=== PATIENT | male | born 1940 | race Caucasian/White ===

== ENCOUNTER 2016-07-05 09:28 | Day surgery (SDC) | payer MEDICARE, BC ==
[2016-07-05] MEDS ORDERED: Morphine INJ* 4 MG/ML 1 ML SYRINGE IV ONE ×2 (09:52→13:25)
[2016-07-05] MEDS ORDERED: NS 0.9% 1000 ML* 1,000 ML IV ONE (09:52)
[2016-07-05] MEDS: Ondansetron INJ* 2 MG/ML VIAL IV ONE ×3 (10:55→13:58)
[2016-07-05 11:02] LABS: Hematocrit 39 % (42-52); Hemoglobin 13.2 g/dl (14.0-18.0); Mean Corpuscular HGB Conc 34 g/dl (31-36); Mean Corpuscular Hemoglobin 31 pg (27-31); Mean Corpuscular Volume 91 fL (80-94); Mean Platelet Volume 8 um3 (7.4-10.4); Red Cell Distribution Width 14 % (10.5-15)
[2016-07-05 11:20] LABS: ALT 21 U/L (7-52); AST 20 U/L (13-39); Alkaline Phosphatase 61 U/L (34-104); Amylase 28 U/L (29-103); Anion Gap 6 mmol/L (2-11); BUN/Creatinine Ratio 17.4 (8-20); Blood Urea Nitrogen 15 mg/dL (6-24); C Reactive Protein 28.39 mg/L (< 5.00); CO2 Carbon Dioxide 28 mmol/L (22-32); Calcium 9.3 mg/dL (8.6-10.3); Chloride 102 mmol/L (101-111); EGFR African American 110.9 (>60); EGFR Non-African American 86.2 (>60); Globulin 2.9 g/dL (2-4); Glucose 111 mg/dL (70-100); Lipase < 10 U/L (11.0-82.0); Magnesium 1.8 mg/dL (1.9-2.7); Potassium 4.3 mmol/L (3.5-5.0); Sodium 136 mmol/L (133-145); Total Protein 6.9 g/dL (6.4-8.9)
[2016-07-05 11:21] LABS: Troponin I 0.01 ng/mL (<0.04)
[2016-07-05 12:22] LABS: Urine Bacteria Absent (Absent); Urine Bilirubin Negative (Negative); Urine Glucose Negative (Negative); Urine Nitrite Negative (Negative)
[2016-07-05] MEDS ORDERED: Morphine INJ* 4 MG/ML 1 ML SYRINGE ONE (13:26)
[2016-07-05] MEDS ORDERED: Ondansetron INJ* 2 MG/ML VIAL ONE ×2 (13:56→21:14)
[2016-07-05] MEDS ORDERED: Ondansetron INJ* 2 MG/ML VIAL IV ONE (14:01)
[2016-07-05] MEDS ORDERED: Iohexol 300* (CONTRAST) 10 ML SDV IV ONE (14:02)
--- NOTE | 2016-07-05 14:59 | RAD ---
INDICATION: Abdominal pain. Post Sheila fundoplication. Post prostatectomy. COMPARISON: May 15, 2012 MRI of the liver are remarkable for multiple hepatic hemangiomas. July 27, 2009 CT. TECHNIQUE: Multidetector CT images were obtained from the lung bases to the ischial tuberosities with 105 mL Omnipaque 300 IV and oral contrast. Multiplanar reformation. REPORT: Small calcified granulomas at the lung bases. Minimal dependent basilar atelectasis. Cardiomegaly and coronary artery calcifications. Negative for pericardial effusion. Grossly unchanged small hypodense hepatic lesions with subtle peripheral enhancement consistent with benign hemangiomas based on previous MRI. Dependent small stones in the normally distended gallbladder without additional abnormality of the gallbladder. Unremarkable pancreas and spleen. Moderate sliding-type hiatal hernia with increase in size. No associated mural thickening or perienteric inflammatory change. Negative for CT abnormality of the small bowel. Dilated infra cecal appendix measuring up to 1.1 cm diameter with mild periappendiceal inflammatory change reference axial images 61-67 and coronal reformatted images 38-49. The appendix previously measured 4 mm in diameter on the July 27, 2009 exam. Mild predominant sigmoid colon diverticulosis without findings of diverticulitis. Negative for ascites, free air, or significant hernias. Normal adrenal glands. 10 cm simple appearing water density cyst lower pole LEFT kidney. No suspicious renal lesions or hydronephrosis. Symmetric nephrograms and pyelograms. Unremarkable ureters and urinary bladder. Post surgical change of prostatectomy. Peripheral vascular disease. 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 Negative for aortoiliac aneurysm. Physiologic distention of the IVC. Negative for lymphadenopathy. Negative for suspicious osseous lesions. Polyarticular degenerative arthropathy. IMPRESSION: Acute appendicitis without evidence for periappendiceal abscess or associated bowel obstruction. Results discussed with Dr. Henderson 07/05/2016 2:55 PM EDT
--- NOTE | 2016-07-05 16:39 | ED ---
Juliana Tucker Alok, scribed for Erlin Henderson MD on 07/05/16 at 1006 . Abdominal Pain/Male - HPI Summary HPI Summary: 76 y/o male presents to the ED with RLQ abd pain since 1800 last night. Pt states what started as a moderate, constant pain throughout last night progressed to a severe pain as of this morning after attempting to vomit producing only dry heaves. His pain worsens with dry heaving and movement and improves while at rest. His pain is currently at a 10 out of 10 in severity. PMHx includes suspected but undiagnosed diverticulitis on the same side, hx of gallstones, and HLD. PSHx includes prostate surgery. Pt denies tobacco use and drinks EtOH occasionally. - History of Current Complaint Chief Complaint: EDAbdPain Stated Complaint: ABD PAIN Time Seen by Provider: 07/05/16 09:34 Hx Obtained From: Patient Onset/Duration: Gradual Onset, Lasting Hours, Worse Since - This morning after dry heaving Timing: Constant Severity Initially: Moderate Severity Currently: Moderate Pain Intensity: 10 Pain Scale Used: 0-10 Numeric Location: Discrete At: RLQ Radiates: No Character: Sharp Aggravating Factor(s): Movement, Other: - dry heaves Alleviating Factor(s): Position Associated Signs And Symptoms: Positive: Vomiting - dry heaves - Allergies/Home Medications Allergies/Adverse Reactions: Allergies Allergy/AdvReac Type Severity Reaction Status Date / Time Sulfa Drugs Allergy "FLU-LIKE Verified 08/01/15 13:29 SYSTEM" LACTOSE INTOLERENCE Allergy STOMACH Uncoded 08/01/15 13:29 Home Medications: Home Medications Aspirin EC Low Dose* [Ecotrin EC Low Dose 81 MG*] 81 mg PO DAILY 07/05/16 [ History Confirmed 07/05/16] Cholecalciferol TAB* [Vitamin D TAB*] 5,000 units PO DAILY 07/05/16 [History Confirmed 07/05/16] Flaxseed (Linseed) [Flax Seed Oil 1000 mg] 1 cap PO DAILY 07/05/16 [History Confirmed 07/05/16] Yrdlexdwagb-Uefdqourtxb-Cpa C- [Glucosamine Chondroitin] 1 tab PO DAILY [History Confirmed 07/05/16] Melatonin 1 mg PO BEDTIME 07/05/16 [History Confirmed 07/05/16] Multivitamins/Minerals TAB* [Theragran/minerals TAB*] 1 tab PO DAILY 07/05/16 [ History Confirmed 07/05/16] [place]-3 Fatty Acids (Nf) [Fish Oil (NF)] 1,000 mg PO DAILY 07/05/16 [History Confirmed 07/05/16] Simvastatin (NF) [Zocor (NF)] 40 mg PO BEDTIME 07/05/16 [History Confirmed 07/05] Thyroid [[place] Thyroid] 15 mg PO QAM 07/05/16 [History Confirmed 07/05/16] PMH/Surg Hx/FS Hx/Imm Hx Endocrine/Hematology History: Denies: Hx Diabetes Cardiovascular History: Reports: Hx Hypercholesterolemia Denies: Hx Hypertension, Hx Pacemaker/ICD GI History: Reports: Hx Gastroesophageal Reflux Disease, Hx Hiatal Hernia, Other GI Disorders - diarrhea/constipation lactose intolerant History: Reports: Other Problems/Disorders - prostatectomy Denies: Hx Renal Disease Musculoskeletal History: Reports: Hx Back Problems Sensory History: Reports: Hx Contacts or Glasses - reading glasses Denies: Hx Hearing Aid Opthamlomology History: Reports: Hx Contacts or Glasses - reading glasses Neurological History: Reports: Other Neuro Impairments/Disorders - Neuropathy of feet and lower legs. PAIN CLINIC PT Psychiatric History: Denies: Hx Panic Disorder - Cancer History Cancer Type, Location and Year: prostatectomy due to CA Hx Chemotherapy: No Hx Radiation Therapy: No - Surgical History Surgery Procedure, Year, and Place: RT KNEE SCOPE, LT HEEL SPURS, TONSILS, PROSTATECTOMY,APRIL FUNDOPLICATION,LASIK ON EYES Infectious Disease History: Yes Infectious Disease History: Reports: Hx Clostridium Difficile Denies: Traveled Outside the [place] in Last 30 Days - Family History Known Family History: Negative: Cardiac Disease, Hypertension, Diabetes - Social History Occupation: Retired Lives: With Family - Alcohol Use: Weekly Alcohol Amount: WINE Substance Use Type: Reports: None Smoking Status (MU): Never Smoked Tobacco Have You Smoked in the Last Year: No Review of Systems Negative: Fever Positive: Abdominal Pain - RLQ, Vomiting - Dry Heaves All Other Systems Reviewed And Are Negative: Yes Physical Exam - Summary Physical Exam Summary: VITAL SIGNS: Reviewed. GENERAL: ~Patient is a well developed and nourished male who is lying comfortable in the stretcher. ~Patient is not in any acute respiratory distress. HEAD AND FACE: Normocephalic EYES: PERRLA, EOMI x 2. EARS: Hearing grossly intact. MOUTH: Oropharynx within normal limits. NECK: Supple, trachea is midline, no adenopathy, no JVD, no carotid bruit. CHEST: Symmetric, no tenderness at palpation LUNGS: Clear to auscultation bilaterally. No wheezing or crackles. CVS: Regular rate and rhythm, S1 and S2 present, no murmurs or gallops appreciated. ABDOMEN: Positive RLQ tenderness. Positive guarding. Positive rebound. EXTREMITIES: Full ROM in all major joints, no edema, no cyanosis or clubbing. NEURO: Alert and oriented x 3. No acute neurological deficits. Speech is normal and follows commands. SKIN: Dry and warm Triage Information Reviewed: Yes Vital Signs On Initial Exam: Initial Vitals Temp Pulse Resp BP Pulse Ox 98.4 F 63 18 129/57 98 07/05/16 09:30 07/05/16 09:30 07/05/16 09:30 07/05/16 09:30 07/05/16 09:30 Vital Signs Reviewed: Yes - [place] Coma Scale Coma Scale Total: 15 Diagnostics - Vital Signs Vital Signs Temp Pulse Resp BP Pulse Ox 07/05/16 09:37 98.4 F 63 18 129/57 98 07/05/16 09:30 98.4 F 63 18 129/57 98 - Laboratory Lab Results: Lab Results 07/05/16 07/05/16 07/05/16 Range/Units 10:45 10:45 10:45 WBC 16.0 H (3.5-10.8) 10^3/ul RBC 4.30 (4.0-5.4) 10^6/ul Hgb 13.2 L (14.0-18.0) g/dl Hct 39 L (42-52) % MCV 91 (80-94) fL MCH 31 (27-31) pg MCHC 34 (31-36) g/dl RDW 14 (10.5-15) % Plt Count 198 (150-450) 10^3/ul MPV 8 (7.4-10.4) um3 Neut % (Auto) 89.3 H (38-83) % Lymph % (Auto) 5.4 L (25-47) % [place] % (Auto) 4.6 (1-9) % Eos % (Auto) 0.2 (0-6) % Baso % (Auto) 0.5 (0-2) % Absolute Neuts (auto) 14.3 H (1.5-7.7) 10^3/ul Absolute Lymphs (auto) 0.9 L (1.0-4.8) 10^3/ul Absolute Monos (auto) 0.7 (0-0.8) 10^3/ul Absolute Eos (auto) 0 (0-0.6) 10^3/ul Absolute Basos (auto) 0.1 (0-0.2) 10^3/ul Absolute Nucleated RBC 0.01 10^3/ul Nucleated RBC % 0.1 Sodium 136 (133-145) mmol/L Potassium 4.3 (3.5-5.0) mmol/L Chloride 102 (101-111) mmol/L Carbon Dioxide 28 (22-32) mmol/L Anion Gap 6 (2-11) mmol/L BUN 15 (6-24) mg/dL Creatinine 0.86 (0.67-1.17) mg/dL Est GFR ( Amer) 110.9 (>60) Est GFR (Non-Af Amer) 86.2 (>60) BUN/Creatinine Ratio 17.4 (8-20) Glucose 111 H (70-100) mg/dL Lactic Acid 1.1 (0.5-2.0) mmol/L Calcium 9.3 (8.6-10.3) mg/dL Magnesium 1.8 L (1.9-2.7) mg/dL Total Bilirubin 1.10 H (0.2-1.0) mg/dL AST 20 (13-39) U/L ALT 21 (7-52) U/L Alkaline Phosphatase 61 (34-104) U/L Troponin I 0.01 (<0.04) ng/mL C-Reactive Protein 28.39 H (< 5.00) mg/L Total Protein 6.9 (6.4-8.9) g/dL Albumin 4.0 (3.2-5.2) g/dL Globulin 2.9 (2-4) g/dL Albumin/Globulin Ratio 1.4 (1-3) Amylase 28 L (29-103) U/L Lipase < 10 L (11.0-82.0) U/L Urine Color Urine Appearance Urine pH (5-9) Ur Specific [place] (1.010-1.030) Urine Protein (Negative) Urine Ketones (Negative) Urine Blood (Negative) Urine Nitrate (Negative) Urine Bilirubin (Negative) Urine Urobilinogen (Negative) Ur Leukocyte Esterase (Negative) Urine WBC (Auto) (Absent) Urine RBC (Auto) (Absent) Urine Bacteria (Absent) Urine Glucose (Negative) Urine Ascorbic Acid (Negative) 07/05/16 Range/Units 11:40 WBC (3.5-10.8) 10^3/ul RBC (4.0-5.4) 10^6/ul Hgb (14.0-18.0) g/dl Hct (42-52) % MCV (80-94) fL MCH (27-31) pg MCHC (31-36) g/dl RDW (10.5-15) % Plt Count (150-450) 10^3/ul MPV (7.4-10.4) um3 Neut % (Auto) (38-83) % Lymph % (Auto) (25-47) % [place] % (Auto) (1-9) % Eos % (Auto) (0-6) % Baso % (Auto) (0-2) % Absolute Neuts (auto) (1.5-7.7) 10^3/ul Absolute Lymphs (auto) (1.0-4.8) 10^3/ul Absolute Monos (auto) (0-0.8) 10^3/ul Absolute Eos (auto) (0-0.6) 10^3/ul Absolute Basos (auto) (0-0.2) 10^3/ul Absolute Nucleated RBC 10^3/ul Nucleated RBC % Sodium (133-145) mmol/L Potassium (3.5-5.0) mmol/L Chloride (101-111) mmol/L Carbon Dioxide (22-32) mmol/L Anion Gap (2-11) mmol/L BUN (6-24) mg/dL Creatinine (0.67-1.17) mg/dL Est GFR ( Amer) (>60) Est GFR (Non-Af Amer) (>60) BUN/Creatinine Ratio (8-20) Glucose (70-100) mg/dL Lactic Acid (0.5-2.0) mmol/L Calcium (8.6-10.3) mg/dL Magnesium (1.9-2.7) mg/dL Total Bilirubin (0.2-1.0) mg/dL AST (13-39) U/L ALT (7-52) U/L Alkaline Phosphatase (34-104) U/L Troponin I (<0.04) ng/mL C-Reactive Protein (< 5.00) mg/L Total Protein (6.4-8.9) g/dL Albumin (3.2-5.2) g/dL Globulin (2-4) g/dL Albumin/Globulin Ratio (1-3) Amylase (29-103) U/L Lipase (11.0-82.0) U/L Urine Color Yellow Urine Appearance Clear Urine pH 8.0 (5-9) Ur Specific [place] 1.018 (1.010-1.030) Urine Protein 1+(30 mg/dl) H (Negative) Urine Ketones 1+ H (Negative) Urine Blood Negative (Negative) Urine Nitrate Negative (Negative) Urine Bilirubin Negative (Negative) Urine Urobilinogen Negative (Negative) Ur Leukocyte Esterase Negative (Negative) Urine WBC (Auto) Absent (Absent) Urine RBC (Auto) Absent (Absent) Urine Bacteria Absent (Absent) Urine Glucose Negative (Negative) Urine Ascorbic Acid * H (Negative) Result Diagrams: 07/05/16 10:45 07/05/16 10:45 Lab Statement: Any lab studies that have been ordered have been reviewed, and results considered in the medical decision making process. - CT Abd/Pel CT CT Interpretation: Positive (See Comments) - IMPRESSION: Acute appendicitis without evidence for periappendiceal abscess or associated bowel obstruction. Results discussed with Dr. Henderson 07/05/2016 2:[address] Interpretation Completed By: Radiologist Re-Evaluation - Re-Evaluation First Eval Re-Evaluation Time: 15:04 Abdominal Pain Fem Course/Dx - Course Course Of Treatment: 76 y/o male presents to the ED with RLQ abd pain since 1800 last night. Pt states what started as a moderate, constant pain throughout last night progressed to a severe pain as of this morning after attempting to vomit producing only dry heaves. His pain worsens with dry heaving and movement and improves while at rest. His pain is currently at a 10 out of 10 in severity. PMHx includes suspected but undiagnosed diverticulitis on the same side, hx of gallstones, and HLD. PSHx includes prostate surgery. Pt denies tobacco use and drinks EtOH occasionally. Assessment/Plan: Blood work nml except WBC 16 H, glucose 111 H, CRP 28.4. Abd/ Pel CT shows IMPRESSION: Acute appendicitis without evidence for periappendiceal abscess or associated bowel obstruction. Spoke with Dr. Leavitt ( Surgery) and admitted pt. Dr. Leavitt recommended no antibiotics before surgery. PA from Dr Monge came and examined patient. Pt given IV fluid as well as morphine and zofran for pain. At the moment pt is comfortable, hemodynamically stable, and alert and oriented x3. - Diagnoses Differential Diagnosis/HQI/PQRI: Bowel Obstruction, Constipation, Diverticulitis , Other - Appendicitis Provider Diagnoses: Appendicitis - Provider Notifications Discussed Care Of Patient With: Dr. Carter (Radiology) @ 2174 - Notes suspicion of acute appendicitis. Dr. Leavitt (Surgery) @ 9256 - He will come to see pt Discharge - Discharge Plan Condition: Stable Disposition: ADMITTED TO [facility] The documentation as recorded by the Juliana mahan Alok accurately reflects the service I personally performed and the decisions made by , Erlin Henderson MD.
--- NOTE | 2016-07-05 17:26 | HP ---
DATE OF ADMISSION: 07/05/2016. Patient was seen initially in the ED. ATTENDING SURGEON: Dr. Neri Leavitt (KELVIN Garner dictating). CHIEF COMPLAINT: Abdominal pain. HISTORY OF PRESENT ILLNESS: This is a 76-year-old male who beginning last evening began to experience some mid abdominal pain. He describes the pain as sharp and steady and has remained in the mid abdomen area. It has been associated with some nausea and anorexia. He did have some dry heaving this morning. He denies fever or chills. He has possibly had similar pain in the past, but nothing this severe and nothing recent. He has felt a bit constipated recently, but did have an otherwise normal bowel movement yesterday morning. He reports pain being as high as 10/10 and is somewhat less at present after receiving two doses of Morphine in the ED. He has had no recent symptoms. PAST MEDICAL HISTORY: Significant for hypertension, hyperlipidemia, chronic pain (low back), hypothyroidism, prostate cancer, and past TIA with negative work-up. PAST SURGICAL HISTORY: His previous surgeries include a previous laparoscopic Sheila fundoplication, radical prostatectomy for prostate cancer with no evidence of recurrence. He has also undergone previous knee arthroscopies for meniscal injuries and a lumbar spine decompressive surgery. No reported surgical problems, though he does report having difficulty waking up from anesthesia. CURRENT MEDICATIONS: 1. Aspirin 81 mg once daily. 2. Gabapentin 100 mg two tablets at bedtime. 3. [place] Thyroid 30 mg one-half tablet q.a.m. 4. Zocor 40 mg at bedtime. 5. [place] 3 1000 mg once daily. 6. Melatonin 1 mg at bedtime. 7. Glucosamine Chondroitin once daily. 8. Flaxseed supplement daily. 9. Vitamin D daily. 10. Diclofenac one percent topical gel prn. 11. Multivitamin once daily. ALLERGIES: SULFA (ACHINESS). He is also LACTOSE INTOLERANT. FAMILY HISTORY: Negative for anesthesia problems, bleeding or clotting disorders. SOCIAL HISTORY: The patient is and his accompanies him in the ED. 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 He denies use of tobacco and drinks less than one drink per day. REVIEW OF SYSTEMS: General: No recent constitutional symptoms or acute illnesses other than described in the HPI and above. Cardiovascular: He is not currently treated for hypertension. He does have a past history of a TIA. No coronary disease. Respiratory: No history of asthma, chronic cough or shortness of breath. GI: He denies GERD symptoms since his Sheila fundoplication. No significant lower GI symptoms. Colonoscopy done within the past five years and reportedly normal. : No problems reports. He knows of the existence of a long-standing left renal cyst as demonstrated on today's CT. Prostate cancer history as noted without evidence of recurrence. Endocrine: No diabetes. He is recently diagnosed as being hypothyroid and is currently on replacement. PHYSICAL EXAMINATION GENERAL: Well-nourished, well-developed male in no acute distress. He complains of pain, but is also a bit groggy. SKIN: Warm and dry. He has had numerous basal cells removed previously and has some evidence of actinic keratosis. No suspicious rashes or lesions. VITAL SIGNS: Height 5'10", weight 175 pounds. Temperature 98.4, blood pressure 137/61, pulse 75, respirations 18, room air saturation 97 percent. HEENT: Pupils equal and round, reactive. EOM's intact. No conjunctival pallor or scleral icterus. Oropharynx: His mucus membranes are dry. Teeth in good repair. No intra-oral lesions. NECK: No lymphadenopathy, thyromegaly or masses. LUNGS: Clear to auscultation. No wheezes. HEART: Regular rate and rhythm. No murmur noted. ABDOMEN: Reveals a well-healed lower midline incision. Bowel sounds are present. Soft with tenderness and guarding in the right lower quadrant with positive rebound and referred tenderness. The remainder of the abdomen is soft and nontender and without palpable masses or organomegaly. No palpable inguinal hernias. BACK: Well-healed surgical scar in the lumbar region. No spinous process or CVA tenderness. EXTREMITIES: No edema. GENITALIA: Otherwise not examined. RECTAL: Not done. NEUROLOGIC: Grossly intact. LABORATORY DATA: Of note, white blood cell count 16,000 with a left shift. Lactic acid is normal at 1.1; liver function test, amylase and lipase are normal ; CRP is elevated at 28. CT scan of the abdomen and pelvis with contrast demonstrates gallstones, moderate sized hiatal hernia, a 1.1 cm diameter appendix with inflammatory changes consistent with acute appendicitis, a 10 cm left renal cyst, and a small aneurysm at the celiac axis, both of which are unchanged from previous scan of 2009. IMPRESSION: Acute appendicitis. PLAN: Laparoscopic appendectomy after confirmation of exam and plan with Dr. Leavitt. KELVIN IRWIN CC: Dr. Max Newsome* [id number]/[facility] #: [id number] [facility]
[2016-07-05] MEDS ORDERED: metroNIDAZOLE IV 500 MG/100ML* 500 MG/100 ML BAG IVPB ONE (17:27)
[2016-07-05] MEDS ORDERED: Bupivacaine 0.25% EPI 200,000* 30 ML SDV ONE (17:52)
[2016-07-05] MEDS ORDERED: fentaNYL* 50 MCG/ML 2 ML VIAL (100 MCG VIAL) ONE (18:09)
[2016-07-05] MEDS ORDERED: Dexamethasone IV* 4 MG/ML 1 ML (4 MG) ONE (18:09)
[2016-07-05] MEDS ORDERED: Lidocaine 2% PF* 5 ML VIAL ONE (18:09)
[2016-07-05] MEDS ORDERED: Succinylcholine* 20 MG/ML 10 ML VIAL ONE (18:09)
[2016-07-05] MEDS ORDERED: Propofol* 10 MG/ML 20 ML BTL IV PUSH ONE (18:09)
[2016-07-05] MEDS ORDERED: Scopolamine 1.5 mg* PATCH ONE (18:25)
[2016-07-05] MEDS ORDERED: fentaNYL* 50 MCG/ML 2 ML VIAL (100 MCG VIAL) IV PRN (18:48)
[2016-07-05] MEDS ORDERED: HYDROmorphone* 1 MG/ML 1 ML SYR IV PRN (18:48)
[2016-07-05] MEDS ORDERED: DiMENhydriNATE IV* 50 MG/ML VIAL IV PUSH PRN (18:48)
[2016-07-05] MEDS ORDERED: HYDROcodone/ACETAMIN 5-325 MG* 1 TAB PO PRN (19:06)
[2016-07-05] MEDS ORDERED: Acetaminophen TAB* 325 MG PO PRN (19:07)
[2016-07-05 21:02] VITALS: BP 109/70
[2016-07-05] MEDS ORDERED: DiMENhydriNATE IV* 50 MG/ML VIAL ONE (21:16)
--- NOTE | 2016-07-06 12:42 | OP ---
CC: Dr. Neri Leavitt; Dr. Max Newsome. OPERATIVE REPORT: DATE OF OPERATION: 07/05/16. DATE OF : 38. SURGEON: Neri Leavitt MD. SILVER HOLLOWARE ASSEMBLER: None. ANESTHESIOLOGIST: Dr. Watson. ANESTHESIA: General anesthetic. PRE-OP DIAGNOSIS: Appendicitis. POST-OP DIAGNOSIS: Appendicitis. OPERATIVE PROCEDURE: Laparoscopic appendectomy. FINDINGS: Suppurative appendicitis. DESCRIPTION OF PROCEDURE: The patient was supine on the operative table. After adequate general an esthetic, compression stockings, Margoth Hugger warmer and intravenous antibiotics, the abdomen was pre pped with antiseptic, draped in a sterile fashion. Local infiltrative anesthesia was administered a nd a small umbilical incision was created. Blunt port cannula was placed. Insufflation was carried out with carbon dioxide. Additional cannulae at 5-mm left lower quadrant and left mid abdomen were placed through small stab wounds under direct vision. The cecum was tented upward. The appendix was suppurative in nature. No evidence of perforation. No gangrene. The small bowel in the region wa s normal. The appendix was tented upward. The mesoappendix was pared down a little bit with electr ocautery to allow room for an EndoGIA stapler. Ugalde cartridge was used to transect the mesoappendix and the base of the appendix. Second firing was needed to the complete the transection. The append ix was placed in retrieval bag and brought out through the umbilical site. The operative field was irrigated with warm saline solution. Free fluid was suctioned out. Hemostasis was excellent. Stapl e line was in excellent condition. The cannulae removed. Pneumoperitoneum was allowed to escape. Umbilical fascia was closed with 0 Polysorb and skin with 5- 0 Polysorb followed by Steri-Strips. H e tolerated the procedure well, was awakened and then brought to recovery in good condition. No com plications, no drains. Pathological specimen, appendix. Sponge and instrument counts are correct. E stimated blood loss is less than 10 mL. [id number]/[facility] #: [id number]
[2016-07-08] MEDS ORDERED: Scopolomine PATCH Remove* 1 NOTE MISC PATCH OFF ONE (18:50)
== END 2016-07-05 19:06 | disposition home or self-care (01) ==
LOC: ED 09:28 → OR 19:06
PROVIDERS: ATTEND Surgery
DX: K35.80 Unspecified acute appendicitis (principal); I10 Essential (primary) hypertension; E78.5 Hyperlipidemia, unspecified; E03.9 Hypothyroidism, unspecified; Z85.46 Personal history of malignant neoplasm of prostate; Z79.82 Long term (current) use of aspirin
CPT/HCPCS: 36415; 74177; 80053; 81003; 81015; 82150; 83605; 83690; 83735; 84484; 85025; 86140; 88304; 96374; 99282; A9270-GY; J0330; J1100; J1240; J2270; J2405; J2704; J3010; Q9967

== ENCOUNTER 2017-02-17 08:47 | Emergency (ER) | payer MEDICARE, BC ==
[2017-02-17 09:06] VITALS: BP 155/84
--- NOTE | 2017-02-17 10:35 | UC ---
Martínez Tucker Jason, scribed for Christelle Barajas MD on 02/17/17 at 0925 . Hip/Pelvis Pain - HPI Summary HPI Summary: This patient is a 77 year old M presenting to [facility] with a chief complaint of hip joint since 4 days ago. The patient reports that he has had right hip joint tightness and discomfort for several years, and received his first physical therapy deep tissue massage 4 days ago. Since his massage, he has had right hip joint soreness radiating to his back and to the thigh, and has had trouble sleeping at night. The patient currently rates the pain 6/10 in severity. Symptoms aggravated by nothing. Symptoms mildly alleviated by ibuprofen, and icing and heating. Patient denies spinal pain. - History Of Current Complaint Chief Complaint: UCLowerExtremity Stated Complaint: HIP JOINT PAIN Time Seen by Provider: 02/17/17 09:13 Hx Obtained From: Patient Onset/Duration: Gradual Onset, Lasting Days - Since 4 days ago, Still Present Timing: Constant Pain Intensity: 6 Pain Scale Used: 0-10 Numeric Location: Radiates To: - thigh and back Aggravating Factor(s): Nothing Alleviating Factor(s): Other - mildly alleviated by ibuprofen, and icing and heating Associated Signs And Symptoms: Positive: Negative - spinal pain - Risk Factors Septic Arthritis Risk Factor: Negative - Allergies/Home Medications Allergies/Adverse Reactions: Allergies Allergy/AdvReac Type Severity Reaction Status Date / Time Sulfa Drugs Allergy "FLU-LIKE Verified 08/01/15 13:29 SYSTEM" LACTOSE INTOLERENCE Allergy STOMACH Uncoded 08/01/15 13:29 PMH/Surg Hx/FS Hx/Imm Hx Previously Healthy: No Endocrine History: Hypothyroidism Neurological History: Other - bilateral foot neuropathy Other Neurological History: idiopathic bilateral neuropathy Cancer History: Prostate Cancer - Surgical History Surgical History: Yes Surgery Procedure, Year, and Place: RT KNEE SCOPE, LT HEEL SPURS, TONSILS, PROSTATECTOMY,APRIL FUNDOPLICATION,LASIK ON EYES,appendix 06/2016 - Family History Known Family History: Negative: Cardiac Disease, Hypertension, Diabetes - Social History Occupation: Retired Alcohol Use: Weekly Alcohol Amount: WINE Substance Use Type: None Smoking Status (MU): Never Smoked Tobacco Have You Smoked in the Last Year: No - Immunization History Most Recent Influenza Vaccination: 2012 Most Recent Tetanus Shot: >5yrs Most Recent Pneumonia Vaccination: >5yrs Review of Systems Constitutional: Negative - fever, Fatigue - secondary to poor sleep. Skin: Negative Eyes: Negative ENT: Negative Respiratory: Negative Cardiovascular: Negative Gastrointestinal: Negative Genitourinary: Negative Motor: Negative Neurovascular: Negative Musculoskeletal: Negative - Spinal pain, Other: - Right hip joint pain radiating to the thigh and back. Neurological: Negative Psychological: Negative All Other Systems Reviewed And Are Negative: Yes Physical Exam Triage Information Reviewed: Yes Appearance: Well-Appearing, Pain Distress - mild Vital Signs: Initial Vital Signs Temp 98 F 02/17/17 08:53 Pulse 75 02/17/17 08:53 Resp 16 02/17/17 08:53 BP 155/84 02/17/17 08:53 Pulse Ox 98 02/17/17 08:53 Vital Signs Reviewed: Yes Eye Exam: Normal ENT: Positive: Pharynx normal Neck: Positive: Supple, Nontender Respiratory: Positive: Lungs clear, Normal breath sounds Cardiovascular: Positive: RRR, No Murmur Abdomen Description: Positive: Nontender, No Organomegaly, Soft Musculoskeletal: Positive: ROM Limited @ - right hip with decreased abduction and IR. Very tight hamstrings with limited SLR to 80 degrees. Tenderness right greater trochanter, alont IT band. FF at lumbar spine limited by tight hamstrings. Balance fair. Neurological: Positive: Alert, Muscle Tone Normal Psychological Exam: Normal Skin Exam: Normal Diagnostics - Radiology hip/pelvis x-ray Radiology Interpretation Completed By: ED Physician - Mild degenerative arthritis, otherwise normal bone structures. Hip Injury Course/Dx - Course Course Of Treatment: High blood pressure noted. brief use of meloxicam for suspected bursitis, IT band syndrome. increase gabapentin to 400mg at bedtime to help with pain control. referral to Dr. White. - Differential Dx/Diagnosis Differential Diagnosis/HQI/PQRI: Arthritis, Bursitis, Sprain, Strain, Tenosynovitis Provider Diagnoses: Iliotibial band syndrome and trochanteric bursitis. Discharge - Discharge Plan Condition: Stable Disposition: HOME Prescriptions: Meloxicam [Mobic] 7.5 mg PO BID #30 tab Patient Education Materials: Hip Bursitis (ED), Iliotibial Band Syndrome (ED) Referrals: Donny White MD [Medical Doctor] - Max Newsome MD [Primary Care Provider] - Additional Instructions: Begin use of meloxicam 7.5mg twice daily as an anti-inflammatory, limiting use to the time needed. HOLD your aspirin while taking this, and do not use other anti-inflammatories. I suggest referral to Dr. White, who can do an ultrasound assessment to determine if an injection might help you. Continue physical therapy for treatment . The documentation as recorded by the Martínez mahan Jason accurately reflects the service I personally performed and the decisions made by me, Christelle Barajas MD.
--- NOTE | 2017-02-17 10:56 | RAD ---
INDICATION: Right hip pain COMPARISON: None TECHNIQUE: 3 views of the right hip were obtained. FINDINGS: The visualized bones of the right hip are well-corticated and properly aligned. Degenerative changes of the right hip include mild narrowing of the superior joint space with mild sclerotic change of the acetabulum. There is no radiographic evidence of acute fracture or dislocation. Incidentally noted is coarse atherosclerotic calcification of the visualized common femoral, superficial femoral and femoral profundus arteries. There are surgical clips at the bilateral anterior pelvis. IMPRESSION: 1. Mild degenerative changes of the right hip as described above. 2. Incidentally noted is calcified atherosclerosis of the visualized iliofemoral arteries. These correlate to signs and symptoms of claudication. If the patient's symptoms persist follow-up imaging is recommended.
== END 2017-02-17 10:50 | disposition home or self-care (01) ==
LOC: UCEAST 08:47
DX: M76.31 Iliotibial band syndrome, right leg (principal); M70.61 Trochanteric bursitis, right hip; R03.0 Elevated blood-pressure reading, without diagnosis of hypertension
CPT/HCPCS: 99212; G0463

== ENCOUNTER 2017-05-06 14:05 | Emergency (ER) | payer MEDICARE, BC ==
[2017-05-06 15:09] VITALS: BP 135/82
--- NOTE | 2017-05-06 16:21 | UC ---
Fede Tucker Julia, scribed for Ricardo Bueno MD on 05/06/17 at 1537 . General HPI - HPI Summary HPI Summary: This patient is a 77 year old M presenting to [facility] [place] accompanied by with a chief complaint of resolved nausea and diarrhea (X3) last night. Patient reports gradually worsening cough, body aches, chills, and fatigue since . Patient rates the pain 9/10 in severity. Pts is a sick contact. Symptoms alleviated by Tylenol and Nasaline. Pt reports similar symptoms to previous influenza. - History of Current Complaint Chief Complaint: UCRespiratory Stated Complaint: FLU SYMPTOMS Hx Obtained From: Patient Onset/Duration: Gradual Onset, Lasting Days Timing: Constant Pain Intensity: 9 Pain Location at: general Character: achy Alleviating: Tylenol nasaline Associated Signs & Symptoms: Positive: Cough, Fever, Nausea, Other - Fatigue - Allergy/Home Medications Allergies/Adverse Reactions: Allergies Allergy/AdvReac Type Severity Reaction Status Date / Time Sulfa (Sulfonamide Allergy "FLU LIKE Verified 05/06/17 15:10 Antibiotics) SYSTEM" LACTOSE INTOLERENCE Allergy STOMACH Uncoded 05/06/17 15:10 Home Medications: Home Medications Acetaminophen [Mapap] 1,000 mg PO PRN 05/06/17 [History] PMH/Surg Hx/FS Hx/Imm Hx Cardiovascular History: Other - HLD Other Cardiovascular History: HLD - Surgical History Surgical History: Yes Surgery Procedure, Year, and Place: RT KNEE SCOPE, LT HEEL SPURS, TONSILS, PROSTATECTOMY,APRIL FUNDOPLICATION,LASIK ON EYES,appendix 06/2016; lumbar laminectomy - Family History Known Family History: Negative: Cardiac Disease, Hypertension, Diabetes - Social History Alcohol Use: Occasionally Alcohol Amount: 3 OUNCES WINE DAILY Substance Use Type: None Smoking Status (MU): Never Smoked Tobacco Have You Smoked in the Last Year: No - Immunization History Most Recent Influenza Vaccination: 2012 Most Recent Tetanus Shot: >5yrs Most Recent Pneumonia Vaccination: >5yrs Review of Systems Constitutional: Fever, Chills, Fatigue Respiratory: Cough Gastrointestinal: Diarrhea, Nausea Musculoskeletal: Myalgia - general All Other Systems Reviewed And Are Negative: Yes Physical Exam Triage Information Reviewed: Yes Vital Signs: Initial Vital Signs Temp 99.2 F 05/06/17 15:04 Pulse 83 05/06/17 15:04 Resp 16 02/05/18 15:04 BP 135/82 05/06/17 15:04 Pulse Ox 98 05/06/17 15:04 Vital Signs Reviewed: Yes - Additional Comments Appearance: Well-appearing, Well-nourished Skin: Warm Neck: Supple, nontender Respiratory: Clear to auscultation Cardiovascular: Normal S1, S2. No murmurs. Normal distal pulses in tibial and radial bilaterally. General: No acute distress Course/Dx - Course Course Of Treatment: + flu swab, already out of window for treatment, tolerating pO normally. vital wnl, appears well, instructed to fu with pmd. agres to and understnads dc instructions. - Differential Dx - Multi-Symptom Provider Diagnoses: INFLUENZA Discharge - Discharge Plan Condition: Guarded Disposition: HOME Patient Education Materials: Influenza (ED) Referrals: Max Newsome MD [Primary Care Provider] - Additional Instructions: PLEASE KEEP YOURSELF WELL HYDRATED WITH SMALL AMOUNTS OF FLUID MORE FREQUENTLY THROUGHOUT THE DAY PLEASE SEEK MEDICATION ATTENTION IMMEDIATELY IF YOU HAVE ANY WORSENING OR CONCERNING SYMPTOMS PLEASE MAKE AN APPOINTMENT TO BE SEEN BY YOUR PRIMARY CARE DOCTOR WITHIN 1 WEEK The documentation as recorded by the Fede mahan Julia accurately reflects the service I personally performed and the decisions made by me, Ricardo Bueno MD.
== END 2017-05-06 16:25 | disposition home or self-care (01) ==
LOC: UCEAST 14:05
DX: J11.1 Influenza due to unidentified influenza virus with other respiratory manifestations (principal); E78.5 Hyperlipidemia, unspecified; Z88.2 Allergy status to sulfonamides
CPT/HCPCS: 87502; 99212; G0463

== ENCOUNTER 2017-11-16 11:22 | Emergency (ER) | payer MEDICARE, BC ==
--- NOTE | 2017-11-16 11:48 | ED ---
Neurological HPI - HPI Summary HPI Summary: The pt is a 77 y/o male [facility] c/o slurred speech since 3 days ago at 16:00. He notes a facial droop, difficulty finding words, reduced bowel movements, and confusion. Normal bowel movements resumed 2 days ago but the other sx persisted. His reports a five-minute facial droop yesterday when the pt tried to smile. The sx are similar to an episode of TIA 4 years ago. The pt was referred by his PCP (Max Newberry MD) the ED for further evaluation. This is scribe Kate Pat documenting for attending Arun Ramos MD. I, Arun Ramos MD, personally performed the services described in this documentation as scribed in my presence and it is both accurate and complete. 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) Episode Lasting: Seconds/Minutes - Mouth droop lasts 5 minutes whiledifficulty finding words is intermittent - Allergy/Home Medications Allergies/Adverse Reactions: Allergies Allergy/AdvReac Type Severity Reaction Status Date / Time Sulfa (Sulfonamide Allergy "FLU LIKE Verified 05/06/17 15:10 Antibiotics) SYSTEM" LACTOSE INTOLERENCE Allergy STOMACH Uncoded 05/06/17 15:10 PMH/Surg Hx/FS Hx/Imm Hx Previously Healthy: No Endocrine/Hematology History: Reports: Hx Thyroid Disease Denies: Hx Diabetes Cardiovascular History: Reports: Hx Hypercholesterolemia Denies: Hx Hypertension, Hx Pacemaker/ICD Respiratory History: Denies: Hx Asthma, Hx Chronic Obstructive Pulmonary Disease (COPD) GI History: Reports: Hx Gastroesophageal Reflux Disease, Hx Hiatal Hernia, Other GI Disorders - diarrhea/constipation lactose intolerant Denies: Hx Ulcer History: Reports: Other Problems/Disorders - prostatectomy Denies: Hx Renal Disease Musculoskeletal History: Reports: Hx Back Problems - stenosis Denies: Hx Rheumatoid Arthritis, Hx Osteoporosis Sensory History: Reports: Hx Contacts or Glasses - reading glasses Denies: Hx Hearing Aid Opthamlomology History: Reports: Hx Contacts or Glasses - reading glasses Neurological History: Reports: Other Neuro Impairments/Disorders - Neuropathy of feet and lower legs. PAIN CLINIC PT Psychiatric History: Denies: Hx Panic Disorder - Cancer History Cancer Type, Location and Year: prostatectomy due to CA. SKIN CARCINOMA Hx Chemotherapy: No Hx Radiation Therapy: No - Surgical History Surgery Procedure, Year, and Place: RT KNEE SCOPE, LT HEEL SPURS, TONSILS, PROSTATECTOMY,APRIL FUNDOPLICATION,LASIK ON EYES,appendix 06/2016; lumbar laminectomy Infectious Disease History: Reports: Hx Clostridium Difficile - about 10 years ago, Hx Human Immunodeficiency Virus (HIV) - prostate cancer, skin leasions Denies: Hx Hepatitis, Hx of Known/Suspected MRSA, Hx Shingles, Hx Tuberculosis, Hx Known/Suspected VRE, Hx Known/Suspected VRSA, History Other Infectious Disease - Family History Known Family History: Negative: Cardiac Disease, Hypertension, Diabetes - Social History Occupation: Retired Lives: With Family Alcohol Use: Occasionally Alcohol Amount: 3 OUNCES WINE DAILY Substance Use Type: Reports: None Smoking Status (MU): Never Smoked Tobacco Have You Smoked in the Last Year: No Review of Systems Constitutional: Other - Positive: Confusion Gastrointestinal: Other - Decreased bowel movements (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 Skin: The skin is warm and dry and skin color reflects adequate perfusion. HEENT: The head is normocephalic and atraumatic. The pupils are equal and reactive. The conjunctivae are clear and without drainage. Nares are patent and without drainage. Mouth reveals moist mucous membranes and the throat is without erythema and exudate. The external ears are intact. The ear canals are patent and without drainage. The tympanic membranes are intact. Neck: The neck is supple with full range of motion and non-tender. There are no carotid bruits. There is no neck vein distension. Respiratory: Chest is non-tender. Lungs are clear to auscultation and breath sounds are symmetrical and equal. Cardiovascular: Heart is regular rate and rhythm. There is no murmur or rub auscultated. There is no peripheral edema and pulses are symmetrical and equal. Abdomen: The abdomen is soft and non-tender. There are normal bowel sounds heard in all four quadrants and there is no organomegaly palpated. Musculoskeletal: There is no back tenderness noted. Extremities are non-tender with full range of motion. There is good capillary refill. There is no peripheral edema or calf tenderness elicited. Neurological: Patient is alert and oriented to person, place and time. The patient has symmetrical motor strength in all four extremities. Cranial nerves are grossly intact. Deep tendon reflexes are symmetrical and equal in all four extremities. NIH Scale: 1; Pt had little difficulty with word finding GCS: 15 Psychiatric: The patient has an appropriate affect and does not exhibit any anxiety or depression. Diagnostics - Laboratory Result Diagrams: 11/16/17 12:14 11/16/17 12:14 Lab Statement: Any lab studies that have been ordered have been reviewed, and results considered in the medical decision making process. - Radiology Brain CT WO contrast Radiology Interpretation Completed By: Radiologist - IMPRESSION: CHRONIC SMALL VESSEL ISCHEMIC CHANGES WITH AGE-INDETERMINATE LACUNAR INFARCT OF THE LEFT BASAL GANGLIA. The ED Physician has reviewed this radiology report and agrees with it. - CT CTA Head CT Interpretation Completed By: Radiologist - IMPRESSION: 1. ATHEROSCLEROSIS. 2. NO INTERNAL CAROTID ARTERY STENOSIS BY NASCET CRITERIA. 3. NO ANEURYSM, VASCULAR MALFORMATION, OCCLUSION, OR STENOSIS OF THE VISUALIZED INTRACRANIAL CIRCULATION. The ED physician has reviewed this radiology report and agrees with it. Brain CT WO contrast CT Interpretation Completed By: Radiologist - IMPRESSION: CHRONIC SMALL VESSEL ISCHEMIC CHANGES WITH AGE-INDETERMINATE LACUNAR INFARCT OF THE LEFT BASAL GANGLIA. The ED Physician has reviewed this radiology report and agrees with it. - EKG 11:53 Cardiac Rate: NL - 71 bpm EKG Rhythm: 1st Degree HB ST Segment: Normal Ectopy: None NIH Scale - NIH Scale Level of Consciousness: Alert/Keenly Responsive Ask Patient the Month and His/Her Age: Both Correct Ask Pt to Open/Close Eyes and Store Stock Associate/Release Non-Paretic Hand: Both Correctly Best Gaze (Only Horizontal Eye Movement): Normal Visual Field Testing: No Visual Loss Facial Paresis-Pt to Smile & Close Eyes or Grimace Symmetry: Normal/Symmetrical Motor Function - Right Arm: No Drift-Holds 10 Seconds Motor Function - Left Arm: No Drift-Holds 10 Seconds Motor Function - Right Leg: No Drift-Holds 10 Seconds Motor Function - Left Leg: No Drift-Holds 10 Seconds Limb Ataxia-Must be out of Proportion to Weakness Present: Absent Sensory (Use Pinprick to Test Arms/Legs/Trunk/Face): Normal Best Language (Describe Picture, Name Items): Some Loss Dysarthria (Read Several Words): Normal Extinction and Inattention: No Abnormality Total Score: 1 Course/Dx - Course Course Of Treatment: Mr. Adames presented with what sounds like a small CVA which occurred last Saturday. He has been left with a little bit of word finding difficulty although he is quite articulate here. His initial workup was negative and I spoke with Dr. Chen who recommended admission and further workup. Mr. Adames adamantly refuses to stay in the hospital but did agree to follow up with his PCP on Saturday. He may need an MRI scan. - Diagnoses Provider Diagnoses: CVA (cerebral vascular accident) - Physician Notifications Discussed Care Of Patient With: Neri Chen - Neurologist Time Discussed With Above Provider: 13:45 Instructed by Provider To: Admit As Inpatient Discharge - Sign-Out/Discharge Documenting (check all that apply): Patient Departure - DC - Discharge Plan Condition: Stable Disposition: HOME Patient Education Materials: Stroke (DC) Referrals: Max Newsome MD [Primary Care Provider] - 3 Days Additional Instructions: Return to ED for any new or worsening symptoms - Billing Disposition and Condition Condition: STABLE Disposition: Home
[2017-11-16 12:26] LABS: ABS Basophils 0.1 10^3/ul (0-0.2); ABS Eosinophils 0.1 10^3/ul (0-0.6); ABS Lymphocytes 1.1 10^3/ul (1.0-4.8); ABS Monocytes 0.6 10^3/ul (0-0.8); ABS Neutrophils 5.7 10^3/ul (1.5-7.7); ABS Nucleated RBC 0 10^3/ul; Eosinophil % 1.4 % (0-6); Hematocrit 39 % (42-52); Hemoglobin 13.3 g/dl (14.0-18.0); Lymphocyte % 14.3 % (25-47); Mean Corpuscular HGB Conc 34 g/dl (31-36); Mean Corpuscular Hemoglobin 32 pg (27-31); Mean Corpuscular Volume 92 fL (80-94); Mean Platelet Volume 7.6 um3 (7.4-10.4); Nucleated Red Blood Cells % 0; Platelet Count 206 10^3/ul (150-450); Red Blood Count 4.18 10^6/ul (4.00-5.40); Red Cell Distribution Width 14 % (10.5-15); White Blood Count 7.5 10^3/ul (3.5-10.8)
[2017-11-16 12:38] LABS: INR 0.95 (0.77-1.02)
--- OUTSIDE RECORDS SUMMARY | 2017-11-16 12:56 | XMS REPORT ---
:1940 External Reference #:[id number] Author Organization Pedrito Ahmadi M.D., [facility] Address [address] [facility] [address] [place] [address] Phone [phone] Care Team Providers Name Role Phone Max Newsome MD Care Team Information Junior Underwriter Unavailable Max Newsome MD Primary Care Physician Unavailable Payers Type Date Identification Numbers Payment Provider Subscriber Medicare Primary Policy Number: [id number] [place] Ad[place] PayID: [id number] [address] [place] [address] Problems Description No Information Family History Date Family Member(s) Problem(s) Comments Father due to Liver Cancer () Father due to Stomach Cancer () Mother due to Stroke () Social History Type Date Description Comments ETOH Use Occasionally consumes wine Smoking Patient has never smoked Allergies, Adverse Reactions, Alerts Date Description Reaction Status Severity Comments 10/17/2017 Sulfa Antibiotics active Medications Medication Date Status Form Strength Qnty SIG Indications Ordering Provider Gabapentin Active Capsules 100mg Unknown 000 Levothyroxine Active Tablets 75mcg take 1 Unknown Sodium 000 tablet by mouth once daily Vital Signs Date Vital Result Comment 10/31/2017 Intraocular Pressure Right Eye 11 mmHg Intraocular Pressure Left Eye 11 mmHg 10/17/2017 Intraocular Pressure Right Eye 11 mmHg Intraocular Pressure Left Eye 11 mmHg Results Description No Information Procedures Date CPT Code Description Status 10/31/2017 61768 Ophthalmic Biometry By Partial Coherence Interferometry Completed W/Intra 10/31/2017 40370 Eye Exam Est Intermediate Completed 10/17/2017 57255 Fundus Photography W/Interpretation & Report Completed 10/17/2017 13926 Eye Exam New Comprehensive Completed Plan of Care 10/31/2017 - Pedrito Ahmadi M.D.H25.13 Age-related nuclear cataract, bilateralComments:Risks, benefits and alternatives to cataract extraction and posterior chamber intraocular lens placement explained, understood and accepted including but not limited to: re-operation, infection, retinal detachment, glaucoma, bleeding in the eye, retained lens material, corneal or macular edema , need for glasses, poor vision and other.Follow up:Schedule patient for the next available cataract surgery date.
[2017-11-16 12:58] LABS: Urine Appearance Clear; Urine Blood Negative (Negative); Urine Color Yellow; Urine Ketones Negative (Negative); Urine Protein Negative (Negative); Urine Specific Gravity 1.006 (1.010-1.030); Urine Urobilinogen Negative (Negative)
--- OUTSIDE RECORDS SUMMARY | 2017-11-16 12:59 | XMS REPORT ---
:1940 External Reference #:[id number] Author Organization Pedrtio Ahmadi M.D., [facility] Address [address] [place] [address] Phone [phone] Care Team Providers Name Role Phone Max Newsome MD Care Team Information Landing Signal Officer Unavailable Max Newsome MD Primary Care Physician Unavailable Problems Description No Information Family History Date [...] daily Vital Signs Date Vital Result Comment 10/17/2017 Intraocular Pressure Right Eye 11 mmHg Intraocular Pressure Left Eye 11 mmHg Results Description No Information Procedures Date CPT Code Description Status 10/17/2017 50162 Fundus Photography W/Interpretation & Report Completed 10/17/2017 56635 Ophthalmoscopy Initial Completed 10/17/2017 17996 Eye Exam New Comprehensive Completed Plan of Care 10/17/2017 - Pedrito Ahmadi M.D.H25.13 Age-related nuclear cataract, bilateralFollow up:A scans, OCT mac obtain old [id number] Nexdtve age- related mclr degn, bilateral, early dry stageFollow up:A scans, OCT mac obtain old [id number] Senile ectropion of left lower eyelidFollow up:A scans, OCT mac obtain old records
--- NOTE | 2017-11-16 13:09 | RAD ---
HISTORY: aphasia COMPARISONS: October 26, 2013 TECHNIQUE: Multiple contiguous axial CT scans were obtained of the head without intravenous contrast. FINDINGS: HEMORRHAGE/INFARCT: There is no hemorrhage or acute infarct. MASSES/SHIFT: There is no mass or shift. EXTRA-AXIAL SPACES: There are no extra-axial fluid collections. SULCI AND VENTRICLES: The sulci and ventricles are normal in size and position for the patient's stated age. CEREBRUM: There is hypoattenuation of the periventricular and subcortical white matter. There is an age-indeterminate lacunar infarct of the left basal ganglia. BRAINSTEM: There are no focal parenchymal abnormalities. CEREBELLUM: There are no focal parenchymal abnormalities. VESSELS: There is calcification of the cavernous segments of the internal carotid arteries bilaterally. PARANASAL SINUSES: The paranasal sinuses are clear. ORBITS: The orbits are unremarkable. BONES AND SOFT TISSUE: No bone or soft tissue abnormalities are noted. OTHER: None IMPRESSION: CHRONIC SMALL VESSEL ISCHEMIC CHANGES WITH AGE-INDETERMINATE LACUNAR INFARCT OF THE LEFT BASAL GANGLIA.
[2017-11-16] MEDS ORDERED: Iohexol 350* (CONTRAST) 500 ML MDV IV ONE (13:51)
--- NOTE | 2017-11-16 14:25 | RAD ---
HISTORY: aphasia COMPARISONS: Head CT dated November 16, 2012, carotid ultrasound dated March 07, 2017 TECHNIQUE: Multiple contiguous axial CT scans were obtained of the head and neck after the administration of nonionic intravenous contrast timed to the systemic arterial phase of contrast enhancement. Coronal and sagittal multiplanar reformations are submitted for review. Multiple 3-D maximum intensity projection reconstructions are also submitted for review. FINDINGS: CTA NECK: AORTIC ARCH: There is calcific atherosclerotic disease of the aortic arch, without ostial or proximal stenosis of the cephalic great vessels. There is a normal three-vessel branching pattern. RIGHT VERTEBRAL ARTERY: The right vertebral artery is patent along its course, without stenosis. LEFT VERTEBRAL ARTERY: The left vertebral artery is patent along its course, without stenosis. DOMINANCE: The vertebral arteries are codominant. RIGHT COMMON CAROTID ARTERY: The right common carotid artery is patent. The right carotid bifurcation occurs at C4-C5 RIGHT INTERNAL CAROTID ARTERY: There is atheromatous disease of the right carotid bifurcation, without right internal carotid artery stenosis by NASCET criteria. RIGHT EXTERNAL CAROTID ARTERY: The right external carotid artery is unremarkable. LEFT COMMON CAROTID ARTERY: The left common carotid artery is patent. The left carotid bifurcation occurs at C4-C5 LEFT INTERNAL CAROTID ARTERY: There is atheromatous disease of the left carotid bifurcation, without left internal carotid artery stenosis by NASCET criteria. LEFT EXTERNAL CAROTID ARTERY: The left external carotid artery is unremarkable. VENOUS CIRCULATION: The venous system is unremarkable. SALIVARY GLANDS: The parotid glands, submandibular glands, sublingual glands are normal. NASAL CAVITY/NASOPHARYNX: The nasal cavity and nasopharynx are normal. ORAL CAVITY/OROPHARYNX: The oral cavity is obscured by streak artifact from dental amalgam. The visualized oral cavity and oropharynx are unremarkable. LARYNGEAL APPARATUS/HYPOPHARYNX: The laryngeal apparatus and hypopharynx are normal. UPPER AIRWAY/UPPER ESOPHAGUS: The visualized upper airway and esophagus are normal. LUNG APICES: The lung apices are clear. THYROID GLAND: The thyroid gland is normal. LYMPH NODES: There is no lymphadenopathy by size criteria. BONES AND SOFT TISSUES: No bone or soft tissue abnormalities are noted. CTA HEAD: INTRACRANIAL CIRCULATION: There is no aneurysm, vascular malformation, occlusion, or stenosis of the visualized intracranial circulation. The anterior communicating artery complex is clear. Bilateral posterior communicating arteries are identified. VENOUS CIRCULATION: The venous system is unremarkable. PERFUSION: There is no obvious parenchymal perfusion deficit. HEMORRHAGE/INFARCT: There is no hemorrhage or acute infarct. MASSES/SHIFT: There is no mass or shift. EXTRA-AXIAL SPACES: There are no extra-axial fluid collections. SULCI AND VENTRICLES: The sulci and ventricles are normal in size and position for the patient's stated age. CEREBRUM: There is hypoattenuation of the periventricular and subcortical white matter. Again noted is an age-indeterminate lacunar infarct of the left basal ganglia.. BRAINSTEM: There are no focal parenchymal abnormalities. CEREBELLUM: There are no focal parenchymal abnormalities. PARANASAL SINUSES: The paranasal sinuses are clear. ORBITS: The orbits are unremarkable. BONES AND SOFT TISSUE: Degenerative changes are noted. OTHER: There is no abnormal enhancement. IMPRESSION: 1. ATHEROSCLEROSIS. 2. NO INTERNAL CAROTID ARTERY STENOSIS BY NASCET CRITERIA. 3. NO ANEURYSM, VASCULAR MALFORMATION, OCCLUSION, OR STENOSIS OF THE VISUALIZED INTRACRANIAL CIRCULATION. CPT II Codes: 3100F
[2017-11-16 16:18] VITALS: BP 144/80
== END 2017-11-16 16:17 | disposition home or self-care (01) ==
LOC: ED 11:22
DX: I63.9 Cerebral infarction, unspecified (principal); R47.81 Slurred speech; R29.810 Facial weakness; I44.0 Atrioventricular block, first degree; Z86.73 Personal history of transient ischemic attack (TIA), and cerebral infarction without residual deficits; Z88.2 Allergy status to sulfonamides
CPT/HCPCS: 36415; 70450; 70496; 70498; 80053; 81003; 83605; 84484; 85025; 85610; 93005; 99282; Q9967

== ENCOUNTER → 2017-11-18 12:10 | Emergency (ER) | payer MEDICARE, BC ==
[2017-11-18 12:26] VITALS: BP 138/75
== END | disposition left against medical advice (07) ==
LOC: ED 12:10
DX: R42 Dizziness and giddiness (principal); Z53.21 Procedure and treatment not carried out due to patient leaving prior to being seen by health care provider

== ENCOUNTER 2017-11-21 18:35 | Emergency (ER) | payer BC, MEDICARE ==
--- NOTE | 2017-11-21 19:10 | ED ---
Neurological HPI - HPI Summary HPI Summary: 77 y/o male presents to the ED c/o difficulties in memory, coordination and speech, worsening in the past couple of weeks. Pt c/o general neurological deficits described as a deficit in "thought processing". Sent by MRI after MRI today showed signs of new onset stroke. No change in gait. Pt states he dropped a couple of glasses over the past week. Pt states he is not typically clumsy but has become increasingly so in the past month. Pt seen in the ED on 11/16/17 for similar symptoms, r/o stroke. Pt was not admitted at the time. Denies MARTINES. Sx not aggravated or alleviated by anything. - History of Current Complaint Chief Complaint: EDNeurologicalDeficit Stated Complaint: SLURRED SPEECH/SENT BY MRI Hx Obtained From: Patient Onset/Duration: Started weeks ago, Still Present Timing: Intermittent Episodes Lasting: Neurological Deficit Location: Generalized Pain Intensity: 0 Character: Other: - difficulty in memory, speech and coordination Aggravating: Nothing Alleviating: Nothing Associated Signs and Symptoms: Negative: Unsteady Gait, Headache - Allergy/Home Medications Allergies/Adverse Reactions: Allergies Allergy/AdvReac Type Severity Reaction Status Date / Time Sulfa (Sulfonamide Allergy "FLU LIKE Verified 11/21/17 18:43 Antibiotics) SYSTEM" LACTOSE INTOLERENCE Allergy STOMACH Uncoded 11/21/17 18:43 PMH/Surg Hx/FS Hx/Imm Hx Previously Healthy: No Endocrine/Hematology History: Reports: Hx Thyroid Disease Denies: Hx Diabetes Cardiovascular History: Reports: Hx Hypercholesterolemia Denies: Hx Hypertension, Hx Pacemaker/ICD Respiratory History: Denies: Hx Asthma, Hx Chronic Obstructive Pulmonary Disease (COPD) GI History: Reports: Hx Gastroesophageal Reflux Disease, Hx Hiatal Hernia, Other GI Disorders - diarrhea/constipation lactose intolerant Denies: Hx Ulcer History: Reports: Other Problems/Disorders - prostatectomy Denies: Hx Renal Disease Musculoskeletal History: Reports: Hx Back Problems - stenosis Denies: Hx Rheumatoid Arthritis, Hx Osteoporosis Sensory History: Reports: Hx Contacts or Glasses - reading glasses Denies: Hx Hearing Aid Opthamlomology History: Reports: Hx Contacts or Glasses - reading glasses Neurological History: Reports: Other Neuro Impairments/Disorders - Neuropathy of feet and lower legs. 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 LT HEEL SPURS,. TONSILS,. PROSTATECTOMY,. APRIL FUNDOPLICATION,. LASIK ON EYES,. appendix 06/2016;. 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, skin leasions Denies: Hx Hepatitis, Hx of Known/Suspected MRSA, Hx Shingles, Hx Tuberculosis, Hx Known/Suspected VRE, Hx Known/Suspected VRSA, History Other Infectious Disease, Traveled Outside the [place] in Last 30 Days - Family History Known Family History: Positive: None Negative: Cardiac Disease, Hypertension, Diabetes - Social History Alcohol Use: Occasionally Alcohol Amount: 3 OUNCES WINE DAILY Substance Use Type: Reports: None Smoking Status (MU): Never Smoked Tobacco Have You Smoked in the Last Year: No Review of Systems Constitutional: Negative Eyes: Negative ENT: Negative Cardiovascular: Negative Respiratory: Negative Gastrointestinal: Negative Genitourinary: Negative Musculoskeletal: Negative Skin: Negative Neurological: Other - difficulty in memory, speech and coordination Negative: Headache Psychological: Normal All Other Systems Reviewed And Are Negative: No Physical Exam - Summary Physical Exam Summary: Appearance: Alert, conversive, nontoxic appearing Skin: Warm, dry, no mottling, no rashes, no contusions HEENT: EOMI, PERRL, moist mucous membranes Neck: No masses on the neck, supple Respiratory: Clear to auscultation, breath sounds present, no rales, no rhonchi , no wheezes Cardiovascular: RRR, pulses are symmetrical in both lower and upper extremities Abdomen: Soft, non-tender Bowel Sounds: Present Musculoskeletal: No CVA tenderness, no obvious deformity, moving all extremities in a grossly normal manner Neurological: A&Ox3, CN II-XII Intact, moving all extremities symmetrically Psychiatric: Normal affect and mood Triage Information Reviewed: Yes Vital Signs On Initial Exam: Initial Vitals Temp Pulse Resp BP Pulse Ox 98.6 F 81 18 151/70 100 11/21/17 18:39 11/21/17 18:39 11/21/17 18:39 11/21/17 18:39 11/21/17 18:39 Vital Signs Reviewed: Yes Diagnostics - Vital Signs Vital Signs Temp Pulse Resp BP Pulse Ox 11/21/17 18:39 98.6 F 81 18 151/70 100 - Laboratory Result Diagrams: 11/21/17 19:35 11/21/17 19:35 Lab Statement: Any lab studies that have been ordered have been reviewed, and results considered in the medical decision making process. - Radiology CXR Xray Interpretation: No Acute Changes - No PNA Radiology Interpretation Completed By: ED Physician - Additional Comments Diagnostic Additional Comments: 1 EKG - SR @ 73 BPM. Normal axis, normal QRS, QTC. Normal ST T wave. Re-Evaluation - Re-Evaluation 1 Re-Evaluation Time: 20:25 Comment: Discuss plan of care, plan to d/c. Pt walked around the entire ED Course/Dx - Course Assessment/Plan: 77 y/o male sent from MRI, MRI showed signs of new onset mini- stroke. Pt has had trouble with memory ,speech and coordination worsening over the past few weeks. Pt had negative Brain CT and Head/Neck CTA on 11/16/17 in the ED. Discussed the case with Dr. Burton, who recommends we give dual anti- platelets - Plavix 75 mg QID x30 days, ASA [address] Burton requests swallow study document, start cholestorol meds, BP meds start and PCP f/u. CXR shows no PNA. Pt walked around the entire ED on re-ev. Pt wants to go home. EKG normal. Pt will be d/c home f/u PCP Saturday, call [facility] for appointment. - Diagnoses Provider Diagnoses: Stroke - Physician Notifications Discussed Care Of Patient With: Tre Burton Time Discussed With Above Provider: 19:41 Discharge - Sign-Out/Discharge Documenting (check all that apply): Patient Departure - Discharge Plan Condition: Stable Disposition: HOME Referrals: Max Newsome MD [Primary Care Provider] - - Attestation Statements Document Initiated by Scribe: Yes Documenting Scribe: Antoni Roberts Provider For Whom Scribe is Documenting (Include Credential): Marika Gamble MD Scribe Attestation: Antoni Tucker, scribed for Marika Gamble MD on 11/21/17 at 6.
[2017-11-21 19:45] LABS: ABS Basophils 0 10^3/ul (0-0.2); ABS Eosinophils 0.2 10^3/ul (0-0.6); ABS Lymphocytes 1.5 10^3/ul (1.0-4.8); ABS Monocytes 0.6 10^3/ul (0-0.8); ABS Neutrophils 5.4 10^3/ul (1.5-7.7); ABS Nucleated RBC 0 10^3/ul; Eosinophil % 2.5 % (0-6); Hematocrit 41 % (42-52); Hemoglobin 14.1 g/dl (14.0-18.0); Lymphocyte % 18.9 % (25-47); Mean Corpuscular HGB Conc 34 g/dl (31-36); Mean Corpuscular Hemoglobin 32 pg (27-31); Mean Corpuscular Volume 93 fL (80-94); Mean Platelet Volume 8.2 um3 (7.4-10.4); Nucleated Red Blood Cells % 0.1; Platelet Count 213 10^3/ul (150-450); Red Blood Count 4.43 10^6/ul (4.00-5.40); Red Cell Distribution Width 14 % (10.5-15); White Blood Count 7.7 10^3/ul (3.5-10.8)
[2017-11-21 19:54] LABS: INR 0.88 (0.77-1.02)
[2017-11-21 20:00] LABS: EGFR Non-African American 78.6 (>60)
[2017-11-21] MEDS ORDERED: Clopidogrel TAB* 75 MG PO ONE (20:30)
[2017-11-21 21:55] VITALS: BP 131/81
--- NOTE | 2017-11-22 08:03 | RAD ---
HISTORY: stroke COMPARISONS: December 08, 2010 VIEWS: 1: frontal portable view of the chest at 8:04 PM FINDINGS: LINES AND TUBES: None. CARDIOMEDIASTINAL SILHOUETTE: The cardiomediastinal silhouette is normal for portable technique. PLEURA: The costophrenic angles are sharp. No pleural abnormalities are noted. LUNG PARENCHYMA: The lungs are clear. ABDOMEN: The upper abdomen is clear. There is no subphrenic gas. BONES AND SOFT TISSUES: No bone or soft tissue abnormalities are noted. IMPRESSION: NO ACTIVE CARDIOPULMONARY DISEASE. R0
== END 2017-11-21 21:20 | disposition home or self-care (01) ==
LOC: ED 18:35
DX: I63.9 Cerebral infarction, unspecified (principal); G45.9 Transient cerebral ischemic attack, unspecified; I67.82 Cerebral ischemia; R51 Headache
CPT/HCPCS: 36415; 71045; 80053; 83735; 84443; 85025; 85610; 85730; 93005; 99283; A9270-GY

== ENCOUNTER 2017-12-02 12:54 | Inpatient (IN) | payer BC, MEDICARE ==
--- OUTSIDE RECORDS SUMMARY | 2017-12-02 13:01 | XMS REPORT | Continuity of Care Document ---
:1940 External Reference #:[id number] Author Name Pedrito Ahmadi M.D. Address 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 Max Newsome MD Primary Care Physician Unavailable Payers Type Date Identification Numbers Payment Provider Subscriber Policy Number: [id number] [place] [employer] [employer] PayID: [id number] [address] [place] [address] Policy Number: [id number] [employer] PayID: [id number] [address] [place] [address] Advance Directives Description No Information Available Problems Description No Information Family History Date Family Member(s) Problem(s) Comments Father due to Liver Cancer () Father due to Stomach Cancer () Mother due to Stroke () Social History Type Date Description Comments Sex Unknown ETOH Use Occasionally consumes wine Tobacco Use Start: Unknown Patient has never smoked Smoking Status Reviewed: 11/29/17 Patient has never smoked Allergies, Adverse Reactions, Alerts Date Description Reaction Status Severity Comments 10/17/2017 Sulfa Antibiotics Active Medications Medication Date Status Form Strength Qnty SIG Indications Ordering Provider Gabapentin Active Capsules 100mg Unknown 000 Levothyroxine Active Tablets 75mcg take 1 Unknown Sodium 000 tablet by mouth once daily Immunizations Description No Information Available Vital Signs Date Vital Result Comment 10/31/2017 2:25pm Intraocular Pressure Right Eye 11 mmHg Intraocular Pressure Left Eye 11 mmHg 10/17/2017 2:59pm Intraocular Pressure Right Eye 11 mmHg Intraocular Pressure Left Eye 11 mmHg Results Description No Information Available Procedures Date Code Description Status 10/31/2017 40894 Ophthalmic Biometry By Partial Coherence Interferometry Completed W/Intra 10/31/2017 55906 Eye Exam Est Intermediate Completed 10/17/2017 43532 Fundus Photography W/Interpretation & Report Completed 10/17/2017 61839 Eye Exam New Comprehensive Completed Encounters Description No Information Available Plan of Treatment Future Appointment(s):01/14/2018 7:45 am - Pedrito Ahmadi M.D. at Main [id number]/07/2018 7:45 am - Pedrito Ahmadi M.D. at Main Office
--- OUTSIDE RECORDS SUMMARY | 2017-12-02 13:01 | XMS REPORT | Continuity of Care Document ---
:1940 External Reference #:[id number] Author Name Pedrito Ahmadi M.D. Address 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 Max Newsome MD Primary Care Physician Unavailable Payers Type Date Identification Numbers Payment Provider Subscriber Policy Number: [id number] [employer] [place] [employer] PayID: [id number] [address] [place] [address] Policy Number: [id number] [employer] PayID: [id number] [address] [place] [address] Advance Directives Description No Information Available Problems [...] Available Vital Signs Date Vital Result Comment 11/29/2017 11:07am Intraocular Pressure Right Eye 11 mmHg Intraocular Pressure Left Eye 11 mmHg 10/31/2017 2:25pm Intraocular Pressure Right Eye 11 mmHg Intraocular Pressure Left Eye 11 mmHg 10/17/2017 2:59pm Intraocular Pressure Right Eye 11 mmHg Intraocular Pressure Left Eye 11 mmHg Results Description No Information Available Procedures Date Code Description Status 11/29/2017 23262 Oct Retina Completed 11/29/2017 79336 Visual Field Exam Extended, Unilateral Or Bilateral Completed 11/29/2017 29144 Eye Exam Est Intermediate Completed 10/31/2017 09240 Ophthalmic Biometry By Partial Coherence Interferometry Completed W/Intra 10/31/2017 38111 Eye Exam Est Intermediate Completed 10/17/2017 56725 Fundus Photography W/Interpretation & Report Completed 10/17/2017 11625 Eye Exam New Comprehensive Completed Encounters Description No Information Available Plan of Treatment Future Appointment(s):01/14/2018 7:45 am - Pedrito Ahmadi M.D. at Main [id number]/07/2018 7:45 am - Pedrito Ahmadi M.D. at Main [id number]/29/2017 - Pedrito Ahmadi M.D.H25.13 Age-related nuclear cataract, [id number] Nonexudative age-related macular degeneration, bilateral, early dry [id number] Senile ectropion of left lower [id number] Cerebral infarction, unspecifiedFollow up:to OR in March
--- OUTSIDE RECORDS SUMMARY | 2017-12-02 13:03 | XMS REPORT ---
:1940 External Reference #:[id number] Author Organization [facility] Address [address] [place] [address] Phone [phone] Care Team Providers Name Role Phone Max Newsome MD Primary Care Physician Unavailable Payers Type Date Identification Numbers Payment Provider Subscriber Medicare Primary Effective: Policy Number: Medicare Frandy Adames 2004 [id number] PayID: [id number] [address] [place] [address] Medigap Part B Policy Number: [id number] [facility] Jhoan Adames Group Number: [id number] [address] PayID: [id number] [place] [address] Health Maintenance Effective: Policy Number: BS [facility] Frandy Blunt [place] [place] 03/20/2007 [id number] Expires: 04/01/2008 PayID: [id number] [address] [address] [place] [address] Problems Date Description Provider Status Onset: 11/02/2011 Electrocardiogram abnormal Roopa Davis M.D. Onset: 11/02/2011 Mitral valve disorder Roopa Davis M.D. Onset: 11/02/2011 Tricuspid valve disorder, Margie Tsang Active non-rheumatic MCarrol Onset: 11/02/2011 Mixed hyperlipidemia Roopa Davis M.D. Family History Date Family Member(s) Problem(s) Comments General heart trouble General diabetes : (age 61 Years) Father due to Cancer stomach : (age 80 Years) Mother due to Stroke angina Social History Type Date Description Comments Marital Status Lives With Occupation Retired From [employer] Cigarette Use Never Smoked Cigarettes ETOH Use Consumes 1 glass of wine per week Smoking Patient has never smoked Daily Caffeine Does Not Consume Caffeine Enjoy Exercising Enjoys exercising 3x/week, weights, walking, volleyball Exercise Type/Frequency Exercises regularly Allergies, Adverse Reactions, Alerts Date Description Reaction Status Severity Comments 07/30/2007 Sulfa active 07/30/2007 lactose intolerant active Medications Medication Date Status Form Strength Qnty SIG Indications Ordering Provider Glucosamine-Cho / Active Capsules 500-400 1 po qd Unknown ndroitin 0000 Flaxseed Oil / Active Misc 1000mg 1 day Unknown 0000 Vitamin D / Active 5000Iu 1 qd Unknown 0000 Gabapentin / Active Capsules 100mg 2 at night Unknown 0000 Melatonin / Active Capsules 1mg 1 po qhs Unknown 0000 Aspir-81 00/ Active Tablets DR 81mg 1 by mouth Unknown 0000 every day Voltaren / Active Gel 1% 1tube apply to Unknown 0000 s affected area every pm and prn [place]-3 Fish / Active Capsules 1250mg 1 po qd Unknown Oil 0000 Multivitamin 00/ Active Tablets Adlt 50+ 1 by mouth Unknown Adults 50+ 0000 every day Preservision / Active Capsules Areds 2 take one cap Unknown Areds 2 0000 in the moring and one cap in the evening Levothyroxine / Active Tablets 75mcg 1 by mouth Unknown Sodium 0000 every day Rosuvastatin / Active Tablets 20mg take 1 Unknown Calcium 0000 tablet by mouth once daily Plavix / Active Tablets 75mg 90tab 1 by mouth Ottoniel S. 0000 s every day Megan Prado Lyrica 12/19/ Hx Capsules 50mg 180ca 1 po bid Angelo Baltazar 04/24/ Megan 2014 Multi Vit 04/03/ Hx Tablets 1 po qd Maxinetaybkvng 2010 - S. 10/08/ Trinh Barrow M.D. Tri-Mix 09/15/ Hx Injection prn Qutaybeh Standard 2007 - intercourse S. 09/30/ Trinh Barrow M.D. Zocor 09/15/ Hx Tablets 20mg 90tab 1 PO QHS Qutaybkvng 2007 - s S. 01/07/ ydah 2014 , Megan Centrum Silver 09/15/ Hx Chewtabs 1 PO qd Qutaybeh 2007 - S. 04/03/ ydah 2010 , Megan Aspir-81 09/15/ Hx Tablets DR 81mg 30tab 1 PO qd Qutaybeh 2007 - s S. 09/09/ ydah 2008 , Megan Magnesium 09/15/ Hx tablet 1 po qd Qutaybeh /potassium 2007 - S. 09/09/ hayd2008 , Megan Probiotic 09/15/ Hx Capsules 1 po qd Qutaybeh 2007 - S. 09/09/ yd2008 , Megan Yeast 09/15/ Hx capsules 1 po qd Qutaybeh 2007 - S. 09/09/ 2008 , Megan Neurontin 08/04/ Hx Capsules 100mg 2 po qhs Qutaybeh 2007 - S. 11/01/ 2012 , Megan Neurontin 07/29/ Hx Capsules 100mg 60cap 2 PO tid Qutaybeh 2008 - s S. 2007 Megan Bentyl 07/29/ Hx Tablets 20mg 1 PO tid-qid Qutaybeh 2008 - prn S. 2008 Megan Viagra 07/29/ Hx Tablets 50mg 10tab PO 0.5, 1, 2 Qutaybeh 2008 - s Tab 1H S. 08/04/ 2008 [place] Megan Levitra 07/29/ Hx Tablets 10mg 9tabs qd prn Qutaybeh 2008 - S. yd2007 Megan Zocor 07/29/ Hx Tablets 40mg 90tab 1 PO QHS Qutaybeh 2008 - s S. 09/15/ yd2007 Megan Allergy shots 07/29/ Hx inj Qutaybeh 2007 - S. 09/09/ yd2008 Megan Metamucil 07/29/ Hx powder 100un PO qd Qutaybeh 2008 - its S. 11/01/ Trinh Vela M.D. Fish Oil /00/ Hx capsules 2 caps po Unknown 0000 - daily 2015 Gerald /00/ Hx 1 qhs Unknown 0000 - 2011 Inositol /00/ Hx Tablets 1qd Unknown 0000 - 2010 Simvastatin /00/ Hx Unknown 0000 - 2013 Zocor /00/ Hx Tablets 40mg 1 by mouth Unknown 0000 - every night 09/30/ at bedtime 2015 Yeast Balance /00/ Hx Capsules 1 po bid Unknown Ics 0000 - 2015 Albuterol / Hx Nebulizer (2.5mg/3M 1 vial via Unknown Sulfate 0000 - L) 0.083% nebulizer 4 / times daily 2015 as needed Proair HFA / Hx Aerosol 108(90Bas as needed Unknown 0000 - e) when 09/30/ mcg/Act exercising 2015 Fish Oil 00/ Hx Capsules 1000mg 1 by mouth Unknown 0000 - every day 2015 Simvastatin /00/ Hx Tablets 40mg 1 by mouth Unknown 0000 - every day 2016 Chondroitin 00/ Hx Capsules 400-60-2. every day Unknown Sulfate 0000 - 5mg Complex 2015 Saccharomyces 00/ Hx Solution 72015Obz/ Unknown Cerevisiae 0000 - ML Extract 2015 [place] Thyroid / Hx Tablets 15mg 1 tab by Unknown 0000 - mouth every 2016 Medications Administered in Office Medication Date Status Form Strength Qnty SIG Indications Ordering Provider Depomedrol Administered Injection Dirk Tanya, 40MG Marcela Guzman Celestone 3 Administered Injection Maria D mg and 3mg 014 Megan Cloud Celestone 3 Administered Injection Maria D mg and 3mg 013 Megan Cloud Depomedrol Administered Injection Amaris 80MG Francisca Sales M.D. Vital Signs Date Vital Result Comment 11/27/2017 Height 70 inches 5'10" Weight 175.25 lb Heart Rate 78 /min BP Systolic 104 mmHg BP Diastolic 70 mmHg BMI (Body Mass Index) 25.1 kg/m2 03/18/2017 Height 70 inches 5'10" Weight 175.50 lb with shoes Heart Rate 86 /min BP Systolic Sitting 124 mmHg LA reg cuff BP Diastolic Sitting 70 mmHg LA reg cuff BMI (Body Mass Index) 25.2 kg/m2 Ejection Fraction 55% - 60% echo 10/27/13 07/17/2016 Height 70 inches 5'10" Weight 170.00 lb Heart Rate 76 /min BP Systolic Sitting 112 mmHg BP Diastolic Sitting 70 mmHg Respiratory Rate 17 /min BMI (Body Mass Index) 24.4 kg/m2 07/13/2016 Height 70 inches 5'10" Weight 175.00 lb Heart Rate 76 /min BP Systolic 122 mmHg BP Diastolic 72 mmHg Respiratory Rate 16 /min Body Temperature 98.0 F BMI (Body Mass Index) 25.1 kg/m2 03/28/2016 Height 70 inches 5'10" Weight 177.75 lb with shoes Heart Rate 82 /min BP Systolic Sitting 128 mmHg LA lrg cuff BP Diastolic Sitting 70 mmHg LA lrg cuff BMI (Body Mass Index) 25.5 kg/m2 Ejection Fraction 55% - 60% echo 10/27/13 10/19/2015 Height 70 inches 5'10" Weight 175.00 lb BP Systolic 114 mmHg BP Diastolic 68 mmHg Pain Level 3 BMI (Body Mass Index) 25.1 kg/m2 05/31/2015 Height 70 inches 5'10" Weight 179.12 lb with shoes Heart Rate 80 /min BP Systolic Sitting 108 mmHg LA reg cuff BP Diastolic Sitting 70 mmHg LA reg cuff Respiratory Rate 17 /min BMI (Body Mass Index) 25.7 kg/m2 Ejection Fraction 55-60% date 10/27/13 ECHO 07/27/2014 Height 70 inches 5'10" Weight 177.00 lb Heart Rate 68 /min BP Systolic Sitting 128 mmHg BP Diastolic Sitting 64 mmHg Respiratory Rate 16 /min BMI (Body Mass Index) 25.4 kg/m2 01/07/2014 Height 70 inches 5'10" Weight 179.00 lb Heart Rate 80 /min BP Systolic Sitting 118 mmHg BP Diastolic Sitting 60 mmHg Respiratory Rate 15 /min BMI (Body Mass Index) 25.7 kg/m2 06/09/2013 Height 70 inches 5'10" Weight 175.00 lb BP Systolic 124 mmHg BP Diastolic 87 mmHg BMI (Body Mass Index) 25.1 kg/m2 04/21/2013 Heart Rate 76 /min BP Systolic Sitting 118 mmHg BP Diastolic Sitting 70 mmHg Respiratory Rate 16 /min 07/14/2012 Height 67 inches 5'7" Weight 182.00 lb Heart Rate 80 /min BP Systolic Sitting 122 mmHg BP Diastolic Sitting 80 mmHg Respiratory Rate 16 /min BMI (Body Mass Index) 28.5 kg/m2 11/02/2011 Height 67 inches 5'7" Weight 178.00 lb Heart Rate 80 /min BP Systolic 110 mmHg BP Diastolic 64 mmHg BMI (Body Mass Index) 27.9 kg/m2 04/03/2010 Height 67 inches 5'7" Weight 183.00 lb Heart Rate 69 /min BP Systolic 110 mmHg BP Diastolic 70 mmHg Respiratory Rate 16 /min BMI (Body Mass Index) 28.7 kg/m2 09/09/2008 Height 67 inches 5'7" Weight 183.00 lb Heart Rate 76 /min BP Systolic Sitting 110 mmHg BP Diastolic Sitting 70 mmHg BMI (Body Mass Index) 28.7 kg/m2 09/16/2007 Height 67 inches 5'7" Weight 181.00 lb Heart Rate 80 /min BP Systolic Sitting 110 mmHg BP Diastolic Sitting 70 mmHg Respiratory Rate 16 /min BMI (Body Mass Index) 28.3 kg/m2 08/05/2007 Height 67 inches 5'7" Weight 181.00 lb Heart Rate 81 /min BP Systolic Sitting 110 mmHg left arm, right arm 110/70 BP Diastolic Sitting 70 mmHg left arm, right arm 110/70 BP Systolic Standing 104 mmHg BP Diastolic Standing 70 mmHg BMI (Body Mass Index) 28.3 kg/m2 Results Test Date Test Result H/L Range Note Laboratory test 07/05/2016 Surgical Pathology SEE RESULT BELOW 1 finding Laboratory test 04/21/2013 Lyme Disease Positive Negative 2 finding Serology Lyme Western Blot 04/21/2013 Lyme Disease IgG Ab Positive Negative WB Lyme Disease IgG Bands Present See Comment kDa 3 Lyme Disease IgM Ab WB Positive Negative Lyme Disease IgM Bands Present p41, p23, kDa Lyme Disease Interpretation See Comment 4 1 SEE RESULT BELOW Name: Frandy ADAMES : [address]: Neri Leavitt MD Acct: [id number] Unit: [id number] AGE: 76 Location: OR Re07/05/16 SEX: M Status: REG [facility] [place] [facility] SPEC: [id number] MARYAM: 07/05/16- SUBM DR: Neri Leavitt MD REQ: [id number] RECD: 07/05/16 STATUS: SOUT _ ORDERED: LEVEL III FINAL DIAGNOSIS Vermiform appendix, appendectomy: -- Acute suppurative appendicitis with periappendicitis. PRE-OPERATIVE DIAGNOSIS Acute appendicitis GROSS DESCRIPTION The specimen is received in formalin labeled, Appendix, and consists of a 10.2 cm appendix with abundant attached mesoappendix. The external diameter ranges from 0.6 cm in the distal tip to 1.5 cm in the proximal to mid specimen. There are a few focal fibromembranous adhesions more predominant in the central specimen adhering the appendix to the mesoappendix. The remaining serosa is focally shaggy mottled baker-perkins with moderate baker-white fibropurulent exudate. The lumen measures up to 0.8 cm and contains hemorrhagic debris. The central mucosa is necrotic and hemorrhagic dusky red-brown and the wall thickness averages 0.1 cm. The remaining mucosa is glistening baker-white. Received separately in the same container is a 5.3 by up to 1.8 x 0.8 cm yellow irregular focally purulent portion of fat. Dbas sections, one cassette. Signed (signature on file) Tavares Vieyra MD 1202 END OF REPORT * ML=Testing performed at Main Lab DEPARTMENT OF PATHOLOGY, [address] [place] [address] Tavares Vieyra M.D. Director [facility] # [id number] 2 Not diagnostic. Supplemental testing ordered by reflex. Test Performed by: [place] [id number] [place]: Markie Brunson III, M.D. 3 RESULT: p93, p66, p58, p41, p28, p23, p18, 4 Consistent with active or previous infection for B. burgdorferi. IgM blot criteria is of diagnostic utility only during the first 4 weeks of early Lyme disease. CDC criteria require >=5 bands for IgG or >=2 bands for IgM for the Immunoblot to be considered positive. Bands (e.g.,p41) may be detected in patients without Lyme disease, and patterns not meeting the CDC criteria should be interpreted with caution. Immunoblot should be ordered only on specimens that are positive or equivocal by a FDA-licensed Lyme disease antibody screening test (e.g., EIA). Test Performed by: [address] [address] [place]: Markie Brunson III, M.D. Procedures Date CPT Code Description Status Comment 03/18/2017 62527 EKG Tracing & Interpretation Completed 07/05/2016 20494 Laparoscopy, Surgical, Completed Appendectomy 06/25/2016 Diabetic Retinal Eye Exam Completed Document: 06/25/16 - Consult Ophthalmology-[place] 03/28/2016 87680 EKG Tracing & Interpretation Completed 10/19/2015 07822 Inject/Drain Joint/Bursa Major Completed W/O US 05/31/2015 72028 EKG Tracing & Interpretation Completed 01/07/2014 84181 EKG Tracing & Interpretation Completed 11/03/2013 34301 Holter Monitor Review (24 hr) Completed review & interp only 10/27/2013 36129 ECHO Transthorasic Realtime 2D Completed W Doppler & Color Flow Hosp 10/27/2013 98786 EKG, Interpretation Only Completed 06/09/201321905 Injection Single Tendon Completed Origin/Insertion 02/10/201393156 Inject/Drain Joint/Bursa Major Completed W/O US 02/10/201356833 Injection Single Tendon Completed Origin/Insertion 11/12/2012 08168 Rad Exam; Foot Comp Completed 07/14/2012 44649 EKG Tracing & Interpretation Completed 06/19/201277444 Injection Single Tendon Completed Origin/Insertion 06/19/2012 69416 Rad Exam; Elbow, Comp Completed 06/11/2012 75083 ECHO Transthoracic, Real-Time Completed 2D With Doppler And Color Flow 11/02/2011 12821 EKG Tracing & Interpretation Completed 11/01/2011 91116 ECHO Transthoracic, Real-Time Completed 2D With Doppler And Color Flow 12/08/2010 68681 Treadmill Interp/Report Only Completed 12/08/2010 30144 Stress Test Supervsn W/Out I/R Completed 12/08/2010 91801 EKG, Interpretation Only Completed 04/03/2010 88072 EKG Tracing & Interpretation Completed 03/07/2010 79263 ECHO Transthoracic, Real-Time Completed 2D With Doppler And Color Flow 09/09/2008 48526 EKG Tracing & Interpretation Completed 09/06/2008 65466 ECHO Transthoracic, Real-Time Completed 2D With Doppler And Color Flow 09/12/2007 72506 Holter Monitor Completed 09/12/2007 93548 Holter Monitor Completed 09/04/2007 84490 Color Doppler Completed 09/04/2007 40441 Pulse Doppler & Continuous Wave Completed 09/04/2007 90692 Pulse Doppler & Continuous Wave Completed 09/04/2007 07832 Echocardiogram Completed 09/02/2007 50196 ECHO/Stress Completed 09/02/2007 39292 ECHO/Stress Completed 09/02/2007 22638 Stress Test Completed 09/02/2007 58584 Stress Test Completed 09/02/2007 38621 Stress Test Completed 08/05/2007 85009 EKG Tracing & Interpretation Completed 08/05/2007 53815 EKG Tracing & Interpretation Completed Encounters Type Date Location Provider CPT E/M Dx Office Visit 03/18/2017 4:00p [facility] Margie Tsang, 48188 E78.4 Megan R94.31 Office Visit 07/17/2016 10:45a [facility] Ottoniel Prado, 63501 G60.8 Services Of Hatchery 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 Office Visit 07/05/2016 7:00a [facility] NeymarEnedelia Sanders, 99236 K35.80 Of [facility] Office Visit 03/28/2016 3:20p [facility] Qutaybeh S. 08713 E78.4 Megan Tsang R94.31 Office Visit 10/19/2015 1:30p [facility] Tony Martínez M.D. 11098 M76.32 C.MJose Office Visit 05/31/2015 1:20p [facility] Qutaybeh S. 53935 E78.4 Megan Tsang I34.0 R94.31 Office Visit 07/27/2014 2:45p [facility] Ottoniel Prado, 73447 356.8 Services Of [facility] M.D. Office Visit 01/07/2014 10:20a [facility] Qutaybeh S. 37500 272.4 Megan Tsang 435.9 794.31 458.9 Office Visit 10/27/2013 1:59p [facility], Kellie Quiros, 36918 435.9 Hospitalists Megan 272.4 355.9 Office Visit 10/26/2013 1:58p [facility], Betzaida Mar, 69944 435.9 Hospitalists N.PEnedelia 272.4 355.9 Office Visit 10/26/2013 9:31a [facility] Ciera Farfan M.D. 37307 435.9 Services Of [facility] Office Visit 06/09/2013 10:00a [facility] Maria D 06732 726.32 Em Cloud M.D. Office Visit 04/21/2013 3:00p [facility] Ottoniel Prado, 88902 356.8 Services Of Hatchery 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 Office Visit 02/10/2013 10:00a [facility] Maria D 92275 726.31 Em Cloud M.D. 726.32 Office Visit 12/19/2012 9:30a [facility] Angelo Baltazar, 64640 727.06 Em Guzman Office Visit 12/19/2012 9:00a [facility] Maria D 19022 726.31 Em Cloud M.D. Office Visit 11/12/2012 1:00p [facility] Angelo Baltazar, 84241 727.06 Em Guzman Office Visit 07/14/2012 2:00p [facility] Qutaybeh S. 28546 424.0 Megan Tsang 424.2 272.2 Office Visit 06/19/2012 11:30a [facility] Amaris Sales 65170 726.31 Of Em Guzman Office Visit 11/02/2011 10:00a [facility] Qutaybeh S. 39838 794.31 Megan Tsang 424.0 424.2 272.2 Office Visit 12/08/2010 12:30p [facility] Qutaybeh S. Maghaydah, 79526 794.31 M.DEnedelia 786.50 424.0 424.2 272.4 Office Visit 04/03/2010 10:20a [facility] Qutaybeh S. Maghaydah, 27316 424.0 M.DEnedelia 424.2 272.4 Office Visit 09/09/2008 2:40p [facility] Qutaybeh S. Maghaydah, 95007 424.0 M.D. 272.4 Office Visit 09/16/2007 11:10a [facility] Qutaybeh S. Maghaydah, 61656 272.4 M.D. 786.05 794.31 424.0 424.2 Office Visit 08/05/2007 12:40p [facility] Qutaybeh S. Maghaydah, 73501 272.4 M.D. 786.05 794.31 Plan of Care Future Appointment(s):01/07/2018 11:30 am - Ottoniel Prado M.D. at [facility]11/27/2017 - Ottoniel Prado M.D.G60.8 Other hereditary and idiopathic pnqqotvnnwhkO06.4 Other olnfnqsclxolseA56.02 Occlusion and stenosis of left middle cerebral arteryFollow up:Dr. Newsome last office note 1-2 monthsRecommendations:take aspirin and Plavix until then stop aspirin and continue PzxhwkJ52.320 Aphasia following cerebral infarctionNew Therapy:Speech TherapyFollow up:No surgery for three months from your stroke unless it is urgent
--- NOTE | 2017-12-02 13:23 | ED ---
Dizziness - HPI Summary HPI Summary: This patient is a 77 year old M BIBA to [facility] accompanied by his with a chief complaint of sudden hearing loss in left ear and vertigo since 08:30. Patient reports that hearing out of his left year sounds muffled and tinny. The patient rates the pain 0/10 in severity. Symptoms aggravated by movement. Symptoms alleviated by nothing. Patient reports nausea. Patient notes he has been able to ambulate well. Patient took Meclizine x2 at 11:30 but it did not alleviate his symptoms. His bottle of meclizine is estimated to be between 5 and 15 years old. Patient notes his nausea was resolved after he was given Zofran by EMS. Patient was seen at [facility] for an ischemic stroke 2 weeks ago on and was discharged with some speech and thought processing deficits. Patient also feels as though his vision has changed since his CVA but his vision test at the eye doctor was negative for any changes. Patient reports hx of vertigo but has not had any symptoms in many years. Patient takes Plavix. - History Of Current Complaint Chief Complaint: EDDizziness Stated Complaint: DIZZINESS Hx Obtained From: Patient Onset/Duration: Still Present Timing: Hours - 5 hours Severity Initially: Mild Severity Currently: Mild Character: Dizzy Aggravating Factor(s): Position Change, Other - movement Alleviating Factor(s): Nothing Associated Signs And Symptoms: Positive: Nausea, Other: - hearing loss in left ear - Allergies/Home Medications Allergies/Adverse Reactions: Allergies Allergy/AdvReac Type Severity Reaction Status Date / Time Sulfa (Sulfonamide Allergy "FLU LIKE Verified 12/02/17 13:23 Antibiotics) SYSTEM" LACTOSE INTOLERENCE Allergy STOMACH Uncoded 12/02/17 13:23 Home Medications: Home Medications Preservision Areds Softgel 1 cap PO BID 12/03/17 [History Confirmed 12/03/17] Rosuvastatin Calcium [Crestor] 20 mg PO BEDTIME 12/03/17 [History Confirmed 07/17] PMH/Surg Hx/FS Hx/Imm Hx Endocrine/Hematology History: Reports: Hx Thyroid Disease Denies: Hx Diabetes Cardiovascular History: Reports: Hx Hypercholesterolemia Denies: Hx Hypertension, Hx Pacemaker/ICD Respiratory History: Denies: Hx Asthma, Hx Chronic Obstructive Pulmonary Disease (COPD) GI History: Reports: Hx Gastroesophageal Reflux Disease, Hx Hiatal Hernia, Other GI Disorders - diarrhea/constipation lactose intolerant Denies: Hx Ulcer History: Reports: Other Problems/Disorders - prostatectomy Denies: Hx Renal Disease Musculoskeletal History: Reports: Hx Back Problems - stenosis Denies: Hx Rheumatoid Arthritis, Hx Osteoporosis Sensory History: Reports: Hx Contacts or Glasses - reading glasses Denies: Hx Hearing Aid Opthamlomology History: Reports: Hx Contacts or Glasses - reading glasses Neurological History: Reports: Hx CVA - ischemic stroke 10/2017, Other Neuro Impairments/Disorders - Neuropathy of feet and lower legs. PAIN CLINIC PT. Vertigo Psychiatric History: Denies: Hx Panic Disorder - Cancer History Cancer Type, Location and Year: prostatectomy due to CA. SKIN CARCINOMA Hx Chemotherapy: No Hx Radiation Therapy: No - Surgical History Surgery Procedure, Year, and Place: RT KNEE SCOPE,. LT HEEL SPURS,. TONSILS,. PROSTATECTOMY,. APRIL FUNDOPLICATION,. LASIK ON EYES,. appendix 06/2016;. 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, skin leasions Denies: Hx Hepatitis, Hx of Known/Suspected MRSA, Hx Shingles, Hx Tuberculosis, Hx Known/Suspected VRE, Hx Known/Suspected VRSA, History Other Infectious Disease, Traveled Outside the [place] in Last 30 Days - Family History Known Family History: Positive: Other - meniere's disease (mother) Negative: Cardiac Disease, Hypertension, Diabetes - Social History Alcohol Use: Occasionally Alcohol Amount: 3 OUNCES WINE DAILY Substance Use Type: Reports: None Smoking Status (MU): Never Smoked Tobacco Have You Smoked in the Last Year: No Review of Systems Negative: Fever, Chills Negative: Erythema Positive: Other - hearing loss in left ears. Negative: Sore Throat Negative: Chest Pain Negative: Shortness Of Breath, Cough Positive: Nausea. Negative: Abdominal Pain, Vomiting Negative: dysuria, hematuria Negative: Myalgia, Edema Negative: Rash Neurological: Other - positive dizziness All Other Systems Reviewed And Are Negative: Yes Physical Exam - Summary Physical Exam Summary: Constitutional: Well-developed, Well-nourished, Alert. (-) Distressed Skin: Warm, Dry HENT: Normocephalic; Atraumatic Eyes: Conjunctiva normal Neck: Musculoskeletal ROM normal neck. (-) JVD, (-) Stridor, (-) Tracheal deviation Cardio: Rhythm regular, rate normal, Heart sounds normal; Intact distal pulses; The pedal pulses are 2+ and symmetric. Radial pulses are 2+ and symmetric. (-) Murmur Pulmonary/Chest wall: Effort normal. (-) Respiratory distress, (-) Wheezes, (-) Rales Abd: Soft. (-) Tenderness, (-) Distension, (-) Guarding, (-) Rebound Musculoskeletal: (-) Edema Lymph: (-) Cervical adenopathy Neuro: Alert, Oriented x3, Strength normal, Cranial nerves II-XII are grossly intact. (-) Dysmetria, (-) Nystagmus, (-) Ataxia by finger to nose testing, (-) Sensory deficit. Positive Darien-Hallpike to the left Psych: Mood and affect Normal Triage Information Reviewed: Yes Vital Signs On Initial Exam: Initial Vitals Temp Pulse Resp BP Pulse Ox 97.9 F 66 17 141/76 94 12/02/17 13:02 12/02/17 13:02 12/02/17 13:02 12/02/17 13:02 12/02/17 13:02 Vital Signs Reviewed: Yes Diagnostics - Vital Signs Vital Signs Temp Pulse Resp BP Pulse Ox 12/02/17 13:02 97.9 F 66 17 141/76 94 - Laboratory Result Diagrams: 12/04/17 06:32 12/04/17 06:32 Lab Statement: Any lab studies that have been ordered have been reviewed, and results considered in the medical decision making process. Dizzy Course/Dx - Course Course Of Treatment: This patient is a 77 year old M with hx of vertigo reporting sudden hearing loss in left ear and dizziness since 08:30. Patient was seen at [facility] for an ischemic stroke 2 weeks ago on 11/21/17 and was discharged with some speech and thought processing deficits.Pertinent family history of MENIERES disease in his mother. Test results with no significant abnormalities. In the ED course the patient was given IV fluids, Meclizine, Reglan, and Zofran. We discussed patient care with Dr. Kelly and they agreed to admit the patient. Dx refractory vomiting and peripheral vertigo. Patient will be admitted to [facility]. The patient is agreeable with this plan. Given the sudden and severe onset, aggravation with movement, hearing loss, and a highly positive meet hallpike test to the left, BPPV/Meniere's is the most plausable diagnosis. There were no symptoms of central vertigo. The patient has had a plethora of imaging this weekincluding MRI and CTA. I will defer any further imaging to the admitting service. TPA would be contraindicated given the patient's recent stroke, in the very unlikely chance that this was central vertigo. In the ED the patient did have resolution of vertigo with medications , however when he went to stand up or move to ambulate, he immediately began vomiting and had return of significant vertigo. - Diagnoses Provider Diagnoses: Peripheral vertigo, Refractory nausea and vomiting - Provider Notifications Discussed Care Of Patient With: Carlos Alberto Kelly Time Discussed With Above Provider: 18:14 Instructed by Provider To: Admit As Inpatient Discharge - Sign-Out/Discharge Documenting (check all that apply): Patient Departure - Discharge Plan Condition: Stable Disposition: ADMITTED TO [facility] - Billing Disposition and Condition Condition: STABLE Disposition: Admitted to [facility] - Attestation Statements Document Initiated by Scribe: Yes Documenting Scribe: Dory Ferreira Provider For Whom Scribe is Documenting (Include Credential): Rey Hussein MD Scribe Attestation: IDory, scribed for Rey Hussein MD on 12/07/17 at 1222. Scribe Documentation Reviewed: Yes Provider Attestation: The documentation as recorded by the scribeDory accurately reflects the service I personally performed and the decisions made by me, Rey Hussein MD
[2017-12-02] MEDS ORDERED: Meclizine TAB* 12.5 MG PO ONE ×2 (13:48→16:22)
[2017-12-02] MEDS ORDERED: Metoclopramide IV* 5 MG/ML 2 ML VIAL IV SLOW PU ONE (13:48)
[2017-12-02] MEDS ORDERED: NS 0.9% 500 ML* 500 ML IV ONE (13:48)
[2017-12-02] MEDS ORDERED: Ondansetron INJ* 2 MG/ML VIAL IV ONE (16:22)
[2017-12-02 16:42] LABS: Hematocrit 38 % (42-52); Hemoglobin 12.9 g/dl (14.0-18.0); Mean Corpuscular HGB Conc 34 g/dl (31-36); Mean Corpuscular Hemoglobin 31 pg (27-31); Mean Corpuscular Volume 91 fL (80-94); Mean Platelet Volume 8.1 um3 (7.4-10.4); Platelet Count 166 10^3/ul (150-450); Red Blood Count 4.14 10^6/ul (4.00-5.40); Red Cell Distribution Width 14 % (10.5-15)
[2017-12-02 16:58] LABS: EGFR Non-African American 100.7 (>60)
[2017-12-02] MEDS ORDERED: Ondansetron INJ* 2 MG/ML VIAL IV PRN (19:19)
[2017-12-02] MEDS ORDERED: Diazepam TAB(*) 5 MG PO ONE (19:19)
[2017-12-02] MEDS ORDERED: Acetaminophen TAB* 325 MG PO PRN (19:19)
[2017-12-02] MEDS: Gabapentin CAP(*) 100 MG PO SCH (20:28)
[2017-12-02] MEDS: Meclizine TAB* 12.5 MG PO SCH (20:28)
[2017-12-02] MEDS: Heparin VIAL(*) 5000 UNITS/ML VIAL (FIVE THOUSAND) SUBCUT SCH (20:29)
[2017-12-02 20:57] LABS: INR 0.99 (0.77-1.02)
--- NOTE | 2017-12-02 22:34 | HP ---
CC: Dr. Newsome; Dr. Prado; Dr. Burton * HISTORY AND PHYSICAL: DATE OF ADMISSION: 12/02/17 PRIMARY CARE PROVIDER: Dr. Newsome. ATTENDING PHYSICIAN WHILE IN THE HOSPITAL: Stefan Stafford MD * (report dictated by Blayne Cardona NP). CHIEF COMPLAINT: Dizziness. HISTORY OF PRESENT ILLNESS: Mr. Adames is a 77-year-old male patient who was recently diagnosed with a stroke in the left globus pallidus. He was recently diagnosed with a stroke and he also has history of hypertension, hyperlipidemia , chronic back pain, hypothyroidism, prostate CA, history of TIA and CVA presenting today stating that around 8:30, he woke up with sudden onset of ringing in his ears and feeling dizzy, feeling like the room was spinning. He says he has had vertigo in the past and this feels quite similar. He says that he feels like the room is spinning. He says he has been feeling nauseous and having dry heaves. He has also been having his ears ringing. He says he has not been feeling stuffed up or congested, no URI symptoms but he just was feeling unsteady. Anytime he went to stand up, he felt very dizzy. He was concerned because his symptoms were not getting any better and this afternoon he decided to come into the ER. Despite several rounds of meclizine and Reglan , he did not improve in the ED and we were asked to evaluate for admission. He denies any visual changes. He says his speech has been off ever since the stroke but it is improving. He denies any weakness to one side. No facial drooping. There has been no reports of confusion. No recent fevers, chills, nausea, vomiting or fevers or any abdominal pain or chest pain. He denies having any palpitations. He had an echo last week with [facility], we will try to get that record and he has also recently had an MRI, CTA of the head and neck and CT brain, all done outpatient. PAST MEDICAL HISTORY: Significant for, 1. Hypertension. 2. Hyperlipidemia. 3. Chronic back pain. 4. Hypothyroidism. 5. Prostate CA. 6. TIA. 7. History of CVA. PAST SURGICAL HISTORY: 1. He has had Sheila fundoplication. 2. He has had a radical prostatectomy. 3. Knee arthroscopy. 4. He has had lumbar spine surgery. 5. Appendectomy. HOME MEDICATIONS: Include, 1. Melatonin 1 mg p.o. at bedtime. 2. Synthroid 88 mcg daily. 3. Glucosamine chondroitin 1 tablet daily. 4. Gabapentin 300 mg p.o. at bedtime. 5. Flaxseed oil 1 capsule p.o. daily. 6. Plavix 75 mg daily. 7. Vitamin D 5000 units p.o. daily. 8. Aspirin 81 mg daily. 9. Fish oil 1000 mg p.o. daily. 10. Multivitamin 1 tablet daily. ALLERGIES TO MEDICATIONS: Include SULFA DRUGS. FAMILY HISTORY: Mother had history of stroke. Father had a history of stomach cancer. SOCIAL HISTORY: He does not smoke. Rarely drinks alcohol. Surrogate decision maker is his , Toshia Bowen. REVIEW OF SYSTEMS: There is no documented fever. He denies having any significant weight change. There was no double vision. He denies having any ear discharge. There was no rhinorrhea. He denies having any sore throat. He denies having any thyroid enlargement. There was no chest pain. There was no orthopnea. There was no nocturnal dyspnea. He denied having any abdominal pain. There was an episode of nausea, but no dysuria, no frequency. There was no seizure. Again, no loss of consciousness, no pruritus. No skin ulceration. Review of 14-systems completed, all others negative. PHYSICAL EXAMINATION GENERAL: Mr. Adames is a 77-year-old male patient. He is sitting in the ED stretcher. He does not appear to be in any acute distress. He is awake and alert. VITAL SIGNS: Blood pressure 143/79, pulse 64, respirations 18, O2 saturation 100%, temperature 97.9. HEENT: Head atraumatic, normocephalic. Eyes: EOMs intact. Sclerae anicteric and not pale. NECK: Supple. Throat: Oral mucosa appears to be moist. No oropharyngeal erythema. LUNGS: Clear to auscultation bilaterally. No wheezes, rales or rhonchi. HEART: Sounds S1, S2. Regular rate and rhythm. No murmurs, rubs or gallops. ABDOMEN: Soft, flat, nontender. Bowel sounds are present. EXTREMITIES: Pulses were 2+ throughout. Moving all 4 extremities with 5/5 strength. NEUROLOGIC: The patient is awake, he is alert and oriented x3. Tongue is midline. Resourcing Consultant are equal. [id number]-gc-elhp intact bilaterally. Nyxk-ys-vtxc intact bilaterally. He did have nystagmus noted on my exam on far gaze bilaterally. Pupils react to light. Speech is clear. He is awake and oriented x3 with no gross focal deficits. His speech again appeared to be intact and fluent at this point. SKIN: Intact. LABORATORY DATA: WBC 9.0, RBC of 4.14, hemoglobin 12.9, hematocrit 38, platelet count of 166. Sodium 136, potassium 4.1, chloride 105, bicarb 25, BUN 14, creatinine 0.79, glucose 115. He had an EKG obtained today as well, which revealed normal sinus rhythm, rate of 64, no ST elevation or T-wave inversion. Old medical records reviewed. ASSESSMENT AND PLAN: Mr. Adames is a 77-year-old male patient coming into the ED today with complaints of dizziness. He will be admitted under observatory status for: 1. Dizziness: I suspect this is peripheral vertigo. I did touch base with Neurology given the recent stroke. They will evaluate tomorrow, but they felt this is most likely peripheral vertigo. I am going to hold off an imaging as he has just an pretty extensive stroke workup. I will place him on telemetry while he is here. We will continue his aspirin and Plavix. For the vertigo, I did order Valium, we will put him on standing meclizine. I am going to order a Medrol Dosepak and we will have Neurology evaluate. I did order neuro checks every 4 hours. 2. Recent cerebrovascular accident: Again, he has had extensive outpatient workup. He is following with Dr. Prado. Continue his secondary prevention and he will be on telemetry while he is here. 3. Hypertension: Continue meds prescribed. 4. Hyperlipidemia: Follow up with PCP. He will merit checking lipid panel. 5. Chronic back pain: Continue p.r.n. Tylenol. 6. History of hypothyroidism: I am going to check his TSH. I will add that on given the complaints of dizziness. 7. History of prostate cancer: Follow with PCP. 8. DVT prophylaxis: He is high risk. We will place him on heparin subcu. 9. Code status: He is full code. 10. Fluid, electrolytes and nutrition: He can have clear liquid diet and if he tolerates this well, we will transition him to a heart healthy diet. TIME SPENT: Time spent on the admission was approximately 60 minutes, greater than half of the time was spent hlde-ee-gwos with the patient, obtaining history and physical, the other half of the time was spent going over the plan of care with the patient and implementing the plan of care. I did discuss plan of care with my attending, Dr. Newsome, who is in agreement. BLAYNE CARDONA, AJSBIR [id number]/CPS #: [id number] WARREN
[2017-12-03] MEDS: Levothyroxine TAB* 88 MCG TAB PO SCH (05:42)
[2017-12-03] MEDS: Heparin VIAL(*) 5000 UNITS/ML VIAL (FIVE THOUSAND) SUBCUT SCH ×3 (05:42→22:00)
[2017-12-03] MEDS: Meclizine TAB* 12.5 MG PO SCH ×3 (05:42→21:27)
[2017-12-03 06:18] LABS: ABS Basophils 0 10^3/ul (0-0.2); ABS Eosinophils 0.2 10^3/ul (0-0.6); ABS Lymphocytes 0.9 10^3/ul (1.0-4.8); ABS Monocytes 0.7 10^3/ul (0-0.8); ABS Neutrophils 7.7 10^3/ul (1.5-7.7); ABS Nucleated RBC 0 10^3/ul; Eosinophil % 1.8 % (0-6); Hematocrit 38 % (42-52); Hemoglobin 13.2 g/dl (14.0-18.0); Lymphocyte % 9.9 % (25-47); Mean Corpuscular HGB Conc 35 g/dl (31-36); Mean Corpuscular Hemoglobin 32 pg (27-31); Mean Corpuscular Volume 92 fL (80-94); Mean Platelet Volume 8.3 um3 (7.4-10.4); Nucleated Red Blood Cells % 0; Platelet Count 178 10^3/ul (150-450); Red Blood Count 4.14 10^6/ul (4.00-5.40); Red Cell Distribution Width 14 % (10.5-15); White Blood Count 9.6 10^3/ul (3.5-10.8)
[2017-12-03 06:38] LABS: EGFR Non-African American 93.5 (>60)
[2017-12-03] MEDS: Aspirin 81 mg CHEW TAB* 81 MG TAB.CHEW PO SCH (08:31)
[2017-12-03] MEDS: Clopidogrel TAB* 75 MG PO SCH (08:31)
[2017-12-03] MEDS ORDERED: methylPREDNISolone TAB* 4 MG PO SCH (09:00)
--- NOTE | 2017-12-03 12:36 | CONS ---
ADDENDUM: I have reviewed the transthoracic echo report obtained in [facility] at the [facility]. The report showed left ventricular cavity that is normal size, ejection fraction of 55% to 60%. There is an indeterminate diastolic filling pattern. There is lytton mitral valve with mild regurgitation. There is borderline prolapse of the mitral valve leaflet. There is lytton tricuspid valve with mild regurgitation. There is no evidence for pulmonary hypertension. There is lytton pulmonic valve with trace regurgitation. The aortic root is borderline mildly dilated. Mildly borderline dilated ascending aorta. Mitral regurgitation and tricuspid regurgitation are mild instead of trace when compared to 10/27/13. There is a borderline dilated thoracic aorta, which is new. I do not see a bubble study done in this echo report. The study quality is also reported to be fair. Therefore, I do recommend repeating a transthoracic echocardiogram with bubble study. Please also discontinue the steroids until we rule out any possible central etiology to the patient's vertigo. [id number]/[facility] #: [id number] SAID
--- NOTE | 2017-12-03 12:53 | CONS ---
CONSULTATION REPORT: DATE OF CONSULT: 12/03/17 CONSULTING PROVIDER: Blayne Cardona NP REASON FOR CONSULT: Vertigo. CHIEF COMPLAINT: Dizziness. HISTORY OF PRESENT ILLNESS: Mr. Jhoan Adames is a 77-year-old man with history of dyslipidemia, hypothyroidism, who was recently diagnosed with acute left globus pallidus infarction that was seen on MRI completed on 11/21/17, who presented with a sudden-onset vertigo. The patient was in normal state of health on Saturday evening. He went to sleep between 9-10 p.m. He woke up at 8 a.m. on Saturday morning with severe vertigo. He described the vertigo as spinning sensation of surrounding environment. Currently, he is staring at ceiling wall and he sees the blocks turning. He also complains of bilateral horizontal diplopia that improves with right eye closure. He denied any nausea or vomiting. He does have tinnitus that is new in the left ear. He denied any hearing loss. He denied any recent illnesses such as upper respiratory tract infection or sinusitis. He is having trouble ambulating due to the vertigo. Looking towards the right side worsens the symptoms. He complained to me and stated that the symptoms are constant but to Blayne Cardona NP, yesterday according to his notes, symptoms are intermittent. He has had vertigo in the past and this is the third bout. The vertigo seems to be quite similar but is lasting much longer. He denied any headaches. He has had multiple rounds of meclizine, Reglan, and was given Valium with minimal to no improvement. The patient started taking dual-antiplatelet therapy last week. He was always taking aspirin but Plavix was recently started 75 mg daily. I reviewed his previous imaging. The patient had a CT brain without contrast completed on 11/16/17 that showed chronic small vessel ischemic changes with age - indeterminate lacunar infarct on the left basal ganglia. CTA head and neck completed on 11/16/17 showed atherosclerotic disease with no internal carotid artery stenosis or occlusion. He had an MRI of the brain completed on 11/21/17 that showed an approximately 1.7- cm focus of acute ischemia in the left globus pallidus. PAST MEDICAL HISTORY: Hypertension, dyslipidemia, chronic back pain, hypothyroidism, prostate cancer, TIA, history of left globus pallidus ischemic infarction. PAST SURGICAL HISTORY: Sheila fundoplication. HOME MEDICATIONS: 1. Gabapentin 200 mg p.o. at bedtime. 2. Diclofenac topical. 3. Vitamin D supplement. 4. Flaxseed oil. 5. Glucosamine. 6. Multivitamins. 7. Melatonin 1 mg p.o. at bedtime. 8. Levothyroxine 88 mcg p.o. daily. 9. Clopidogrel 75 mg p.o. daily. 10. Aspirin 81 mg p.o. daily. The patient was unable to tolerate statin therapy due to myalgias. ALLERGIES: SULFA DRUGS. FAMILY HISTORY: Mother had history of stroke, father had cancer. SOCIAL HISTORY: The patient lives with his spouse. He does not smoke. He rarely drinks. The is the surrogate decision maker. The stated that since the last 2 weeks, the patient had word-finding difficulty. REVIEW OF SYSTEMS: A 14-point review of systems was obtained and otherwise negative except for as mentioned in the HPI. PHYSICAL EXAM: Vitals: Temperature of 98.3, pulse of 53, respiratory rate of 20, oxygen saturation 100, blood pressure of 144/62. General: Well-nourished, well- developed man, in no acute distress. Head is normocephalic, atraumatic without any obvious abnormality. Eyes: Conjunctivae/corneas are clear. Neck is supple and symmetrical. No carotid bruits. Lungs are clear to auscultation bilaterally with nonlabored breathing. Cardiovascular: Regular rate and rhythm with normal S1, S2. Extremities: Normal range of motion with no cyanosis. Skin: No skin lesions or lacerations. Psychiatric: Has broad and normal mood. He is easy to establish rapport. Mental status: Awake and alert. Oriented to person, place, and time and general circumstances, but he does have some word-finding difficulty, relatively very mild. Cranial nerves: Normal confrontation bilaterally. Pupils are mid range and reactive to light. Normal consensual response. Extraocular muscles are intact. He does have binocular horizontal diplopia with improvement with right eye closure. He has widening of the palpebral fissure on the left side. He does have a horizontal nystagmus with face going towards the right on primary gaze that is worse when looking towards the right but that resolves when looking towards the left. Sensation is intact on the forehead, cheeks, and jaw region to cold temperature as well. He has no clear facial asymmetry. He is able to hear throughout the history process. He has symmetrical palatal elevation. He has normal strength against resistance. His tongue is symmetrical and midline. Motor examination: He has no abnormal movements. No pronator drift. He has normal bulk and tone throughout. He is 5/5 throughout the upper and lower extremities. Reflexes : Right/left brachioradialis 2/2, biceps 2/2, triceps 2/2, patella 1/1, and ankle trace/trace. Plantar flexor/flexor. Sensation is intact to light touch and pinprick throughout. He has normal vibration at the toes. Coordination: He has mild dysmetria to nkrwbl-[id number]-cyrj on the left, but normal on the right. Reduced rapid alternative movements on the left. Gait and stations were not assessed due to the patient's vertigo and his increased risk for falls. LABORATORY DATA: WBC of 9.6, hematocrit of 38, platelets of 178. Sodium 137, potassium of 3.8, chloride of 104, carbon dioxide 27, anion gap is 6, BUN is 12 , and creatinine is 0.8. TSH is 0.89. ASSESSMENT AND PLAN: Mr. Jhoan Adaems is a 77-year-old man with recently diagnosed ischemic infarction that was thought to be due to a lacunar small vessel disease in the setting of his risk factors of hypertension and dyslipidemia. The patient presents with new-onset vertigo which is similar to his previous bouts of vertigo but this time around it is lasting longer. On examination, the patient has constant symptoms of vertigo with primary gaze horizontal nystagmus and binocular diplopia. I am concerned that he may have a small lacunar stroke into the pontine perforators versus the cerebellum on the left. I recommend repeating an MRI of the brain without contrast to evaluate for any posterior circulatory infarction. His HINT exam was negative, also raises the concerns for central vertigo. He did have an MRI with/without contrast few days ago that did not show any inner ear schwannomas. He is compliant to both aspirin and Plavix. He would not be a candidate for IV tPA or mechanical thrombectomy due to being outside the therapeutic window and also recently having a stroke within the last 3 weeks. Other differential diagnosis would be atypical benign positional paroxysmal vertigo but the fact that he has primary-gaze nystagmus makes this diagnosis less likely. Please keep systolic blood pressure between 140 - to less than 180. Please consult PT to evaluate and treat. Please consult MANAGEMENT LIAISON. I will hold off with not doing any stroke education as of yet until diagnosis is confirmed. If not yet obtained, the patient does need a carotid ultrasound. Please keep him on telemetry. We need to evaluate for atrial fibrillation long- term. Continue VTE prophylaxis. Hold off any anticoagulation therapy and instead just keep dual-antiplatelet therapy for now. Continue meclizine and Valium use. Hypertension, dyslipidemia, deferred to the primary team. TIME SPENT: I spent a total of 70 minutes of which 50% was spent obtaining history, examining the patient, and discussing the treatment plan as mentioned above. [id number]/[facility] #: [id number] WARREN
--- NOTE | 2017-12-03 15:14 | RAD ---
HISTORY: primary gaze nystagmus and vertigo COMPARISONS: November 21, 2017 TECHNIQUE: The following sequences were obtained of the head: Sagittal T1-weighted images, axial T2-weighted images, axial FLAIR images, axial susceptibility weighted images, axial T1-weighted images. Additionally, axial diffusion-weighted images were obtained with calculated apparent diffusion coefficients. FINDINGS: HEMORRHAGE/INFARCT: Again noted is elevated DWI signal within the left basal ganglia. There has been interval development of punctate restricted diffusion within the right posterior frontal lobe with questionable restricted diffusion within the superior parietal lobes bilaterally. Elsewhere, there is no hemorrhage or acute infarct. MASSES/SHIFT: There is no mass or shift. EXTRA-AXIAL SPACES/MENINGES: There are no extra-axial fluid collections. SULCI AND VENTRICLES: There is diffuse and proportional enlargement of the sulci and ventricles. CEREBRUM: There is multifocal elevated T2/STIR signal within the periventricular and subcortical white matter, with more focal elevated T2/FLAIR signal of the area of restricted diffusion of the left basal ganglia. There is right basal ganglia encephalomalacia. BRAINSTEM: There are no focal parenchymal abnormalities. CEREBELLUM: There are no focal parenchymal abnormalities. The cerebellar tonsils are normal in size and position. SELLA: The sella is normal. PINEAL: The pineal region is clear. CP ANGLE/TEMPORAL BONES: The labyrinthine structures are grossly normal. VESSELS: Normal flow-voids are noted within the visualized vertebral vasculature. DIFFUSION ABNORMALITIES: As noted above there is abnormal DWI signal within the left basal ganglia, with pseudonormalization on the ADC map consistent with subacute nonhemorrhagic infarct. There has been interval development of a punctate focus of restricted diffusion within the right posterior frontal lobe and questionable restricted diffusion versus susceptibility artifact of the superior parietal lobes bilaterally. PARANASAL SINUSES/MASTOIDS: The paranasal sinuses are clear. ORBITS: The orbits are unremarkable. BONES AND SOFT TISSUE: No bone or soft tissue abnormalities are noted. OTHER: None IMPRESSION: 1. THERE HAS BEEN INTERVAL DEVELOPMENT OF A PUNCTATE FOCUS OF RESTRICTED DIFFUSION WITHIN THE RIGHT POSTERIOR FRONTAL LOBE CONSISTENT WITH SUBACUTE NONHEMORRHAGIC INFARCT. 2. THERE IS QUESTIONABLE ABNORMAL DIFFUSION WITHIN THE SUPERIOR PARIETAL LOBES BILATERALLY, THIS MAY BE ARTIFACT. 3. AGAIN NOTED IS NONHEMORRHAGIC INFARCT OF THE LEFT BASAL GANGLIA. 4. THE PRESENCE OF INFARCTS IN MULTIPLE VASCULAR TERRITORIES SUGGESTS EMBOLIC PHENOMENON. 5. CHRONIC SMALL VESSEL ISCHEMIC CHANGES.
--- NOTE | 2017-12-03 16:16 | PN ---
Subjective Date of Service: 12/03/17 Interval History: Continues to c/o dizziness, reports that the room is spinning. hearing loss in the left ear, which he reports is improving, able to sit and eat. gait is off balance when ambulating. Denies chest pain or shortness of breath. Denies abd pain, n/v/d. Family History: Unchanged from Admission Social History: Unchanged from Admission Past Medical History: Unchanged from Admission Objective Active Medications: Acetaminophen (Tylenol Tab*) 650 mg PO Q4H PRN PRN Reason: FEVER/PAIN Aspirin (Aspirin 81 Mg Chew Tab*) 81 mg PO DAILY [facility] Last Admin: 12/03/17 08:31 Dose: 81 mg Clopidogrel Bisulfate (Plavix Tab*) 75 mg PO DAILY [facility] Last Admin: 12/03/17 08:31 Dose: 75 mg Gabapentin (Neurontin Cap(*)) 200 mg PO BEDTIME [facility] Last Admin: 12/02/17 20:28 Dose: 200 mg Heparin Sodium (Porcine) (Heparin Vial(*)) 5,000 units SUBCUT Q8HR [facility] Last Admin: 12/03/17 15:25 Dose: 5,000 units Levothyroxine Sodium (Synthroid Tab*) 88 mcg PO DAILY@0600 [facility] Last Admin: 12/03/17 05:42 Dose: 88 mcg Meclizine HCl (Antivert Tab*) 12.5 mg PO Q8HR [facility] Last Admin: 12/03/17 15:25 Dose: 12.5 mg Ondansetron HCl (Zofran Inj*) 4 mg IV Q6H PRN PRN Reason: NAUSEA Vital Signs - 8 hr 12/03/17 12/03/17 11:15 15:15 Temperature 98.1 F 97.7 F Pulse Rate 56 59 Respiratory 20 18 Rate Blood Pressure 128/64 133/64 (mmHg) O2 Sat by Pulse 95 98 Oximetry Oxygen Devices in Use Now: None Appearance: appears fatigued, lying in bed, no acute distress Eyes: No Scleral Icterus Ears/Nose/Mouth/Throat: Clear Oropharnyx, Mucous Membranes Moist Neck: NL Appearance and Movements; NL JVP, Trachea Midline Respiratory: Symmetrical Chest Expansion and Respiratory Effort, Clear to Auscultation Cardiovascular: NL Sounds; No Murmurs; No JVD Extremities: No Edema Skin: No Rash or Ulcers Neurological: Alert and Oriented x 3, - - nystagmus noted, cranial nerves II- VII intact, motor function intact, speech is clear, tongue is midline Nutrition: Taking PO's Result Diagrams: 12/03/17 06:00 12/03/17 06:00 Assess/Plan/Problems-Billing Assessment: Mr. Adames is a 77 y.o male with a pmhx of CVA, HTN, - Patient Problems (1) CVA (cerebral vascular accident) Current Visit: Yes Status: Acute Code(s): I63.9 - CEREBRAL INFARCTION, UNSPECIFIED SNOMED Code(s): 071996712 Comment: Patient with a recent hx of CVA in the left MRI today shows subacute infarct in the right posterior frontal lobe Will continue plavix and ASA as well as statin therapy Neurology consulted Will get a TTE with bubble study - would recommend [facility]iary cardiac monitoring to r/o arrhythmia as a cause of what appears to be embolic in nature given the multiple areas of the brain involved. (2) Dizziness Current Visit: Yes Status: Acute Code(s): R42 - DIZZINESS AND GIDDINESS SNOMED Code(s): 899470001 Comment: This could be related to vertigo Neurology was consulted - will stop steriods for now as per neurology recommendations - will continue meclizine and valium as needed for the dizziness (3) HTN (hypertension) Current Visit: Yes Status: Acute Code(s): I10 - ESSENTIAL (PRIMARY) HYPERTENSION SNOMED Code(s): 90375927 Comment: Continue to monitor not currently on home medications (4) HLD (hyperlipidemia) Current Visit: Yes Status: Acute Code(s): E78.5 - HYPERLIPIDEMIA, UNSPECIFIED SNOMED Code(s): 26474626 Comment: Continue crestor (5) Hypothyroid Current Visit: Yes Status: Acute Code(s): E03.9 - HYPOTHYROIDISM, UNSPECIFIED SNOMED Code(s): 77259136 Comment: continue levothyroxine (6) DVT prophylaxis Current Visit: Yes Status: Acute Code(s): GKC4067 - SNOMED Code(s): 266732080 Comment: heparin sub q (7) Full code status Current Visit: Yes Status: Acute Code(s): Z78.9 - OTHER SPECIFIED HEALTH STATUS SNOMED Code(s): 569521907 Status and Disposition: inpatient - discharge home when medically stable
[2017-12-03] MEDS: Gabapentin CAP(*) 100 MG PO SCH (21:27)
[2017-12-03] MEDS: Atorvastatin* 40 MG TAB PO SCH (21:27)
[2017-12-03] MEDS: PRESERVISION AREDS PO SCH (21:28)
[2017-12-04] MEDS: Heparin VIAL(*) 5000 UNITS/ML VIAL (FIVE THOUSAND) SUBCUT SCH ×3 (06:15→21:31)
[2017-12-04] MEDS: Meclizine TAB* 12.5 MG PO SCH ×2 (06:15→13:23)
[2017-12-04] MEDS: Levothyroxine TAB* 88 MCG TAB PO SCH (06:15)
[2017-12-04 07:04] LABS: Hematocrit 40 % (42-52); Hemoglobin 13.9 g/dl (14.0-18.0); Mean Corpuscular HGB Conc 34 g/dl (31-36); Mean Corpuscular Hemoglobin 32 pg (27-31); Mean Corpuscular Volume 92 fL (80-94); Red Blood Count 4.38 10^6/ul (4.00-5.40); Red Cell Distribution Width 14 % (10.5-15); White Blood Count 11.4 10^3/ul (3.5-10.8)
[2017-12-04 07:30] LABS: EGFR Non-African American 92.2 (>60)
[2017-12-04] MEDS: Clopidogrel TAB* 75 MG PO SCH (08:25)
[2017-12-04] MEDS: Aspirin 81 mg CHEW TAB* 81 MG TAB.CHEW PO SCH (08:25)
[2017-12-04] MEDS: Multivitamins/Minerals TAB PO SCH (08:25)
[2017-12-04 08:54] LABS: ABS Basophils 0 10^3/ul (0-0.2); ABS Eosinophils 0.2 10^3/ul (0-0.6); ABS Lymphocytes 1.5 10^3/ul (1.0-4.8); ABS Monocytes 1.1 10^3/ul (0-0.8); ABS Neutrophils 8.6 10^3/ul (1.5-7.7); ABS Nucleated RBC 0 10^3/ul; Eosinophil % 1.8 % (0-6); Lymphocyte % 13.1 % (25-47); Mean Platelet Volume 8.9 um3 (7.4-10.4); Nucleated Red Blood Cells % 0.1; Platelet Count 149 10^3/ul (150-450)
[2017-12-04] MEDS: PRESERVISION AREDS PO SCH (09:37)
--- NOTE | 2017-12-04 11:47 | PN ---
NEUROLOGY PROGRESS NOTE: DATE OF SERVICE: 12/04/17 CHIEF COMPLAINT: Dizziness and unsteady gait. SUBJECTIVE: Mr. Adames was lying in bed and had his breakfast this morning. He was able to tolerate his breakfast without any episodes of vomiting. He does feel nauseated. He continues to have nearly constant vertigo, mostly spinning sensation towards the right with hearing loss and tinnitus in the left ear. Again, the patient stated that this is very typical for his vertigo, but it is lasting longer. He still has vertigo and primary gaze, but it is definitely less than when looking towards the right side. He denied any focal weakness or paresthesias. He continues to have word-finding difficulty related to his initial stroke late October. He is tolerating aspirin and Plavix therapies. The patient denied any headaches, visual disturbance, or swallowing difficulty. He continues to have binocular horizontal diplopia, worse on the right side. REVIEW OF SYSTEMS: He denied any chest pain, shortness of breath, or palpitation. LABORATORY/IMAGING STUDIES AND OTHER DIAGNOSTIC TESTING: MRI of the brain without contrast completed on 12/03/17 and compared with 11/21/17 showed an interval development of a punctuate focus of restricted diffusion within the right posterior frontal lobe consistent with an acute-subacute nonhemorrhagic infarct. There is also questionable normal diffusion within the superior parietal lobe as well as the left cerebellum near the medial cerebellar peduncle. There is no evidence of intracranial hemorrhage. The presence of infarcts in multiple vasculature to suggest embolic phenomenon. I reviewed the head and neck CT completed on 11/16/17 that showed no internal carotid artery stenosis. There was no large vessel stenosis or occlusion. WBC 11.4 (the patient received Medrol Dosepak on 12/02/17), hemoglobin 13.9, hematocrit 40, platelets 149. Sodium 139, potassium 3.9, chloride 107, carbon dioxide 24, anion gap 8, BUN is 13, creatinine is 0.81. Hemoglobin A1c 5.5. TSH 0.89. INR 1, APTT 25.6. MEDICATIONS: 1. Acetaminophen 650 mg p.o. every 4 hours as needed for fever. 2. Aspirin 81 mg p.o. daily. 3. Atorvastatin 40 mg p.o. at bedtime. 4. Plavix 75 mg p.o. daily. 5. Gabapentin 200 mg p.o. at bedtime. 6. Heparin sodium 5000 units subcutaneously every 8 hours. 7. Levothyroxine 88 mcg p.o. daily. 8. Meclizine 12.5 mg p.o. every 8 hours. 9. Multivitamins nonformulary medication. 10. Ondansetron 4 mg IV every 6 hours as needed for nausea. PHYSICAL EXAMINATION: Vitals: Temperature 97.9, pulse of 59, respiratory rate of 18, oxygen saturation 98, blood pressure 157/65. General: Well-nourished, well- developed man, in no acute distress. He has his head fixated at primary gaze and his eyes closed to prevent any vertigo. Head: Normocephalic without any obvious abnormality. Eyes: Conjunctivae/corneas were clear with no sclera icterus. Neck is supple, symmetrical with no carotid bruit. Lungs: Clear to auscultation bilaterally with nonlabored breathing. Cardiovascular: Regular rhythm. Normal S1, S2. Extremities: Normal range of motion with no cyanosis. Skin: No skin lesions or lacerations. Psych: Affect is broad and normal mood. Easy to establish report. Neurological Examination: Mental status, awake, alert, oriented to person, place, time, and general circumstances. The patient continues to have mild spastic dysarthria and expressive aphasia. Cranial Nerve: Normal confrontation testing bilaterally. Pupils are mid range and reactive to light. On primary gaze, there is horizontal nystagmus with fast phase going towards the right. With right gaze, the nystagmus increases its intensity and it completely resolves with the left gaze. He has no ptosis. Sensation is intact on the forehead, cheeks, and jaw region bilaterally. He has no facial droop. He has hearing loss in the left ear. Motor: No abnormal movements or pronator drift, 5/5 strength throughout the upper and lower extremities. Reflexes 2+ in the right and left brachioradialis, biceps, triceps , 1+ in the patella and ankles bilaterally. Flexor plantar response bilaterally. Sensation is intact to light touch and pinprick throughout. Coordination, mild dysmetria to [id number] on the left upper extremity. Gait and station ataxia towards the left and required 1 person assist when ambulating. He does have a wide-based gait. ASSESSMENT: Mr. Jhoan Adames is a 77-year-old man who presented to [facility] with new symptoms of dizziness. 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 On examination, the patient has primary gaze nystagmus and constant vertigo that does fluctuate and is usually worse when looking towards the right. Otherwise, he also has ataxic gait towards the left side. Repeat intracranial imaging with an MRI of the brain showed a new right parietal lobe ischemic infarction and questionable areas in the left cerebellum, mostly in the cerebellar peduncle as well as bilateral parietal lobes. 1. Vertigo - the more I examined the patient the more I suspected vertigo is likely contributory to an atypical peripheral vertigo seen in benign positional paroxysmal vertigo. The atypical component is the primary gaze nystagmus and the nearly constant vertigo. However, in severe cases of peripheral vertigo, primary gaze nystagmus is not an uncommon finding. 2. New right parietal ischemic infarction and questionable left cerebellar peduncle ischemic infarction - I do not suspect the high parietal DWI signal to be real ischemic stroke as there is no correlation on ADC mapping. Therefore, this is probably an artifact. However, I am concerned that the patient now has a new small embolic infarct that can be clearly seen on DWI and correlates with ADC mapping. He has no evidence of intracranial or carotid disease. Therefore, it is important to rule out any cardioembolic phenomenon that may be causing these strokes. We will repeat an echo with bubble study today. He should be followed up by Cardiology to consider placing a Holter monitor for 30 days or a loop recorder to evaluate for atrial fibrillation, arrhythmias since this will change the medical management. In the meantime, I recommend continuing dual antiplatelet therapy and Lipitor 40 mg at bedtime. 3. Subacute left globus pallidus/thalamic ischemic infarction - the patient is on dual antiplatelet therapy that was recently started right after the results of this stroke in late October. I will continue dual antiplatelet therapy for now. It would be slightly aggressive to put him on anticoagulation therapy when we do not have source of clot or cardioembolic phenomena other than just this new small little punctate infarct in the right parietal lobe. I discussed this with the family and they would rather wait to see an actual location of the embolic phenomenon prior to starting anticoagulation therapy. OTHER RECOMMENDATIONS: I consulted [employer]SETTER AD[employer]ER and PT to evaluate and treat the patient. The patient does not need OT evaluation since he is able to move his extremities without any complication. He may need acute rehabilitation for his ataxia that is most likely related to the peripheral vertical or superimposed to the small cerebellar infarction that was seen on the MRI. If the patient's vertigo is not improving on meclizine, we can use a low-dose Valium as needed. I did not do the Madeleine-Hallpike maneuver or Jeet maneuver on the patient as he just recently had a meal, but if Physical Therapy can assist in doing these maneuvers, it would be great. Lastly, the patient will need aggressive therapy for balance training and vestibular rehab. He will also need a ENT consultation as outpatient to obtain an audiogram. Continue neuro checks every 4 hours. I will continue to follow. [id number]/[facility] #: [id number] [place]ARREN
--- NOTE | 2017-12-04 12:45 | ECHO ---
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 Left Ventricle: The left ventricular chamber size is normal. Mild concentric left ventricular hypertrophy is observed. There is increased basal septal hypertrophy noted without evidence of an increased gradient across the left ventricular outflow tract. The septal knuckle measures 1.4 cm. Global left ventricular wall motion and contractility are within normal limits. There is normal left ventricular systolic function. The estimated ejection fraction is 55-60%. There is no consistent Doppler evidence of clinically significant diastolic dysfunction. Left Atrium: The left atrial chamber size is normal. Right Ventricle: The right ventricular cavity size is normal. The right ventricular global systolic function is normal. Right Atrium: The right atrial cavity size is normal. The bubble study is negative. A patent foramen ovale is not demonstrated with color Doppler and agitated contrast. There is evidence of an atrial septal aneurysm. Aortic Valve: The aortic valve is trileaflet. The aortic valve leaflets are mildly thickened. There is aortic annular calcification. There is no evidence of aortic regurgitation. There is no evidence of aortic stenosis. Mitral Valve: Mild mitral annular calcification present. The mitral valve leaflets are mildly thickened. There is mild mitral regurgitation. There is no evidence of mitral stenosis. Tricuspid Valve: The tricuspid valve leaflets are normal. There is trace to mild tricuspid regurgitation. No pulmonary hypertension is noted. There is no tricuspid stenosis. Pulmonic Valve: The pulmonic valve appears normal. There is trace to mild pulmonic regurgitation. There is no pulmonic stenosis. Pericardium: There is no significant pericardial effusion. Aorta: There is mild dilatation of the ascending aorta. at 3.7 cm. There is no dilatation of the aortic arch. There is no dilation of the aortic root. Pulmonary Artery: The main pulmonary artery appears normal. Venous: The inferior vena cava appears normal in size. There is a greater than 50% respiratory change in the inferior vena cava dimension. Contrast: Normal saline was used as contrast for the bubble study. Images 1 and 2. Summary: There are no significant changes when compared to the previous study done on 11/29/2017, other than this is a bubble study. Conclusions The left ventricular chamber size is normal. Mild concentric left ventricular hypertrophy is observed. There is increased basal septal hypertrophy noted without evidence of an increased gradient across the left ventricular outflow tract. The septal knuckle measures 1.4 cm. The estimated ejection fraction is 55-60%. There is no consistent Doppler evidence of clinically significant diastolic dysfunction. The bubble study is negative. A patent foramen ovale is not demonstrated with color Doppler and agitated contrast. There is evidence of an atrial septal aneurysm. There is mild mitral regurgitation. There is trace to mild tricuspid regurgitation. No pulmonary hypertension is noted. There is trace to mild pulmonic regurgitation. There is mild dilatation of the ascending aorta. at 3.7 cm. Measurements Name Value Normal Range RVDdMajor (2D) 4.1 cm (2.2 - 4.4) RAd ISD 4CH 4.7 cm (3.4 - 4.9) RA (A4C)W 3.4 cm (2.9 - 4.6) IVSd (2D) 1.2 cm (0.6 - 1) LVPWd (2D) 1.2 cm (0.6 - 1) LVIDd (2D) 4.3 cm (3.6 - 5.4) LVIDs (2D) 2.5 cm - LV FS (2D) 42 % (25 - 45) Aortic Annulus 2.3 cm (1.4 - 2.6) Ao root diameter (2D) 3.1 cm (2.1 - 3.5) Ascending Ao 3.7 cm (2.1 - 3.4) Aortic arch 3 cm (1.8 - 3.4) LA dimension (AP) 2D 3.8 cm (2.3 - 3.8) LAd ISD 4CH 5 cm (2.9 - 5.3) LA ISD 4CH W 3.8 cm (2.5 - 4.5) Name Value Normal Range LA ESV SP 4CH (A/L) 58 ml - LA ESV SP 2CH (A/L) 48 ml - LA ESV BP (A/L) 54 ml - LA ESV BP (A/L) index 27.1 ml/m2 - LA ESV SP 4CH (MOD) 51 ml - LA ESV SP 2CH (MOD) 45 ml - Name Value Normal Range MV E-wave Vmax 0.73 m/sec - MV deceleration time 289 msec - MV A-wave Vmax 0.94 m/sec - MV E:A ratio 0.78 ratio - LV septal e' Vmax 0.06 m/sec - LV lateral e' Vmax 0.08 m/sec - LV E:e' septal ratio 12.2 ratio - LV E:e' lateral ratio 9.1 ratio - Name Value Normal Range AV Vmax 1.6 m/sec - AV VTI 39.9 cm - AV peak gradient 10.4 mmHg - AV mean gradient 6.7 mmHg - LVOT Vmax 0.97 m/sec - LVOT VTI 22.7 cm - LVOT peak gradient 3.7 mmHg - LVOT mean gradient 1.9 mmHg - JR Vmax 0.72 m/sec - Name Value Normal Range TR Vmax 2.3 m/sec - TR peak gradient 21 mmHg - RAP 3 mmHg - RVSP 24 mmHg - IVC diameter 11.7 cm - Name Value Normal Range PV Vmax 1.1 m/sec -
[2017-12-04] MEDS ORDERED: Diazepam TAB(*) 5 MG PO PRN (14:43)
--- NOTE | 2017-12-04 15:33 | PN ---
Subjective Date of Service: 12/04/17 Interval History: patient reports he feels much better after Dr. Burton preformed lisseth maneuver - currently denies dizziness. Reports he feels unsteady on his feet and reports he feels like he would benefit from rehab. Pt denies any weakness Family History: Unchanged from Admission Social History: Unchanged from Admission Past Medical History: Unchanged from Admission Objective Active Medications: Acetaminophen (Tylenol Tab*) 650 mg PO Q4H PRN PRN Reason: FEVER/PAIN Aspirin (Aspirin 81 Mg Chew Tab*) 81 mg PO DAILY [facility] Last Admin: 12/04/17 08:25 Dose: 81 mg Atorvastatin Calcium (Lipitor*) 40 mg PO BEDTIME [facility] Last Admin: 12/03/17 21:27 Dose: 40 mg Clopidogrel Bisulfate (Plavix Tab*) 75 mg PO DAILY [facility] Last Admin: 12/04/17 08:25 Dose: 75 mg Diazepam (Valium Tab(*)) 2.5 mg PO Q8H PRN PRN Reason: For severe vertigo Gabapentin (Neurontin Cap(*)) 200 mg PO BEDTIME [facility] Last Admin: 12/03/17 21:27 Dose: 200 mg Heparin Sodium (Porcine) (Heparin Vial(*)) 5,000 units SUBCUT Q8HR [facility] Last Admin: 12/04/17 13:22 Dose: 5,000 units Levothyroxine Sodium (Synthroid Tab*) 88 mcg PO DAILY@0600 [facility] Last Admin: 12/04/17 06:15 Dose: 88 mcg Multivitamins/Minerals (Theragran/Minerals Tab*) 1 tab PO DAILY [facility] Last Admin: 12/04/17 08:25 Dose: 1 tab Multivitamins/Minerals (Preservision Areds 2) 1 cap PO BID [facility] Ondansetron HCl (Zofran Inj*) 4 mg IV Q6H PRN PRN Reason: NAUSEA Vital Signs - 8 hr 12/04/17 12/04/17 12/04/17 07:58 08:22 12:01 Temperature 97.9 F 98.1 F Pulse Rate 59 57 Respiratory 18 18 16 Rate Blood Pressure 157/65 132/65 (mmHg) O2 Sat by Pulse 98 95 Oximetry Oxygen Devices in Use Now: None Appearance: A+Ox3 in NAD Eyes: No Scleral Icterus, PERRLA Ears/Nose/Mouth/Throat: NL Teeth, Lips, Gums, Mucous Membranes Moist Neck: NL Appearance and Movements; NL JVP Respiratory: Symmetrical Chest Expansion and Respiratory Effort, Clear to Auscultation Cardiovascular: NL Sounds; No Murmurs; No JVD, RRR, No Edema Abdominal: NL Sounds; No Tenderness; No Distention Extremities: No Edema, No Clubbing, Cyanosis Skin: No Rash or Ulcers, No Nodules or Sclerosis Neurological: Alert and Oriented x 3, NL Sensation, NL Muscle Strength and Tone Lines/Tubes/Other Access: Clean, Dry and Intact Peripheral IV Nutrition: Taking PO's Result Diagrams: 12/04/17 06:32 12/04/17 06:32 Assess/Plan/Problems-Billing Assessment: Mr. Adames is a 77 y.o male with a pmhx of recent CVA, HTN who presented with dizziness found to have a new CVA - Patient Problems (1) CVA (cerebral vascular accident) Comment: Patient with a recent hx of CVA Now new CVA - MRI shows subacute infarct in the right posterior frontal lobe Will continue plavix, ASA, statin therapy Appreciate Neurology consult - recommends dual antiplatlet therapy - Require's Holter monitoring as outpt TTE with bubble study negative (2) Dizziness Comment: - Neurology performed Lisseth manuever which improved pts vertigo - DC meclizine per pt request (3) HLD (hyperlipidemia) Comment: Continue crestor (4) HTN (hypertension) Comment: Continue to monitor not currently on home medications (5) Hypothyroid Comment: continue levothyroxine (6) DVT prophylaxis Comment: heparin sub q (7) Full code status Status and Disposition: inpatient - PMRU eval pending
[2017-12-04] MEDS: Gabapentin CAP(*) 100 MG PO SCH (21:30)
[2017-12-04] MEDS: Atorvastatin* 40 MG TAB PO SCH (21:31)
[2017-12-04] MEDS: PTO:Multivitamins/Minerals AREDS2 cap PO SCH (21:31)
[2017-12-04] MEDS: Melatonin 3 MG TAB PO PRN (23:19)
[2017-12-05] MEDS: Heparin VIAL(*) 5000 UNITS/ML VIAL (FIVE THOUSAND) SUBCUT SCH ×3 (06:00→21:14)
[2017-12-05] MEDS: Levothyroxine TAB* 88 MCG TAB PO SCH (06:00)
[2017-12-05] MEDS: PTO:Multivitamins/Minerals AREDS2 cap PO SCH ×2 (09:14→21:10)
[2017-12-05] MEDS: Aspirin 81 mg CHEW TAB* 81 MG TAB.CHEW PO SCH (09:15)
[2017-12-05] MEDS: Clopidogrel TAB* 75 MG PO SCH (09:15)
[2017-12-05] MEDS: Multivitamins/Minerals TAB PO SCH (09:15)
--- NOTE | 2017-12-05 10:42 | PN ---
NEUROLOGY PROGRESS NOTE: DATE OF SERVICE: 12/05/17 PRIMARY PROVIDER: Sary Lemos NP REASON: Neurology is following for the evaluation and management of stroke and peripheral vertigo. CHIEF COMPLAINT: Dizziness and feeling tired and fatigued. SUBJECTIVE: The patient is complaining of feeling tired this morning. He is slightly diaphoretic. He did not receive any Valium overnight. He did not receive any meclizine either. He did receive melatonin at bedtime as well as gabapentin. The patient continues to complain of vertigo. He thinks the vertigo is better. He had 100% of his breakfast this morning. He also has associated symptoms of tinnitus and left ear hearing loss. MEDICATIONS: 1. Acetaminophen 650 mg p.o. every 4 hours as needed for fever. 2. Aspirin 81 mg daily. 3. Atorvastatin 40 mg p.o. at bedtime. 4. Clopidogrel 75 mg p.o. daily. 5. Diazepam 2.5 mg p.o. every 8 hours as needed for severe vertigo. 6. Gabapentin 200 mg p.o. at bedtime. 7. Heparin sodium 5000 units subcutaneous every 8 hours. 8. Levothyroxine 88 mcg daily. 9. Melatonin 3 mg p.o. at bedtime as needed. 10. Multivitamins 1 tablet p.o. daily. 11. Ondansetron 4 mg every 6 hours as needed. REVIEW OF SYSTEMS: He denied any headaches, neck pain, palpitation, or chest pain. PHYSICAL EXAMINATION: Vitals: Temperature 99.2, pulse rate of 70, respiratory rate of 18, oxygen saturation 98%, blood pressure 139/88. General: Mild ill- appearing man, in no acute distress. He is burping, but not vomiting. He feels slightly nauseated. Otherwise, he is lying in bed comfortably with his eyes closed. HEENT: Atraumatic, normocephalic. No scleral icterus. Respiratory: Clear to auscultation bilaterally. Cardiovascular: Regular rate and rhythm with no murmurs. I reviewed the telemetry. There is no evidence of atrial fibrillation overnight. Extremities: No hammertoes or high arches. Skin: No skin lesions or laceration. Neurological Examination: Mental Status : The patient is awake, alert, oriented to person, place, time, and general circumstance. He has mild expressive aphasia and dysarthria. Cranial Nerves: Pupils are equal, round, and reactive to light. Extraocular muscles are intact. There is a horizontal nystagmus towards the right that is mild. I cannot appreciate any primary gaze nystagmus. No facial asymmetry. Tongue is symmetric and midline with no atrophy. Motor examination: Moves all 4 extremities to command. No pronator drift. He has 5/5 strength in upper and lower extremities. Sensory Examination: Normal sensation to light touch and pinprick throughout. Reflexes are 1+ throughout with 0 at the ankles. Coordination: Mild dysmetria on [id number] on the left side, but normal on the right. Gait: Wide-based gait with ataxia requiring 1-person assist. DIAGNOSTIC STUDIES: Echo was obtained on 12/04/17, showed an ejection fraction of 55% to 60%. The left ventricular chamber size is normal. There is mild concentric left ventricular hypertrophy. There is an increased basal septal hypertrophy noted without evidence of an increased gradient across the left ventricle. The bubble study is negative. There is no patent foramen ovale. There is no evidence of atrial septal aneurysm. The study quality is fair. ASSESSMENT AND RECOMMENDATIONS: Mr. Jhoan Adames is a 77-year-old man, who has a prior history of left basal ganglia infarction, who presented with sudden- onset vertigo and ataxia on 12/02/17. The patient was found to have a new right parietal ischemic infarction, which is small and a left middle cerebellar peduncle infarction that is seen on the DWI diffusion study. 1. Vertigo, tinnitus, left hearing loss, most likely related to benign positional paroxysmal vertigo. It is atypical for the patient to have primary gaze nystagmus with the peripheral vertigo. However, there are some severe cases of peripheral vertigo that can present with primary gaze nystagmus. This has improved with Jeet maneuver that was performed yesterday. 2. New right parietal and left cerebellar peduncle ischemic infarction - the patient recently had a left globus pallidus infarction. He does have ischemic infarctions to multiple vascular distributions now within a period of 3 weeks. This raises a concern for cardioembolic phenomenon since the CTA head and neck did not show any intra- or extravascular stenosis or occlusion. I recommend dual antiplatelet therapy for now. Given the fair quality of the transthoracic echo done yesterday, we recommend doing a transesophageal echo to rule out any left atrial thrombus. In addition, the patient will need Holter monitoring or loop recorder to evaluate for cardiac arrhythmias. I do not suspect the patient to have vasculitis given that he has no evidence of headaches. Continue Lipitor 40 mg at bedtime. The patient will need acute rehabilitation. We discussed fall precautions. 3. Subacute left globus pallidus/thalamic ischemic infarction - the patient is on dual antiplatelet therapy. Further workup for cardioembolic phenomenon is recommended. The patient should receive UNISAW OPERATOR and PT to evaluate and treat. Please monitor for any signs of infection. The patient has a slight bump in his temp this morning at 99 and he was extremely tachycardic and fatigued when ambulating. Treat temperatures greater than 100.4 with Tylenol every 6 hours as needed. 4. Fatigue - I discontinued the patient's melatonin and decreased the gabapentin 100 mg nightly to minimize sedation. . His TSH was checked during this hospitalization and it was 0.89. I will order a vitamin B12 level. TIME SPENT: I spent a total of 30 minutes of which 50% was spent examining the patient and discussing the treatment plan with the patient and the primary team. I will continue to follow. [id number]/CPS #: [id number]
--- NOTE | 2017-12-05 15:43 | PN ---
Subjective Date of Service: 12/05/17 Interval History: Patient reports he is tired from working with OT and PT but overall feels that he is improving daily. Denies dizziness currently but reports he had vertigo earlier this morning but overall states this is better than yesterday. Reports good appetite, no difficulty swallowing. denies weakness, numbness, tingling. Continues to feel unsteady on his feet. Denies cough/SOB. No urinary symptoms Family History: Unchanged from Admission Social History: Unchanged from Admission Past Medical History: Unchanged from Admission Objective Active Medications: Acetaminophen (Tylenol Tab*) 650 mg PO Q4H PRN PRN Reason: FEVER/PAIN Aspirin (Aspirin 81 Mg Chew Tab*) 81 mg PO DAILY [facility] Last Admin: 12/05/17 09:15 Dose: 81 mg Atorvastatin Calcium (Lipitor*) 40 mg PO BEDTIME [facility] Last Admin: 12/04/17 21:31 Dose: 40 mg Clopidogrel Bisulfate (Plavix Tab*) 75 mg PO DAILY [facility] Last Admin: 12/05/17 09:15 Dose: 75 mg Diazepam (Valium Tab(*)) 2.5 mg PO Q8H PRN PRN Reason: For severe vertigo Gabapentin (Neurontin Cap(*)) 200 mg PO BEDTIME [facility] Last Admin: 12/04/17 21:30 Dose: 200 mg Heparin Sodium (Porcine) (Heparin Vial(*)) 5,000 units SUBCUT Q8HR [facility] Last Admin: 12/05/17 14:03 Dose: 5,000 units Levothyroxine Sodium (Synthroid Tab*) 88 mcg PO DAILY@0600 [facility] Last Admin: 12/05/17 06:00 Dose: 88 mcg Melatonin (Melatonin) 3 mg PO BEDTIME PRN; Protocol PRN Reason: Sleep Last Admin: 12/04/17 23:19 Dose: 3 mg Multivitamins/Minerals (Theragran/Minerals Tab*) 1 tab PO DAILY [facility] Last Admin: 12/05/17 09:15 Dose: 1 tab Multivitamins/Minerals (Preservision Areds 2) 1 cap PO BID [facility] Last Admin: 12/05/17 09:14 Dose: 1 cap Ondansetron HCl (Zofran Inj*) 4 mg IV Q6H PRN PRN Reason: NAUSEA Vital Signs - 8 hr 12/05/17 12/05/17 12/05/17 07:39 08:00 13:46 Temperature 99.2 F 98.2 F Pulse Rate 70 69 Respiratory 16 18 18 Rate Blood Pressure 139/88 129/62 (mmHg) O2 Sat by Pulse 98 99 Oximetry Oxygen Devices in Use Now: None Appearance: 77 yo male laying in bed in NAD, A+O x3. Flat affect Ears/Nose/Mouth/Throat: NL Teeth, Lips, Gums, Mucous Membranes Moist Respiratory: Symmetrical Chest Expansion and Respiratory Effort, Clear to Auscultation Cardiovascular: NL Sounds; No Murmurs; No JVD, RRR, No Edema Abdominal: NL Sounds; No Tenderness; No Distention Extremities: No Edema, No Clubbing, Cyanosis Skin: No Rash or Ulcers, No Nodules or Sclerosis Neurological: Alert and Oriented x 3, NL Sensation, NL Muscle Strength and Tone Lines/Tubes/Other Access: Clean, Dry and Intact Peripheral IV Nutrition: Taking PO's Result Diagrams: 12/04/17 06:32 12/04/17 06:32 Assess/Plan/Problems-Billing Assessment: Mr. Adames is a 77 y.o male with a pmhx of recent CVA, HTN who presented with dizziness found to have a new CVA - Patient Problems (1) CVA (cerebral vascular accident) Comment: Patient with a recent hx of CVA now new parietal and left cerebellar ischemic CVA -concern for cardioembolic cva negative CTA head/neck Will continue plavix, ASA, statin therapy Appreciate Neurology consult - recommends dual antiplatlet therapy - TTE with bubble study negative - plan for TANVIR tomorrow - NPO after midnight - may require Holter monitoring as outpt if TANVIR is negative? (2) Dizziness Comment: - Neurology performed Jeet beverly 12/04 which improved pts vertigo - DC meclizine per pt request (3) Fatigue Comment: - will send urinalysis in the setting of new mild leukocytosis - neurology decreased gabapentin and pts melatonin was DC'd. B12 level pending (4) HLD (hyperlipidemia) Comment: Continue atorvastatin (5) HTN (hypertension) Comment: Continue to monitor not currently on home medications (6) Hypothyroid Comment: continue levothyroxine (7) DVT prophylaxis Comment: heparin sub q (8) Full code status Status and Disposition: inpatient - PMRU eval pending
[2017-12-05] MEDS: Atorvastatin* 40 MG TAB PO SCH (21:09)
[2017-12-05] MEDS: Gabapentin CAP(*) 100 MG PO SCH (21:09)
[2017-12-05] MEDS: Melatonin 3 MG TAB PO PRN (21:14)
[2017-12-06] MEDS: Heparin VIAL(*) 5000 UNITS/ML VIAL (FIVE THOUSAND) SUBCUT SCH ×2 (06:25→14:05)
[2017-12-06] MEDS: Levothyroxine TAB* 88 MCG TAB PO SCH (06:25)
[2017-12-06] MEDS: Aspirin 81 mg CHEW TAB* 81 MG TAB.CHEW PO SCH (08:04)
[2017-12-06] MEDS: PTO:Multivitamins/Minerals AREDS2 cap PO SCH (08:04)
[2017-12-06] MEDS: Clopidogrel TAB* 75 MG PO SCH (08:04)
[2017-12-06] MEDS: Multivitamins/Minerals TAB PO SCH (08:04)
[2017-12-06] MEDS ORDERED: Flumazenil* 0.1 MG/ML 5 ML MDV ONE (09:09)
[2017-12-06] MEDS ORDERED: Lidocaine 2% VISCOUS* 15 ML UDC ONE (09:09)
[2017-12-06] MEDS ORDERED: fentaNYL* 50 MCG/ML 2 ML VIAL (100 MCG VIAL) ONE (09:09)
[2017-12-06] MEDS ORDERED: Naloxone* 0.4 MG/ML 1 ML VIAL ONE (09:09)
[2017-12-06] MEDS ORDERED: Midazolam* 1 MG/ML 10 ML VIAL (10 MG) ONE (09:09)
[2017-12-06] MEDS ORDERED: Metoprolol Tartrate IV* 1 MG/ML 5 ML VIAL ONE (09:58)
[2017-12-06 11:43] VITALS: BP 129/74
--- NOTE | 2017-12-06 12:35 | TEE ---
Patient: Frandy DEL RIO [facility] Rec#: [id number] : 1940 Date: 12/06/2017 Age: 77y Height: 177.8 cm / 70.0 in Weight: 79.8 kg / 175.9 lbs Sex: M BSA: 2 Room#: [facility] Admit Date#: 12/04/2017 Type: Inpatient Referring: Sary Lemos Performing: Jefferson Browning MD Reading: Jefferson Browning MD Audiovisual Equipment Operator: Candy Preciado RN RDCS Nurse: Christelle Barber CC: Max Newsome MD Transesophageal Echocardiogram Indication: CVA BP: 154/82 HR: 65 Rhythm: NSR Findings History: HTN, HLD, hypothyroidism, prostate cancer, TIA, CVA Technical Comments: The study quality is good. Left Ventricle: The left ventricular chamber size is normal. There is a prominent septal knuckle. Global left ventricular wall motion and contractility are within normal limits. There is normal left ventricular systolic function. The estimated ejection fraction is 60-65%. Abnormal left ventricular diastolic function is observed. Abnormal left ventricular diastolic filling is observed, consistent with impaired relaxation. Left Atrium: The left atrial chamber size is normal. No thrombus is visualized within the left atrium.The left atrial appendage is large. There is no thrombus visualized in the left atrial appendage. Right Ventricle: The right ventricular cavity size is normal. The right ventricular global systolic function is normal. Right Atrium: The right atrial cavity size is normal. A prominent eustachian valve is noted in the right atrium. Interatrial septum appears intact without evidence of shunting. The bubble study is negative. Three bubble studies were performed with suboptimal opacification of the right atrium. A patent foramen ovale is not demonstrated with color Doppler and agitated contrast. Aortic Valve: The aortic valve is trileaflet. The aortic valve leaflets are mildly thickened. There is no evidence of aortic regurgitation. There is no evidence of aortic stenosis. Mitral Valve: The mitral valve leaflets are mildly thickened. There is mild mitral regurgitation. There is no evidence of mitral stenosis. Tricuspid Valve: The tricuspid valve structure is not well visualized. There is trace tricuspid regurgitation. Pulmonic Valve: The pulmonic valve structure is not well visualized. There is no evidence of pulmonic regurgitation. Pericardium: The pericardium appears normal. There is no significant pericardial effusion. Aorta: There is no dilatation of the ascending aorta. There is no dilation of the aortic root. There is moderate atherosclerotic plaque seen in the aortic arch, the proximal descending aorta, and the descending aorta. One focal lesion measures 0.6 cm x 0.4 cm. Pulmonary Artery: The main pulmonary artery is not well visualized. Venous: The inferior vena cava appears normal. The pulmonary veins appear normal. 3 of 4 pulmonary veins are visualized. The superior vena cava appears normal. TANVIR Procedures: All standard views were attempted within the limitations of patient tolerance and safety. History and physical as well as labs were reviewed. The patient was in a fasting state. Risks and benefits of the procedure, including alternatives, were discussed and written informed consent was obtained. The patient and/or their health care sales representative health insurance expressed understanding of the procedure, risks and benefits. Baseline and continuous monitoring of blood pressure, heart rate, pulse oximetry and heart rhythm was performed throughout the procedure. The appropriate time-out procedure was performed as per [facility] protocol. The patient was placed in the left lateral decubitus position. The patient's posterior pharynx was anesthetized with 20ml of 2% viscous lidocaine. The patient received IV Midazolam with a total dose of 6 mg. The patient received IV Fentanyl with a total dose of 50 mcg. An oral bite block was inserted for protection of oral dentition. The multiplane transesophageal echocardiogram probe was inserted through the posterior oropharynx and advanced into the esophagus without difficulty. Multiple 2D images were obtained of the heart and its related structures. Color flow Doppler was used for evaluation. Spectral Doppler was also used. The transgastric view was not obtained as it was contraindicated by the patient's medical condition. The atrial septum was interrogated with color flow Doppler. At the conclusion of the procedure the probe was removed with continuous suction without complications. The patient tolerated the procedure with no apparent complications. Contrast: Normal saline was used as contrast for the bubble study. Images 57, 65, and 68. Conclusions Global left ventricular wall motion and contractility are within normal limits. The estimated ejection fraction is 60-65%. Abnormal left ventricular diastolic filling is observed, consistent with impaired relaxation. No thrombus is visualized within the left atrium. The left atrial appendage is large. There is no thrombus visualized in the left atrial appendage. Three bubble studies were performed with suboptimal opacification of the right atrium. The bubble study is negative but suboptimal. Interatrial septum appears intact by 2d and colorflow without evidence of shunting. A patent foramen ovale is not demonstrated with color Doppler and agitated contrast. The aortic valve leaflets are mildly thickened. There is trace tricuspid regurgitation. There is mild mitral regurgitation. There is moderate atherosclerotic elongated plaque seen in the aortic arch, the proximal descending aorta, and the descending aorta. One focal lesion measures 0.6 cm x 0.4 cm. Similar to the prior echo of 9..2018 Measurements Name Value Normal Range Aortic Annulus 2.1 cm (1.4 - 2.6) Ao root diameter (2D) 3.3 cm (2.1 - 3.5) Ascending Ao 3 cm (2.1 - 3.4) Name Value Normal Range MV E-wave Vmax 0.64 m/sec - MV deceleration time 263 msec - MV A-wave Vmax 0.83 m/sec - MV E:A ratio 0.77 ratio -
--- NOTE | 2017-12-06 22:33 | PN ---
NEUROLOGY PROGRESS NOTE: DATE OF SERVICE: 12/06/17 PRIMARY PROVIDER: Sary Lemos NP/Kris. REASON FOR NEUROLOGY FOLLOWUP: History of stroke. SUBJECTIVE: The patient is currently on his way to get a transesophageal echo. His stated that he continues to show improvement. He is in no distress. He denied any worsening vertigo, focal weak ness, or paresthesias. MEDICATIONS: Unchanged from the previous day. LABORATORY DATA: No new laboratory studies. TRANSESOPHAGEAL ECHO REPORT: Global left ventricular wall motion and contractility are within normal limits. The estimated ejection fraction is 60%-65%. Abnormal left ventricular diastolic filling is observed. There is no thrombus visualized within the left atrium. The left atrial appendage is lar ge. There is no thrombus in the left atrial appendage. Interatrial septum appears to be intact. Th ere is moderate atherosclerotic, elongated plaque seen in the aortic arch, the proximal descending ao rta, and the descending aorta. One focal lesion measuring 0.6 cm x 0.4 cm. PHYSICAL EXAMINATION: Vitals: Temperature 98.3, pulse is 62, respiratory rate of 20, oxygen saturat ion 97, blood pressure 129/74. The patient is sitting comfortably in bed with no complaints. He is well nourished, well developed. He has his eyes closed. He moves all 4 extremities to command. I c ould not do a formal examination since the patient was on his way to get a transesophageal echo. ASSESSMENT AND RECOMMENDATIONS: Mr. Jhoan Adames is a 77-year-old man, who has a left basal ganglia i nfarction, who presented with sudden onset vertigo and ataxia on 12/02/17. I suspect the patient had new strokes mostly involving the right parietal region and a small stroke that was not dictated by t radiologist, but appears to be in the left middle cerebellar peduncle. 1. Vertigo, tinnitus, left hearing loss, most likely related to benign positional paroxysmal vertigo . 2. New right parietal and left cerebellar peduncle ischemic infarction. I suspect this is contribut ing to the patient's left gait ataxia. We did a transesophageal echocardiogram today that showed an atherosclerotic disease in the aortic arch. This could be a source to the cardio emboli. He is on du al antiplatelet therapy for now. He is on statin therapy. He will be going to rehab. He will follo w up with Dr. Prado on discharge. [id number]/CPS #: [id number]
--- NOTE | 2017-12-07 05:22 | DS ---
CC: Dr. Max Newsome; Dr. Ottoniel Prado; Dr. Ronen Bonner * DISCHARGE SUMMARY: DATE OF ADMISSION: 12/02/17 DATE OF DISCHARGE: 12/06/17 PRIMARY CARE PROVIDER: Dr. Max Newsome. OUTPATIENT NEUROLOGIST: Dr. Ottoniel Prado. CONSULTING METEOROLOGIST IN CHARGE: Dr. Ronen Bonner. MY ATTENDING WHILE IN THE HOSPITAL: Dr. Chino Marshall.* (DICTATED BY KELVIN ALVAREZ) PRIMARY DISCHARGE DIAGNOSES: 1. Dizziness. 2. History of cerebrovascular accident. SECONDARY DISCHARGE DIAGNOSES: 1. Hypertension. 2. Hyperlipidemia. 3. Chronic back pain. 4. Hypothyroidism. 5. Prostate cancer. STUDIES DONE WHILE IN THE HOSPITAL: Electrocardiogram from 12/02/17 shows normal sinus rhythm, no ST segment abnormalities, T-wave inversion in lead III, possible left atrial enlargement, QTc of 428, IN of 254. No significant abnormalities. No blocks, hypertrophy. Repeat EKG from 12/03/17 shows no significant changes from previous day, rate of 55, QTc of 439. Brain MRI from 12/03/17 read as there has been interval involvement of a punctate focus of restricted diffusion within the right posterior frontal lobe consistent with subacute nonhemorrhagic infarct. There is a questionable abnormal diffusion within the superior parietal lobes bilaterally, this may be artifact. Again, noted is a nonhemorrhagic infarct in the left basal ganglia, the presence of the infarct in multiple vascular territories suggest embolic phenomenon. Chronic small vessel ischemic changes. Transthoracic echocardiogram from 12/03/17 read as left ventricular chamber size is normal. Mild concentric left ventricular hypertrophy is observed. There is increased basal septal hypertrophy noted without evidence of an increased gradient across the left ventricular outflow tract, septal knuckle measures 1.4 cm. Estimated ejection fraction is 55% to 60%. There is no consistent Doppler evidence of diastolic dysfunction, but bubble study is negative. 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 There is mild mitral regurgitation. There is trace to mild tricuspid regurgitation. No pulmonary hypertension is noted. Trace to mild pulmonic regurgitation. There is mild dilatation in the ascending aorta at 3.7 cm. Transesophageal echocardiogram from 12/06/17 read as global left ventricular wall motion and contractility within normal limits. His estimated ejection fraction is 60% to 65%, abnormal left ventricular diastolic filling is observed consistent with impaired relaxation. No thrombus was visualized within the left atrium. Left atrial appendage is large. No thrombus is visualized in the left atrial appendage. Three bubble studies were performed with suboptimal opacification of the right atrium. Bubble study is negative. Interatrial septum appears intact by 2D and color flow without evidence of shunting. Patent foramen ovale is not demonstrated with color Doppler and agitated contrast. Aortic valve leaflets are mildly thickened. There is trace tricuspid regurgitation. There is mild right mitral regurgitation, moderate atherosclerotic plaque seen in the aortic arch, the proximal ascending aorta, and the descending aorta. One focal lesion measures 0.6 cm to 0.4 cm similar to prior echo from 12/04/17. MEDICATIONS AT DISCHARGE: 1. Gabapentin 200 mg p.o. at bedtime. 2. Voltaren one application topical q.i.d. as needed. 3. Vitamin D 5000 units p.o. daily. 4. Flaxseed oil 1 cap p.o. daily. 5. Glucosamine chondroitin 1 tab p.o. daily. 6. Multivitamin 1 tab p.o. daily. 7. Melatonin 1 tab p.o. at bedtime. 8. [place]-3 fatty acid 1000 mg p.o. daily. 9. Levothyroxine 88 mcg p.o. daily. 10. Clopidogrel 75 mg p.o. daily. 11. Aspirin 81 mg p.o. daily. 12. Rosuvastatin 20 mg p.o. at bedtime. 13. PreserVision 1 cap p.o. b.i.d. 14. Tylenol 650 mg p.o. q.4 hours as needed. 15. Diazepam 2.5 mg p.o. q.8 hours as needed for dizziness. New medications at discharge: 1. Tylenol. 2. Diazepam. HOSPITAL COURSE: This is a brief summary of the patient's presentation. For more details, please see the history and physical from Blayne Cardona NP on 06/16 as well as the consultation by Dr. Tre Burton on 12/03/17. In brief, the patient is a 77-year-old male with past medical history significant for the above, who recently was admitted to institution for a CVA affecting his basal ganglia, which presented with word finding difficulties. The patient had sudden onset of vertigo the morning of his presentation with a severe spinning sensation as well as bilateral horizontal diplopia. The patient had no recent illnesses. He was having trouble ambulating, worse towards the right side. The patient has had previous episodes of vertigo but this was the most severe and did not respond to Reglan, meclizine, improves only slightly with Valium. The patient had been taking his dual antiplatelet therapy. The patient was admitted to the hospital with concern for central process, however, possibly also BPPV. The patient had a CTA, which showed no significant stenosis but atherosclerosis in the carotid arteries. The patient had persistent vertigo on 12/03/17. Based on the patient's MRI findings, there was concern for embolic process, however, he had no evidence of atrial fibrillation on telemetry monitoring. The patient's TANVIR showed non-positive bubble study. The patient had no significant vital sign abnormalities. The patient had been seen by physical therapy and identified to have needs. The patient had normal hemoglobin A1c. It was believed to be a peripheral vertigo and the patient had an Jeet maneuver performed, which significantly improved his vertigo though is still some present but it diminished significantly. The patient also had hearing loss and tinnitus, however, given that his vertigo responded to an Jeet maneuver, this is unlikely to represent Meniere's disease. Patient has slight leukocytosis while in the hospital but no other significant signs indicating infection. The patient had elevated cholesterol of 62 and a HDL cholesterol of 39.9. The patient was evaluated by [facility] and believed to have needs. The patient on 12/06/17 had a transesophageal echocardiogram, which showed no PFO, no clot in the left atrial appendage, and atherosclerosis in the aorta but no other significant findings. The patient was stable and amenable for discharge to [facility] on 12/06/17. PHYSICAL EXAM ON THE DAY OF DISCHARGE: General: The patient is a 77-year-old male who appears stated age and sitting comfortably in bed, in no acute distress. Vital signs at the time of discharge: Temperature 98.3, pulse rate 63, respiratory rate 20, oxygen saturation 97% on room air, blood pressure 129/ 74. HEENT: Head: Normocephalic, atraumatic. Sclerae anicteric. No conjunctival injection. Nasal mucosa moist. Oral mucosa moist. No pharyngeal erythema, discharge, or exudate. Neck: Supple, nontender. No lymphadenopathy. No carotid bruits auscultated. No JVD. Cardiac: Regular rate and rhythm. No clicks, murmurs, gallops, or rubs. Pulses are 2+ bilaterally dorsalis pedis, posterior tibialis and radial areas. Respiratory: Clear to auscultation bilaterally. No wheeze, rales or rhonchi. Good air exchange bilaterally. Abdomen: Soft, nontender, nondistended. Bowel sounds present, normoactive in all 4 quadrants. No hepatosplenomegaly. No abdominal bruits auscultated. No hepatojugular reflux. Skin: Clean, dry, and intact. No rash. Neuro: The patient had 4 beats of horizontal nystagmus with leftward gaze. No other significant nystagmus. No diplopia or vertigo with extraocular movement. Cranial nerves II through XII otherwise intact. No other focal deficits, hypoactive reflexes throughout. Alert and oriented x3. Cerebellar testing performed without difficulty. Normal gait. DISCHARGE PLAN: The patient will be discharged to [facility], where he will have vestibular PT as well as physical therapy and occupational therapy to address his other deficits. The patient should maintain on dual antiplatelet therapy until one month from when it was previously started, which was on 11/27/17. The patient should have valium available as needed for his vertigo as this did work well. The patient stated that the meclizine made him more dizzy. The patient's dizziness almost resolved on the day of his discharge. The patient should follow up with Dr. Prado to discuss his post stroke care as well as his vertigo and the patient should have Jeet maneuvers repeated as needed. There should be consideration given for the patient to have evaluation by ENT for the possibility of Meniere's disease and treatment for this. The patient should have a Holter monitor, which appears it already has been ordered through his primary care provider to look for paroxysmal atrial fibrillation given his multiple infarcts along different territories. The patient should return to hospital for alarming symptoms such as chest pain, shortness of breath, severe dizziness. The patient should engage in activities as tolerated and have a heart healthy diet without caffeine. TIME SPENT: Approximately 60 minutes were spent on the discharge of this patient, 30% of which was spent [id number] with the patient obtaining history and physical and discussing treatment plan. KELVIN ALVAREZ [id number]/[facility] #: [id number] WARREN
== END 2017-12-06 14:20 | DRG 66 ==
LOC: ED 12:54 → MEDTELE 19:29 → OBSVTOIN 12-04 11:39
PROVIDERS: ADMIT Internal Medicine; ATTEND Student in an Organized Health Care Education/Training Program
PROC: B24BZZ4 Ultrasonography of Heart with Aorta, Transesophageal (ICD-10-PCS; principal; 2017-12-06 08:00)
DX: I63.9 Cerebral infarction, unspecified (principal); I10 Essential (primary) hypertension; E78.5 Hyperlipidemia, unspecified; G89.29 Other chronic pain; M54.9 Dorsalgia, unspecified; E03.9 Hypothyroidism, unspecified; E73.9 Lactose intolerance, unspecified; K21.9 Gastro-esophageal reflux disease without esophagitis; M48.00 Spinal stenosis, site unspecified; G57.93 Unspecified mononeuropathy of bilateral lower limbs; H53.2 Diplopia; R53.83 Other fatigue; D72.829 Elevated white blood cell count, unspecified; R26.0 Ataxic gait; H91.92 Unspecified hearing loss, left ear; H55.00 Unspecified nystagmus; I08.3 Combined rheumatic disorders of mitral, aortic and tricuspid valves; I77.810 Thoracic aortic ectasia; Z79.82 Long term (current) use of aspirin; Z85.46 Personal history of malignant neoplasm of prostate; Z90.79 Acquired absence of other genital organ(s); Z90.49 Acquired absence of other specified parts of digestive tract; Z88.2 Allergy status to sulfonamides; Z82.3 Family history of stroke; Z80.0 Family history of malignant neoplasm of digestive organs; I69.328 Other speech and language deficits following cerebral infarction; I69.398 Other sequelae of cerebral infarction; Z85.828 Personal history of other malignant neoplasm of skin; Z83.52 Family history of ear disorders; Z72.89 Other problems related to lifestyle; Z79.02 Long term (current) use of antithrombotics/antiplatelets
CPT/HCPCS: 36415; 70551; 80048; 80061; 83036; 84443; 85025; 85027; 85610; 85730; 93005; 93306; 93312; 93325; 96374; 99156; 99157; 99283; A9270-GY; G0378; G8978-GP-CL; G8979-GP-CI; G8987-GO-CJ; G8988-GO-CI; J1644; J2250; J2310; J2405; J2765; J3010; J3490; J7509

== ENCOUNTER 2017-12-06 13:13 | Inpatient (IN) | payer MEDICARE, BC ==
--- OUTSIDE RECORDS SUMMARY | 2017-12-06 14:25 | XMS REPORT ---
:1940 External Reference #:[id number] [facility] Address [address] [facility] [address] [facility] [place] [address] Phone [phone] Care Team Providers Name Role Phone Max Newsome MD Primary Care Physician Unavailable Payers Type Date Identification Numbers Payment Provider Subscriber Medicare Primary Effective: Policy Number: Medicare Frandy Adames 2004 [id number] PayID: [id number] [address] [place] [address] Medigap Part B Policy Number: [id number] [facility] W hJoan Adames Group Number: [id number] [address] PayID: [id number] [place] [address] Health Maintenance Effective: Policy Number: [place] [facility] [place] Frandy Blunt [place] 03/20/2007 [id number] Expires: 04/01/2008 PayID: [id number] [address] [address] [place] [address] Problems Date Description Provider Status Onset: 11/02/2011 [...] Marital Status Lives With Occupation Retired From [employer] Cigarette Use Never Smoked Cigarettes ETOH Use [...] s affected area every pm and prn [place]-3 Fish / Active Capsules 1250mg 1 po [...] - s Tab 1H S. 08/04/ 2008 [place] Megan Levitra 07/29/ Hx Tablets 10mg 9tabs [...] 5mg Complex 2015 Saccharomyces 00/ Hx Solution 21189Vch/ Unknown Cerevisiae 0000 - ML Extract 2015 [place] Thyroid / Hx Tablets 15mg 1 tab by Unknown 0000 - mouth every 2016 Medications Administered in Office Medication Date Status Form Strength Qnty SIG Indications Ordering Provider Depomedrol Administered Injection Dirk Tanya, 40MG Marcela Guzman Celestone 3 Administered Injection Amria D mg and 3mg 014 Megan Cloud [...] [address]: Neri Leavitt MD Acct: [id number] Unit: [id number] AGE: 76 Location: OR Re07/05/16 SEX: M Status: REG [facility] SPEC: [id number] MARYAM: 07/05/16- SUBM DR: Neri Leavitt MD REQ: [id number] RECD: 07/05/16 STATUS: SOUT _ ORDERED: LEVEL [...] yellow irregular focally purulent portion of fat. District Agent sections, one cassette. Signed (signature on file) Tavares Vieyra MD 1202 END OF REPORT * ML=Testing performed at Main Lab DEPARTMENT OF PATHOLOGY, [address] [place] [address] Tavares Vieyra M.D. Director [facility] # [id number] 2 Not diagnostic. Supplemental testing ordered by reflex. Test Performed by: [address] [address] Casket Coverer: Markie Brunson III, M.D. 3 RESULT: p93, [...] screening test (e.g., EIA). Test Performed by: [address] [address] Casket Coverer: Markie Brunson III, M.D. Procedures Date CPT Code Description Status Comment 11/29/2017 68987 ECHO Transthoracic, Real-Time Completed 2D With Doppler And Color Flow 03/18/2017 87743 EKG Tracing & Interpretation Completed 07/05/2016 36937 Laparoscopy, Surgical, Completed Appendectomy 06/25/2016 Diabetic Retinal Eye Exam Completed Document: 06/25/16 - Consult Ophthalmology-Mickey 03/28/2016 83736 EKG Tracing & Interpretation Completed 10/19/2015 56476 Inject/Drain Joint/Bursa Major Completed W/O US 05/31/2015 93495 EKG Tracing & Interpretation Completed 01/07/2014 92954 EKG Tracing & Interpretation Completed 11/03/2013 10027 Holter Monitor Review (24 hr) Completed review & interp only 10/27/2013 13323 ECHO Transthorasic Realtime 2D Completed W Doppler & Color Flow Hosp 10/27/2013 63145 EKG, Interpretation Only Completed 06/09/201351645 Injection Single Tendon Completed Origin/Insertion 02/10/201312049 Inject/Drain Joint/Bursa Major Completed W/O US 02/10/201312897 Injection Single Tendon Completed Origin/Insertion 11/12/2012 97858 Rad Exam; Foot Comp Completed 07/14/2012 47844 EKG Tracing & Interpretation Completed 06/19/201212709 Injection Single Tendon Completed Origin/Insertion 06/19/2012 60536 Rad Exam; Elbow, Comp Completed 06/11/2012 04237 ECHO Transthoracic, Real-Time Completed 2D With Doppler And Color Flow 11/02/2011 15348 EKG Tracing & Interpretation Completed 11/01/2011 12794 ECHO Transthoracic, Real-Time Completed 2D With Doppler And Color Flow 12/08/2010 73717 Treadmill Interp/Report Only Completed 12/08/2010 85656 Stress Test Supervsn W/Out I/R Completed 12/08/2010 86515 EKG, Interpretation Only Completed 04/03/2010 69100 EKG Tracing & Interpretation Completed 03/07/2010 89773 ECHO Transthoracic, Real-Time Completed 2D With Doppler And Color Flow 09/09/2008 75375 EKG Tracing & Interpretation Completed 09/06/2008 34137 ECHO Transthoracic, Real-Time Completed 2D With Doppler And Color Flow 09/12/2007 72672 Holter Monitor Completed 09/12/2007 14320 Holter Monitor Completed 09/04/2007 26846 Color Doppler Completed 09/04/2007 18687 Pulse Doppler & Continuous Wave Completed 09/04/2007 54471 Pulse Doppler & Continuous Wave Completed 09/04/2007 67635 Echocardiogram Completed 09/02/2007 49302 ECHO/Stress Completed 09/02/2007 22572 ECHO/Stress Completed 09/02/2007 25316 Stress Test Completed 09/02/2007 18889 Stress Test Completed 09/02/2007 55896 Stress Test Completed 08/05/2007 99255 EKG Tracing & Interpretation Completed 08/05/2007 68335 EKG Tracing & Interpretation Completed Encounters Type Date Location Provider CPT E/M Dx Office Visit 03/18/2017 4:00p [facility] Margie Tsang, 25725 E78.4 Megan R94.31 Office Visit 07/17/2016 10:45a [facility] Ottoniel Prado, 59394 G60.8 Services Of Supervisor Electronic Coils M.D. Office Visit 07/05/2016 7:00a [facility] Antoine Sanders, 82935 K35.80 [facility] Office Visit 03/28/2016 3:20p [facility] Qutaybeh S. 41850 E78.4 Megan Tsang R94.31 Office Visit 10/19/2015 1:30p [facility] Tony Martínez M.D. 97658 M76.32 Em Office Visit 05/31/2015 1:20p [facility] Qutaybeh S. 61733 E78.4 Megan Tsang I34.0 R94.31 Office Visit 07/27/2014 2:45p [facility] Ottoniel Prado, 39423 356.8 Services Of Supervisor Electronic Coils M.D. Office Visit 01/07/2014 10:20a [facility] Qutaybeh S. 98658 272.4 Megan Tsang 435.9 794.31 458.9 Office Visit 10/27/2013 1:59p [facility], Kellie Quiros, 39057 435.9 Hospitalists Megan 272.4 355.9 Office Visit 10/26/2013 1:58p [facility], Betzaida Mar, 05528 435.9 Hospitalists N.PEnedelia 272.4 355.9 Office Visit 10/26/2013 9:31a [facility] Ciera Farfan M.D. 40020 435.9 Services Of Supervisor Electronic Coils Office Visit 06/09/2013 10:00a [facility] Maria D 48415 726.32 Em Cloud M.D. Office Visit 04/21/2013 3:00p [facility] Ottoniel Prado, 46854 356.8 Services Of Supervisor Electronic Coils M.D. Office Visit 02/10/2013 10:00a [facility] Maria D 91988 726.31 Em Cloud M.D. 726.32 Office Visit 12/19/2012 9:30a [facility] Angelo Baltazar, 98688 727.06 Em Guzman Office Visit 12/19/2012 9:00a [facility] Maria D 15901 726.31 Em Cloud M.D. Office Visit 11/12/2012 1:00p [facility] Angelo Baltazar, 75393 727.06 Em Guzman Office Visit 07/14/2012 2:00p [facility] Qutaybeh S. 12601 424.0 Megan Tsang 424.2 272.2 Office Visit 06/19/2012 11:30a [facility] Amaris Sales 82044 726.31 Of Em Guzman Office Visit 11/02/2011 10:00a [facility] Qutaybeh S. 92781 794.31 Megan Tsang 424.0 424.2 272.2 Office Visit 12/08/2010 12:30p [facility] Qutaybeh S. Maghaydah, 74989 794.31 M.D. 786.50 424.0 424.2 272.4 Office Visit 04/03/2010 10:20a [facility] Qutaybeh S. Maghaydah, 85580 424.0 M.DEnedelia 424.2 272.4 Office Visit 09/09/2008 2:40p [facility] Qutaybeh S. Maghaydah, 09641 424.0 M.D. 272.4 Office Visit 09/16/2007 11:10a [facility] Qutaybeh S. Maghaydah, 37691 272.4 M.D. 786.05 794.31 424.0 424.2 Office Visit 08/05/2007 12:40p [facility] Qutaybeh S. Maghaydah, 44095 272.4 M.D. 786.05 794.31 Plan of Care Future Appointment(s):12/05/2017 8:30 am - Nurse Visit cc at [facility]12/04/2017 10:00 am - Nurse Visit cc at [facility]01/07/2018 11 :30 am - Ottoniel Prado M.D. at [facility]11/27/2017 - Ottoniel Prado M.D.G60.8 Other hereditary and idiopathic wuvztoxjgfjkM32.4 Other rsfginfpqsdblhB57.02 Occlusion and stenosis of left middle cerebral arteryFollow up:Dr. Newsome last office note 1-2 monthsRecommendations:take aspirin and Plavix until December 22 then stop aspirin and continue OhqymnJ43.320 Aphasia following cerebral infarctionNew Therapy:Speech TherapyFollow up:No surgery for three months from your stroke unless it is urgent
[2017-12-06] MEDS ORDERED: Magnesium Hydroxide LIQ* 30 ML UDC PO PRN (14:47)
[2017-12-06] MEDS ORDERED: Senna TAB PO PRN (14:47)
[2017-12-06] MEDS ORDERED: Diazepam TAB(*) 5 MG PO PRN (14:57)
[2017-12-06] MEDS: Atorvastatin* 40 MG TAB PO SCH (17:02)
[2017-12-06] MEDS: Gabapentin CAP(*) 100 MG PO SCH (21:19)
[2017-12-06] MEDS: Melatonin 3 MG TAB PO PRN (21:24)
[2017-12-06] MEDS: Docusate CAP* 100 MG PO SCH (21:36)
[2017-12-06] MEDS: PTO:Multivitamins/Minerals AREDS2 cap PO SCH (21:36)
[2017-12-06] MEDS: Heparin VIAL(*) 5000 UNITS/ML VIAL (FIVE THOUSAND) SUBCUT SCH (21:36)
--- NOTE | 2017-12-06 22:58 | HP ---
ADMISSION HISTORY AND PHYSICAL: DATE OF ADMISSION: 12/06/17 REASON FOR ADMISSION: Cerebellar stroke; globus pallidus stroke. HISTORY OF PRESENT ILLNESS: Jhoan Adames is a 77-year-old white male. He has a history of hypertension and hyperlipidemia. The patient presented to the emergency room on 11/16/17. He was complaining of 3 days of a facial droop and difficulty finding words. The patient was referred to the emergency room by his primary care doctor. He had a CAT scan of his brain that did not show any acute changes. He had a CTA of his head that did not show any aneurysm or vascular malformation. The patient was recommended to be admitted to the hospital, but he refused admission. He was discharged home on an aspirin. As an outpatient, it was arranged for him to have an MRI of his brain. MRI showed a new onset infarct in the globus pallidus. It was recommended that the patient start Plavix as well as aspirin. He again did not want to be admitted to the hospital so was discharged home on Plavix and aspirin. That was on 11/21/17. On 12/02/17, the patient went to bed in his usual state of health. He woke up 12/03/17 with extreme vertigo. He felt like the room was spinning. The patient was also complaining of double vision, but no nausea or vomiting. He came back to the hospital. It was recommended that he have a new MRI. The patient had a new MRI of his brain on 12/03/17. There appeared to be a new infarct in the right posterior frontal lobe. There may have also been a new infarct in the left cerebellum. Because of the multiple strokes, it was felt that he would need a transesophageal echo. He also would probably need a Holter monitor or loop recorder to look for atrial fibrillation. It was recommended he continue on aspirin and Plavix plus Lipitor. It was felt that the vertigo was benign positional vertigo, but might possibly have been related to the cerebellar stroke. He was tried on meclizine, but did not like this and asked for to be stopped. Valium made him very sleepy. The patient did have a transesophageal echo done today. There was no evidence of any thrombus visualized within the left atrial appendage. Three bubble studies were performed with suboptimal results, but the bubble study was negative. There was no evidence of shunting and a PFO was not demonstrated. The patient had increasing difficulty ambulating as a result of his balance difficulties. He was felt to have physical therapy and occupational therapy as well as speech therapy needs. He is now being admitted for inpatient rehab so that he might return to independent living. PAST MEDICAL HISTORY: Significant for hypertension and hyperlipidemia. He has a history of prostate cancer. He has undergone a prostatectomy as well as Sheila fundoplication and he has had back surgery as well. CURRENT MEDICATIONS: Include: 1. Aspirin, Plavix, and Lipitor as mentioned previously. 2. He is on Neurontin at bedtime. 3. Synthroid in the morning. 4. Heparin and Valium as needed, although he does not like to take it. ALLERGIES: Include SULFA DRUGS. SOCIAL HISTORY: He is a nonsmoker. He normally drinks about half a glass of wine at bedtime. He has difficulty sleeping. He was retired. Prior to admission, he lives with his in a 2-story house. Bedroom and bath are upstairs. REVIEW OF SYSTEMS: The patient reports no current shortness of breath. He does report feeling tired. PHYSICAL EXAM: The patient's temperature is 98.3, blood pressure is 121/71, pulse 77, respirations 15. HEENT: His extraocular movements are intact. Tongue is midline. Neck is supple. Lungs sound clear to auscultation bilaterally. Heart sounds are regular. S1, S2 are audible. Abdomen: Soft and nontender. His extremities showed normal muscle bulk and tone. Peripheral pulses were intact. Neurologic: The patient was awake. He was oriented. His muscle strength appeared to be pretty good in both upper and lower extremities on both the right and the left. He did seem to have some right-sided dysmetria with zifymr-hf-aesy testing. Functional Exam: The patient transfers with moderate amount of assistance due to balance difficulties. ASSESSMENT: The patient with multiple infarcts in the past 2 weeks including left globus pallidus, left cerebellum, right frontal lobe. PLAN: Integrate him into comprehensive and therapeutic rehab program with the following goals: 1. Physical Therapy will work with the patient. They are going to work on functional transfer training, ambulation training with a walker. 2. Occupational Therapy will see the patient and work on his activities of daily living including toilet transfers. 3. Speech Therapy will work with the patient, work on his aphasia. 4. Continue dual-antiplatelet therapy that is aspirin and Plavix for the next 30 days at least. 5. Heparin for DVT prophylaxis. 6. SSRIs such as Prozac as indicated. 7. director of housing and energy services will be closely involved to make sure that any services and equipment that the patient requires in place prior to discharge. 8. For his vertigo, we will continue Valium p.r.n., although he does not like to take it. 9. For his back pain, we will continue the gabapentin. 10. For hypothyroidism, continue Synthroid. 11. Family training is indicated. 12. Home with appropriate services. ESTIMATED LENGTH OF STAY: Two weeks. [id number] #: [id number] [place]
[2017-12-07] MEDS: Heparin VIAL(*) 5000 UNITS/ML VIAL (FIVE THOUSAND) SUBCUT SCH ×3 (06:09→20:58)
[2017-12-07] MEDS: Levothyroxine TAB* 88 MCG TAB PO SCH (06:09)
[2017-12-07] MEDS: Aspirin EC TAB* 81 MG TAB.EC PO SCH (09:01)
[2017-12-07] MEDS: Multivitamins/Minerals TAB PO SCH (09:01)
[2017-12-07] MEDS: Clopidogrel TAB* 75 MG PO SCH (09:01)
[2017-12-07] MEDS: Docusate CAP* 100 MG PO SCH ×2 (09:01→21:01)
[2017-12-07] MEDS: PTO:Multivitamins/Minerals AREDS2 cap PO SCH ×2 (09:06→21:01)
[2017-12-07] MEDS ORDERED: DiMENhydriNATE TAB* 50 MG TAB PO PRN (14:53)
[2017-12-07] MEDS: Atorvastatin* 40 MG TAB PO SCH (16:58)
--- NOTE | 2017-12-07 20:03 | PN ---
Progress Note Date of Service: 12/07/17 Note: Frandy DEL RIO was visited. Therapy notes read and reviewed. Vertigo remains a problem. He did not like Meclizine and does not want Valium. He is willing to try Scopolamine. He has aphasia from his multiple CVAs. On DAPT Current Medications: Active Medications Generic Name Dose Route Start Last Admin Trade Name Freq PRN Reason Stop Dose Admin Aspirin 81 mg 12/07/17 09:00 12/07/17 09:01 Aspirin Ec Tab* PO 81 mg DAILY ANA M Administration Atorvastatin Calcium 40 mg 12/06/17 17:00 12/07/17 16:58 Lipitor* PO 40 mg 1700 ANA M Administration Clopidogrel Bisulfate 75 mg 12/07/17 09:00 12/07/17 09:01 Plavix Tab* PO 75 mg DAILY ANA M Administration Diazepam 2.5 mg 12/06/17 14:57 Valium Tab(*) PO Q8H PRN VERTIGO Dimenhydrinate 50 mg 12/07/17 14:53 Dramamine Tab* PO Q6H PRN . Docusate Sodium 100 mg 12/06/17 21:00 12/07/17 09:01 Colace Cap* PO 100 mg BID ANA M Administration Gabapentin 200 mg 12/06/17 21:00 12/06/17 21:19 Neurontin Cap(*) PO 200 mg BEDTIME ANA M Administration Heparin Sodium (Porcine) 5,000 units 12/06/17 22:00 12/07/17 14:44 Heparin Vial(*) SUBCUT 5,000 units Q8HR ANA M Administration Levothyroxine Sodium 88 mcg 12/07/17 06:00 12/07/17 06:09 Synthroid Tab* PO 88 mcg DAILY@0600 ANA M Administration Magnesium Hydroxide 30 ml 12/06/17 14:47 Milk Of Magnesia Liq* PO Q6H PRN CONSTIPATION Melatonin 3 mg 12/06/17 14:56 12/06/17 21:24 Melatonin PO 3 mg BEDTIME PRN Administration SLEEP Protocol Multivitamins/Minerals 1 cap 12/06/17 21:00 12/07/17 09:06 Preservision Areds 2 PO 1 cap BID ANA M Administration Multivitamins/Minerals 1 tab 12/07/17 09:00 12/07/17 09:01 Theragran/Minerals Tab* PO 1 tab DAILY ANA M Administration Scopolamine 1 patch 12/07/17 20:00 Transderm-Scop 1.5 Mg Patch* TRANSDERM Q72H ANA M Senna 2 tab 12/06/17 14:47 Senokot Tab* PO BEDTIME PRN CONSTIPATION Vital Signs: Vital Signs Temp Pulse Resp BP Pulse Ox 98.1 F 67 20 137/76 97 12/07/17 16:04 12/07/17 16:04 12/07/17 17:10 12/07/17 16:04 12/07/17 17:10 Exam: HEENT: EOMI LUNGS: CLear HEART: Reg rhythm ABDOMEN: Soft, +BS EXTREMITIES: Normal tone NEUROLOGIC: some dysmetria. Strength pretty close to 5/5 Assessment/Plan: 1. Multiple CVAs including Left cerebellar CVA and globus pallidus CVA: PT/OT/ [facility] 2, Vertigo: Neurology felt this was BPPV, unclear if cerebellar CVA contributing. Try Scopolamine 3. DVT Prophylaxis: Heparin S/Q 4. Hypothyroidism: Synthroid 5. Advanced Directives: Full code 6. BPH: was on Flomax at home. Will restart 7. Hypercholesterolemia: wants to take own Crestor. will bring in 12/07/17 19:59
[2017-12-07] MEDS: Scopolamine 1.5 mg* PATCH TRANSDERM SCH (20:59)
[2017-12-07] MEDS: Gabapentin CAP(*) 100 MG PO SCH (21:01)
[2017-12-08] MEDS: Heparin VIAL(*) 5000 UNITS/ML VIAL (FIVE THOUSAND) SUBCUT SCH ×3 (06:22→21:43)
[2017-12-08] MEDS: Levothyroxine TAB* 88 MCG TAB PO SCH (06:22)
--- NOTE | 2017-12-08 08:00 | PN ---
Progress Note Date of Service: 12/08/17 Note: Frandy DEL RIO was visited. Nursing notes read and reviewed. He is tolerating the Scopolamine patch but thinks it is not working. No real side effects. His was asking about an ENT Current Medications: Active Medications Generic Name Dose Route Start Last Admin Trade Name Freq PRN Reason Stop Dose Admin Aspirin 81 mg 12/07/17 09:00 12/07/17 09:01 Aspirin Ec Tab* PO 81 mg DAILY ANA M Administration Atorvastatin Calcium 40 mg 12/06/17 17:00 12/07/17 16:58 Lipitor* PO 40 mg 1700 ANA M Administration Clopidogrel Bisulfate 75 mg 12/07/17 09:00 12/07/17 09:01 Plavix Tab* PO 75 mg DAILY ANA M Administration Diazepam 2.5 mg 12/06/17 14:57 Valium Tab(*) PO Q8H PRN VERTIGO Dimenhydrinate 50 mg 12/07/17 14:53 Dramamine Tab* PO Q6H PRN . Docusate Sodium 100 mg 12/06/17 21:00 12/07/17 21:01 Colace Cap* PO 100 mg BID ANA M Administration Gabapentin 200 mg 12/06/17 21:00 12/07/17 21:01 Neurontin Cap(*) PO 200 mg BEDTIME ANA M Administration Heparin Sodium (Porcine) 5,000 units 12/06/17 22:00 12/08/17 06:22 Heparin Vial(*) SUBCUT 5,000 units Q8HR ANA M Administration Levothyroxine Sodium 88 mcg 12/07/17 06:00 12/08/17 06:22 Synthroid Tab* PO 88 mcg DAILY@0600 ANA M Administration Magnesium Hydroxide 30 ml 12/06/17 14:47 Milk Of Magnesia Liq* PO Q6H PRN CONSTIPATION Melatonin 3 mg 12/06/17 14:56 12/06/17 21:24 Melatonin PO 3 mg BEDTIME PRN Administration SLEEP Protocol Multivitamins/Minerals 1 cap 12/06/17 21:00 12/07/17 21:01 Preservision Areds 2 PO 1 cap BID ANA M Administration Multivitamins/Minerals 1 tab 12/07/17 09:00 12/07/17 09:01 Theragran/Minerals Tab* PO 1 tab DAILY ANA M Administration Scopolamine 1 patch 12/07/17 20:00 12/07/17 20:59 Transderm-Scop 1.5 Mg Patch* TRANSDERM 1 patch Q72H ANA M Administration Senna 2 tab 12/06/17 14:47 Senokot Tab* PO BEDTIME PRN CONSTIPATION Vital Signs: Vital Signs Temp Pulse Resp BP Pulse Ox 98.3 F 66 18 136/67 97 12/08/17 06:25 12/08/17 06:25 12/08/17 06:25 12/08/17 06:25 12/08/17 06:25 Exam: HEENT: EOMI LUNGS: CLear HEART: Reg rhythm ABDOMEN: Soft, +BS EXTREMITIES: Normal tone NEUROLOGIC: some dysmetria. Strength pretty close to 5/5. Mild Aphasia noted. Y/ N not completely accurate Assessment/Plan: 1. Multiple CVAs including Left cerebellar CVA and globus pallidus CVA: PT/OT/ [facility]. ASA/Plavix 2, Vertigo: Neurology felt this was BPPV, unclear if cerebellar CVA contributing. Try Scopolamine 3. DVT Prophylaxis: Heparin S/Q 4. Hypothyroidism: Synthroid 5. Advanced Directives: Full code 6. BPH: was on Flomax at home. Will restart 7. Hypercholesterolemia: wants to take own Crestor. will bring in 12/08/17 08:01
[2017-12-08] MEDS: PTO:Multivitamins/Minerals AREDS2 cap PO SCH ×2 (09:49→21:42)
[2017-12-08] MEDS: Multivitamins/Minerals TAB PO SCH (09:49)
[2017-12-08] MEDS: Clopidogrel TAB* 75 MG PO SCH (09:49)
[2017-12-08] MEDS: Docusate CAP* 100 MG PO SCH ×2 (09:49→21:39)
[2017-12-08] MEDS: Aspirin EC TAB* 81 MG TAB.EC PO SCH (09:49)
[2017-12-08] MEDS: Scopolamine 1.5 mg* PATCH TRANSDERM SCH (14:09)
[2017-12-08] MEDS: PTO:Rosuvastatin (NF) 20 MG TAB PO SCH (17:18)
[2017-12-08] MEDS: Gabapentin CAP(*) 100 MG PO SCH (21:41)
[2017-12-08] MEDS: Melatonin 3 MG TAB PO PRN (21:46)
[2017-12-09] MEDS: Levothyroxine TAB* 88 MCG TAB PO SCH (05:15)
[2017-12-09] MEDS: Heparin VIAL(*) 5000 UNITS/ML VIAL (FIVE THOUSAND) SUBCUT SCH ×3 (05:15→21:18)
[2017-12-09 06:37] LABS: ABS Basophils 0.1 10^3/ul (0-0.2); ABS Eosinophils 0.3 10^3/ul (0-0.6); ABS Lymphocytes 1.6 10^3/ul (1.0-4.8); ABS Monocytes 0.8 10^3/ul (0-0.8); ABS Nucleated RBC 0 10^3/ul; Hematocrit 38 % (42-52); Hemoglobin 13.2 g/dl (14.0-18.0); Lymphocyte % 20.9 % (25-47); Mean Corpuscular HGB Conc 34 g/dl (31-36); Mean Corpuscular Hemoglobin 32 pg (27-31); Mean Corpuscular Volume 92 fL (80-94); Mean Platelet Volume 8.4 um3 (7.4-10.4); Nucleated Red Blood Cells % 0; Platelet Count 167 10^3/ul (150-450); Red Blood Count 4.19 10^6/ul (4.00-5.40); Red Cell Distribution Width 14 % (10.5-15); White Blood Count 7.8 10^3/ul (3.5-10.8)
[2017-12-09 06:55] LABS: EGFR Non-African American 99.2 (>60)
[2017-12-09] MEDS: Clopidogrel TAB* 75 MG PO SCH (08:07)
[2017-12-09] MEDS: Multivitamins/Minerals TAB PO SCH (08:07)
[2017-12-09] MEDS: Docusate CAP* 100 MG PO SCH ×2 (08:07→19:53)
[2017-12-09] MEDS: Aspirin EC TAB* 81 MG TAB.EC PO SCH (08:07)
[2017-12-09] MEDS: PTO:Multivitamins/Minerals AREDS2 cap PO SCH ×2 (08:08→19:53)
--- NOTE | 2017-12-09 13:02 | PMRUTEAM ---
PMRU: Team Meeting Current Status: Nursing: Current Status Skin Deviations [Left Arm] Rash Skin Deviation Description [ - Left Arm] Physical Therapy: Current Status Bed Mobility Assistance Supervision Transfer Moblility Assistance Contact Guard Assist Transfer/Bed Mobility Rolling Walker Recommended Devices Ambulation Assistance Contact Guard Assist Ambulation Assistive Devices Rolling Walker Number of Feet Patient 150 Ambulated Stairs Assistance Contact Guard Assist Stairs Recommended Devices Two Rails Number of Stairs 5 Objective Comments step to pattern ascend/descending stairs, pt looking straight ahead while descending stairs rather than looking down at step due to dizziness Occupational Therapy: Current Status Upper Body Dressing Supervision Lower Body Dressing Min Assist Bathing Contact Guard Assist Toileting Contact Guard Assist Toilet Transfer Contact Guard Assist Shower Transfer Min Assist Eating Independent Rec Therapy: Current Status Summary of Assessment and Pt. was open to conversation - answered questions Clinical Impression appropriately but provided little depth in his responses. Pt. did close his eyes at times throughout conversation but was not sleeping. Pt. states he enjoys his life and was open to continued leisure visits. Treatment Goals Pt. will engage in leisure activities while on the unit. Treatment Plan Provide RT services and encourage involvement. Social Work: Current Status Discharge Plan return home with home care svs and family support Anticipated Discharge Home Destination Discharge With home care svs and family support SPEECH LANGUAGE PATHOLOGY: CURRENT STATUS: Y/N Unreliable. Tends to speak in monosyllables. Aphasia noted with short unemotional responses, some cog-ling difficulties Goals: Physical Therapy: Initial Goals Bed Mobility Assistance Independent Transfer Mobility Assistance Independent Transfer/Bed Mobility Rolling Walker Recommended Devices Ambulation Independent Ambulation Recommended Devices Rolling Walker Ambulation Distance 300 Stairs Assistance Independent Stair Recommended Devices Two Rails Number of Stairs 1 flight Physical Therapy: Updated Goals Transfer/Bed Mobility Rolling Walker Recommended Devices Occupational Therapy: Initial Goals Goals to be Completed in (Days 7-10 days ) Upper Body Bathing Routine Modified Independent with Lower Body Bathing Routine Modified Independent with Upper Body Dressing Routine Independent Lower Body Dressing Routine Modified Independent with Toilet Hygeine and Clothing Modified Independent with Management Routine Toilet Transfer Routine Modified Independent with Tub Transfer Routine Modified Independent with Functional Transfers for ADL Modified Independent with Grooming Routine Independent Feeding Routine Independent Nutrition: Goals Intervention Goals 1. Intake will remain adequate to maintain stable wt (170-175#) 2. Pt will establish regular bowel pattern without constipation/diarrhea Speech: Goals Speech Goal 1 Comprehension Goal 1 Comments correction goal: Pt will use compensatory strategies to demonstrate comprehension of complex , 3-4 part verbal and written information of moderate complexity, 90% accuracy given minimal cueing. STO: Pt will used compensatory strategies to demonstrate comprehension of complex 3-4 part verbal and written information, 80% accuracy, given moderate extra time, and moderate skilled instruction and cueing. Speech Goal 2 Expressive Language Speech Goal 2 Comments terminal manager goal: Pt will use conversational repair strategies to cooperatively find words in structured conversation, 100% accuracy, given extra time. STO: Pt will use conversation repair strategies to cooperatively find words in structured language activities, 75% accuracy, given moderate skilled instruction and cueing. Speech Goal 3 Cognitive Speech Goal 3 Comments Problem Solving Long-Term Goal: Pt will use compensatory strategies to solve moderately complex routine problems, with 100% accuracy, Independently, for ADLs such as shopping, time and money management. Short-Term Goal: Pt will use compensatory strategies to solve moderately complex routine problems, with 80% accuracy, given moderate skilled instruction and cueing. Social Work: Goals Discharge Plan return home with home care svs and family support Anticipated Discharge Home Destination Discharge With home care svs and family support Care Plan: Care Plan ADL's - Improve/Maintain Start: 12/07/17 13:26 Freq: DAILY Status: Active Target: Protocol: Activity Type Activity Date Activity User E-Sign Co-Sign Detail Recorded Client Recorded Date Recorded By Document 12/09/17 11:29 [id number] [id number] 12/09/17 11:30 [id number] 12/09/17 11:29 PMRU Outcome: ADL's/ADL Transfers Orders/Interventions Occupational Therapy Evaluation & Treatment Device Yes Patient to receive OT 5x/wk for 60-120 Therex min/day Self Care Management Group Therapy Neuromuscular ReEducation UE/LE ADL's with Assist Yes ADL Transfers with Assist Yes Toileting: Transfers,Clothing Management Yes ,Hygeine w/Assist Light Kitchen/Laundry w/Assist Yes Progression Toward Outcome/Goals Progressing Outcome/Goals Met Pt needs continuous v/c for safety during transfers. Pt has difficulty terminating tasks. Pt responded to questions innappropriatel y on several occasions (e.g. "Okay" when asked if there was anything he needed). Pt denies dizziness throughout session. Cardiovascular- Improve/Maintain Start: 12/07/17 13:26 Freq: QSHIFT Status: Active Target: Protocol: Activity Type Activity Date Activity User E-Sign Co-Sign Detail Recorded Client Recorded Date Recorded By Document 12/09/17 08:00 [id number] [id number] 12/09/17 10:08 [id number] 12/09/17 08:00 PMRU Outcome: Cardiovascular Vital Signs q Shift for 48hrs Then BID Yes Daily Weight Ordered No Current Cardiovascular Outcome/Goal Maintain/ Achieve Hemodynamic Stability Free of Abnormal Cardiac Symptoms Progression Toward Outcome/Goal Progressing Communication-Improve/Maintain Start: 12/06/17 16:04 Freq: DAILY Status: Active Target: Protocol: Activity Type Activity Date Activity User E-Sign Co-Sign Detail Recorded Client Recorded Date Recorded By Document 12/09/17 00:34 [id number] [id number] 12/09/17 00:35 [id number] 12/09/17 00:34 PMRU Outcome: Communication/Cognitive Status Outcome/Goals Use Comm Tools/ Devices Makes Needs Known Effectively Other Outcomes/Goals Comprehension correction goal: Pt will use compensatory strategies to demonstrate comprehsnion of complex, 3-4 part verbal and written information of moderate complexity, 90% accuracy given minimal cueing . STO: Pt will used compensatory strategies to demonstrate comprehension of complex 3-4 part verbal and written information, 80 % accuracy, given moderate extra time, and moderate skilled instruction and cueing. Expressive Language correction goal: Pt will use conversational repair strategies to cooperatively find words in structured conversation, 100% accuracy, given extra time. STO: Pt will use conversation repair strategies to cooperatively find words in structured language activities, 75% accuracy, given moderate skilled instruction and cueing. Cognitive: Problem Solving Long-Term Goal: Pt will use compensatory strategies to solve moderately complex routine problems, with 100% accuracy, Independently, for ADLs such as shopping, time and money management. Short-Term Goal : Pt will use compensatory strategies to solve moderately complex routine problems, with 80% accuracy, given moderate skilled instruction and cueing. Progression Toward Outcomes/Goals Progressing Coping/Psych-Improve/Maintain Start: 12/06/17 19:02 Freq: QSHIFT Status: Active Target: Protocol: Activity Type Activity Date Activity User E-Sign Co-Sign Detail Recorded Client Recorded Date Recorded By Document 12/09/17 08:00 [id number] [id number] 12/09/17 10:08 [id number] 12/09/17 08:00 PMRU Outcome: Coping/Psychosocial Coping Outcome/Goals Verbalization of Acceptance of Rehab Admit Verbalization of Sense of Control Over Health Status Willingness to Participate in Treatment Plan and Basic Needs Utilization of Available Support Systems Psychosocial Outcome/Goals Maintain/ Improve Emotional Health Cooperate/ Participate in Plan Progression Toward Outcome/Goals - Progressing Coping Progression Toward Outcome/Goals - Progressing Psychosocial DVT Prophylaxis- Improve/Maintain Start: 12/06/17 19:02 Freq: QSHIFT Status: Active Target: Protocol: Activity Type Activity Date Activity User E-Sign Co-Sign Detail Recorded Client Recorded Date Recorded By Document 12/09/17 08:00 [id number] [email or web address] 12/09/17 10:08 [id number] 12/09/17 08:00 PMRU Outcome: DVT Prophylaxis Outcome/Goals Remains Free of DVT Complies with DVT Prophylaxis /Treatment TEDS Stockings on Every AM, Off at HS Progression Toward Outcome/Goals Progressing Discharge Planning - Improve/Maintain Start: 12/06/17 19:02 Freq: DAILY Status: Active Target: Protocol: Activity Type Activity Date Activity User E-Sign Co-Sign Detail Recorded Client Recorded Date Recorded By Document 12/09/17 00:34 [id number] [id number] 12/09/17 00:35 [id number] 12/09/17 00:34 PMRU Outcome: Discharge Planning Update Patient Family No Outcome/Goals Demonstrates Understanding of Discharge Plan Progression Toward Outcome/Goals Progressing Education-Improve/Maintain Start: 12/06/17 19:02 Freq: QSHIFT Status: Active Target: Protocol: Activity Type Activity Date Activity User E-Sign Co-Sign Detail Recorded Client Recorded Date Recorded By Document 12/09/17 08:00 [id number] [email or web address] 12/09/17 10:08 [id number] 12/09/17 08:00 PMRU Outcome: Education Outcome/Goals Encourage Questions Progression Toward Outcome/Goals Progressing Neurological- Improve/Maintain Start: 12/06/17 19:02 Freq: QSHIFT Status: Active Target: Protocol: Activity Type Activity Date Activity User E-Sign Co-Sign Detail Recorded Client Recorded Date Recorded By Document 12/09/17 08:00 [id number] [id number] 12/09/17 10:08 [id number] 12/09/17 08:00 PMRU Outcome: Neurological Weakness/Aphasia Weakness Outcome/Goals Maintain/ Achieve Baseline Neurological Status Maintain/ Improve Strength/ROM Progression Toward Outcome/Goals Progressing Safety- Improve/Maintain Start: 12/06/17 19:02 Freq: QSHIFT Status: Active Target: Protocol: Activity Type Activity Date Activity User E-Sign Co-Sign Detail Recorded Client Recorded Date Recorded By Document 12/09/17 08:00 [id number] [email or web address] 12/09/17 10:08 [id number] 12/09/17 08:00 PMRU Outcome: Safety Outcome/Goals Remain Free of Injury or Harm Cooperates with Safety Measures for Least Restrictive Environment Prevent Falls/ Injury Progression Toward Outcome/Goals Progressing Outcome/Goals Met Comment KEELEY grier, pt chanted to a tamper-free PA in chair Medicine Note: Length of Stay: 9 days Anticipated Discharge Destination: Home Tentative Discharge Date: 12/18/17 Discharged to: Home
--- NOTE | 2017-12-09 16:52 | PN ---
Progress Note Date of Service: 12/09/17 Note: Frandy YOBANY DEL RIO was visited. Therapy notes read and reviewed. He was discussed in interdisciplinary plan of care rounds. Remains a little flat. Will start a Prozac trial in the morning Current Medications: Active Medications Generic Name Dose Route Start Last Admin Trade Name Freq PRN Reason Stop Dose Admin Aspirin 81 mg 12/07/17 09:00 12/09/17 08:07 Aspirin Ec Tab* PO 81 mg DAILY ANA M Administration Clopidogrel Bisulfate 75 mg 12/07/17 09:00 12/09/17 08:07 Plavix Tab* PO 75 mg DAILY ANA M Administration Diazepam 2.5 mg 12/06/17 14:57 Valium Tab(*) PO Q8H PRN VERTIGO Dimenhydrinate 50 mg 12/07/17 14:53 Dramamine Tab* PO Q6H PRN . Docusate Sodium 100 mg 12/06/17 21:00 12/09/17 08:07 Colace Cap* PO 100 mg BID ANA M Administration Gabapentin 200 mg 12/06/17 21:00 12/08/17 21:41 Neurontin Cap(*) PO 200 mg BEDTIME ANA M Administration Heparin Sodium (Porcine) 5,000 units 12/06/17 22:00 12/09/17 14:12 Heparin Vial(*) SUBCUT 5,000 units Q8HR ANA M Administration Levothyroxine Sodium 88 mcg 12/07/17 06:00 12/09/17 05:15 Synthroid Tab* PO 88 mcg DAILY@0600 ANA M Administration Magnesium Hydroxide 30 ml 12/06/17 14:47 Milk Of Magnesia Liq* PO Q6H PRN CONSTIPATION Melatonin 3 mg 12/06/17 14:56 12/08/17 21:46 Melatonin PO 1.5 mg BEDTIME PRN Administration SLEEP Protocol Multivitamins/Minerals 1 cap 12/06/17 21:00 12/09/17 08:08 Preservision Areds 2 PO 1 cap BID ANA M Administration Multivitamins/Minerals 1 tab 12/07/17 09:00 12/09/17 08:07 Theragran/Minerals Tab* PO 1 tab DAILY ANA M Administration Rosuvastatin Calcium 20 mg 12/08/17 17:00 12/08/17 17:18 Crestor (Nf) PO 20 mg 1700 ANA M Administration Scopolamine 1 patch 12/07/17 20:00 12/08/17 14:09 Transderm-Scop 1.5 Mg Patch* TRANSDERM 1 patch Q72H ANA M Administration Senna 2 tab 12/06/17 14:47 Senokot Tab* PO BEDTIME PRN CONSTIPATION Vital Signs: Vital Signs Temp Pulse Resp BP Pulse Ox 98.2 F 90 20 138/77 95 12/09/17 05:15 12/09/17 05:15 12/09/17 05:15 12/09/17 05:15 12/09/17 05:15 Lab Results: Laboratory Results - last 24 hr 12/09/17 12/09/17 06:06 06:06 WBC 7.8 RBC 4.19 Hgb 13.2 L Hct 38 L MCV 92 MCH 32 H MCHC 34 RDW 14 Plt Count 167 MPV 8.4 Neut % (Auto) 64.3 Lymph % (Auto) 20.9 L [place] % (Auto) 10.1 H Eos % (Auto) 4.0 Baso % (Auto) 0.7 Absolute Neuts (auto) 5.0 Absolute Lymphs (auto) 1.6 Absolute Monos (auto) 0.8 Absolute Eos (auto) 0.3 Absolute Basos (auto) 0.1 Absolute Nucleated RBC 0 Nucleated RBC % 0 Sodium 138 Potassium 3.8 Chloride 107 Carbon Dioxide 26 Anion Gap 5 BUN 17 Creatinine 0.76 Est GFR ( Amer) 120.0 Est GFR (Non-Af Amer) 99.2 BUN/Creatinine Ratio 22.4 H Glucose 92 Calcium 8.4 L Total Bilirubin 0.50 AST 37 ALT 58 H Alkaline Phosphatase 58 Total Protein 5.6 L Albumin 3.3 Globulin 2.3 Albumin/Globulin Ratio 1.4 Exam: HEENT: EOMI LUNGS: CLear HEART: Reg rhythm ABDOMEN: Soft, +BS EXTREMITIES: Normal tone NEUROLOGIC: some dysmetria. Strength pretty close to 5/5. Mild Aphasia noted. Y/ N not completely accurate Assessment/Plan: 1. 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 ASA/Plavix. Prozac trial in am 2, Vertigo: Neurology felt this was BPPV, unclear if cerebellar CVA contributing. Scopolamine helping 3. DVT Prophylaxis: Heparin S/Q 4. Hypothyroidism: Synthroid 5. Advanced Directives: Full code 6. BPH: was on Flomax at home. Will restart 7. Hypercholesterolemia: wants to take own Crestor. will bring in 12/09/17 16:53
[2017-12-09] MEDS: PTO:Rosuvastatin (NF) 20 MG TAB PO SCH (18:05)
[2017-12-09] MEDS: Gabapentin CAP(*) 100 MG PO SCH (19:53)
[2017-12-09] MEDS: Melatonin (NF) ** ENTER STRENGTH IN LABEL DIRECTIONS PO SCH (21:18)
[2017-12-10] MEDS: Heparin VIAL(*) 5000 UNITS/ML VIAL (FIVE THOUSAND) SUBCUT SCH ×3 (06:10→21:00)
[2017-12-10] MEDS: Levothyroxine TAB* 88 MCG TAB PO SCH (06:10)
[2017-12-10] MEDS: Aspirin EC TAB* 81 MG TAB.EC PO SCH (09:04)
[2017-12-10] MEDS: Clopidogrel TAB* 75 MG PO SCH (09:04)
[2017-12-10] MEDS: FLUoxetine CAP* 10 MG PO SCH (09:05)
[2017-12-10] MEDS: Docusate CAP* 100 MG PO SCH ×2 (09:05→20:49)
[2017-12-10] MEDS: Multivitamins/Minerals TAB PO SCH (09:05)
[2017-12-10] MEDS: PTO:Multivitamins/Minerals AREDS2 cap PO SCH ×2 (09:06→20:49)
--- NOTE | 2017-12-10 12:41 | PMRUTEAM ---
PMRU: Team Meeting Current Status: Nursing: Current Status Skin Deviations [Left Arm] Other Skin Deviation Description [ - Left Arm] Bladder Current Status Continent - supervision with toileting Bowel Current Status Continent - supervision with toileting Nutrition Current Status 100% of all meals - independent with eating Medication Current Status Does not have any understanding of medications Physical Therapy: Current Status Bed Mobility Assistance Supervision Transfer Moblility Assistance Contact Guard Assist,Min Assist Transfer/Bed Mobility None,Rolling Walker Recommended Devices Ambulation Assistance Contact Guard Assist,Min Assist Ambulation Assistive Devices None,Rolling Walker Number of Feet Patient 300, 150 Ambulated Stairs Assistance Contact Guard Assist Stairs Recommended Devices Two Rails Number of Stairs 5 Objective Comments step to pattern ascend/descending stairs, pt looking straight ahead while descending stairs rather than looking down at step due to dizziness Occupational Therapy: Current Status Upper Body Dressing Supervision Lower Body Dressing Contact Guard Assist Bathing Contact Guard Assist Toileting Contact Guard Assist Toilet Transfer Contact Guard Assist Shower Transfer Contact Guard Assist Eating Supervision Rec Therapy: Current Status Summary of Assessment and RT assessment complete and pt. is aware of RT Clinical Impression services. Pt. has been with visitors or resting in the afternoons but is open to continued leisure visits. Treatment Goals Pt. will engage in leisure activities while on the unit. Treatment Plan Provide RT services and encourage involvement. Social Work: Current Status Discharge Plan return home with home care svs and family support Potential for Family Training pt's is scheduled to come in for family training on 12/17 Anticipated Discharge Home Destination Discharge With home care svs and family support Nutrition: Current Status Monitoring Pt s/p CVA, admitted to PMRU. Pt reports good appetite; denies difficulty chewing/swallowing. no evidence difficulty chewing/swallowing per nursing assessments. Reviewed diet order; pt with no questions at this time. Soft BM and liquid BM noted yesterday. Pt reports small wt loss since admission, as UBW is 175# per pt. 2.8% wt loss x 4 days if accurate - discrepancy may be r/t difference in scales on different unit. Will follow wts. [ End ] Speech: Current Status Assessment Patient is progressing as expected. Patient demonstrated impaired attention and working memory for problem solving and generative naming. Goals: Physical Therapy: Initial Goals Bed Mobility Assistance Independent Transfer Mobility Assistance Independent Transfer/Bed Mobility Rolling Walker Recommended Devices Ambulation Independent Ambulation Recommended Devices Rolling Walker Ambulation Distance 300 Stairs Assistance Independent Stair Recommended Devices Two Rails Number of Stairs 1 flight Physical Therapy: Updated Goals Transfer/Bed Mobility Rolling Walker Recommended Devices Occupational Therapy: Initial Goals Goals to be Completed in (Days 7-10 days ) Upper Body Bathing Routine Modified Independent with Lower Body Bathing Routine Modified Independent with Upper Body Dressing Routine Independent Lower Body Dressing Routine Modified Independent with Toilet Hygeine and Clothing Modified Independent with Management Routine Toilet Transfer Routine Modified Independent with Tub Transfer Routine Modified Independent with Functional Transfers for ADL Modified Independent with Grooming Routine Independent Feeding Routine Independent Nursing: Goals Bladder Goal Continent - independent with toileting Bowel Goal Continent - independent with toileting Nutrition Goal 100% of all meals - independent with eating Medication Goal Supervision with medications Nutrition: Goals Intervention Goals 1. Intake will remain adequate to maintain stable wt (170-175#) 2. Pt will establish regular bowel pattern without constipation/diarrhea Speech: Goals Speech Goal 1 Comprehension Goal 1 Comments detention goal: Pt will use compensatory strategies to demonstrate comprehension of complex , 3-4 part verbal and written information of moderate complexity, 90% accuracy given minimal cueing. STO: Pt will used compensatory strategies to demonstrate comprehension of complex 3-4 part verbal and written information, 80% accuracy, given moderate extra time, and moderate skilled instruction and cueing. Status: Progressing as expected Patient improved in initiating action when given commands, rather than answering Yes/No as at initial assessment. Speech Goal 2 Expressive Language Speech Goal 2 Comments detention goal: Pt will use conversational repair strategies to cooperatively find words in structured conversation, 100% accuracy, given extra time. STO: Pt will use conversation repair strategies to cooperatively find words in structured language activities, 75% accuracy, given moderate skilled instruction and cueing. Status: Progressing as expected. Patient required moderate cueing to name items in categories, and to name categories of 3 items. Patient required only minimal cueing to add items to lists, but could not verbalize rationale. Patient stopped at requested number after initial instruction to count himself. Speech Goal 3 Cognitive Speech Goal 3 Comments Problem Solving Long-Term Goal: Pt will use compensatory strategies to solve moderately complex routine problems, with 100% accuracy, Independently, for ADLs such as shopping, time and money management. Short-Term Goal: Pt will use compensatory strategies to solve moderately complex routine problems, with 80% accuracy, given moderate skilled instruction and cueing. Status: Progressing as epected DISPATCH CLERK instructed patient to complete the Trsail Making Test, samples and tests part A and B. For part A, numbers in sequence, patient I'ly used verbal strategy of speaking aloud and naming next target while searching, and demonstrated delays visually finding items, especially on the Right side or behind his own hand. For Part B, alternating sequence of numbers and letters, patient required moderate cueing and reinstruciton to complete sample (1-A to 4-D). DISPATCH CLERK modified instruction to present the ifnformation in 2 columns and to recite the sequence verbally, and patient checked and corrected his work. To complete test, patient required moderate cueing. Patient inconsistently used verbal strategy of naming pairs aloud ("5-E"), and of looking at the next to last letter to determine the next letter. At 8 pf 12, performance deterioriated and DISPATCH CLERK directed patient to take a "mental and physical break" by visualizaing a favorite activity (hiking on a favorite trail). Patient required maximum cueing and instruction to reorient ad complete task. Social Work: Goals Discharge Plan return home with home care svs and family support Potential for Family Training pt's is scheduled to come in for family training on 12/17 Anticipated Discharge Home Destination Discharge With home care svs and family support Care Plan: Care Plan ADL's - Improve/Maintain Start: 12/07/17 13:26 Freq: DAILY Status: Active Target: Protocol: Activity Type Activity Date Activity User E-Sign Co-Sign Detail Recorded Client Recorded Date Recorded By Document 12/09/17 11:29 [id number] 12/09/17 11:30 [id number] 12/09/17 11:29 PMRU Outcome: ADL's/ADL Transfers Orders/Interventions Occupational Therapy Evaluation & Treatment Device Yes Patient to receive OT 5x/wk for 60-120 Therex min/day Self Care Management Group Therapy Neuromuscular ReEducation UE/LE ADL's with Assist Yes ADL Transfers with Assist Yes Toileting: Transfers,Clothing Management Yes ,Hygeine w/Assist Light Kitchen/Laundry w/Assist Yes Progression Toward Outcome/Goals Progressing Outcome/Goals Met Pt needs continuous v/c for safety during transfers. Pt has difficulty terminating tasks. Pt responded to questions innappropriatel y on several occasions (e.g. "Okay" when asked if there was anything he needed). Pt denies dizziness throughout session. Cardiovascular- Improve/Maintain Start: 12/07/17 13:26 Freq: QSHIFT Status: Active Target: Protocol: Activity Type Activity Date Activity User E-Sign Co-Sign Detail Recorded Client Recorded Date Recorded By Document 12/10/17 01:00 [id number] 12/10/17 01:00 [id number] 12/10/17 01:00 PMRU Outcome: Cardiovascular Vital Signs q Shift for 48hrs Then BID Yes Daily Weight Ordered No Current Cardiovascular Outcome/Goal Maintain/ Achieve Hemodynamic Stability Free of Abnormal Cardiac Symptoms Progression Toward Outcome/Goal Progressing Communication-Improve/Maintain Start: 12/06/17 16:04 Freq: DAILY Status: Active Target: Protocol: Activity Type Activity Date Activity User E-Sign Co-Sign Detail Recorded Client Recorded Date Recorded By Document 12/09/17 15:12 [id number] [email or web address] 12/09/17 15:12 [id number] 12/09/17 15:12 PMRU Outcome: Communication/Cognitive Status Outcome/Goals Use Comm Tools/ Devices Makes Needs Known Effectively Other Outcomes/Goals Comprehension detention goal: Pt will use compensatory strategies to demonstrate comprehsnion of complex, 3-4 part verbal and written information of moderate complexity, 90% accuracy given minimal cueing . STO: Pt will used compensatory strategies to demonstrate comprehension of complex 3-4 part verbal and written information, 80 % accuracy, given moderate extra time, and moderate skilled instruction and cueing. Expressive Language detention goal: Pt will use conversational repair strategies to cooperatively find words in structured conversation, 100% accuracy, given extra time. STO: Pt will use conversation repair strategies to cooperatively find words in structured language activities, 75% accuracy, given moderate skilled instruction and cueing. Cognitive: Problem Solving Long-Term Goal: Pt will use compensatory strategies to solve moderately complex routine problems, with 100% accuracy, Independently, for ADLs such as shopping, time and money management. Short-Term Goal : Pt will use compensatory strategies to solve moderately complex routine problems, with 80% accuracy, given moderate skilled instruction and cueing. Progression Toward Outcomes/Goals Progressing Outcome/Goals Met Comment Patient is progressing as expected. Patient demonstrated impaired attention and working memory for problem solving and generative naming. Coping/Psych-Improve/Maintain Start: 12/06/17 19:02 Freq: QSHIFT Status: Active Target: Protocol: Activity Type Activity Date Activity User E-Sign Co-Sign Detail Recorded Client Recorded Date Recorded By Document 12/10/17 01:00 [email or web address] 12/10/17 01:00 12/10/17 01:00 PMRU Outcome: Coping/Psychosocial Coping Outcome/Goals Verbalization of Acceptance of Rehab Admit Verbalization of Sense of Control Over Health Status Willingness to Participate in Treatment Plan and Basic Needs Utilization of Available Support Systems Psychosocial Outcome/Goals Maintain/ Improve Emotional Health Cooperate/ Participate in Plan Progression Toward Outcome/Goals - Progressing Coping Progression Toward Outcome/Goals - Progressing Psychosocial DVT Prophylaxis- Improve/Maintain Start: 12/06/17 19:02 Freq: QSHIFT Status: Active Target: Protocol: Activity Type Activity Date Activity User E-Sign Co-Sign Detail Recorded Client Recorded Date Recorded By Document 12/10/17 01:00 [email or web address] 12/10/17 01:00 12/10/17 01:00 PMRU Outcome: DVT Prophylaxis Outcome/Goals Remains Free of DVT Complies with DVT Prophylaxis /Treatment TEDS Stockings on Every AM, Off at HS Progression Toward Outcome/Goals Progressing Discharge Planning - Improve/Maintain Start: 12/06/17 19:02 Freq: DAILY Status: Active Target: Protocol: Activity Type Activity Date Activity User E-Sign Co-Sign Detail Recorded Client Recorded Date Recorded By Document 12/10/17 00:00 [id number] [id number] 12/10/17 01:00 12/10/17 00:00 PMRU Outcome: Discharge Planning Update Patient Family No Outcome/Goals Demonstrates Understanding of Discharge Plan Progression Toward Outcome/Goals Progressing Education-Improve/Maintain Start: 12/06/17 19:02 Freq: QSHIFT Status: Active Target: Protocol: Activity Type Activity Date Activity User E-Sign Co-Sign Detail Recorded Client Recorded Date Recorded By Document 12/10/17 01:00 [email or web address] 12/10/17 01:00 12/10/17 01:00 PMRU Outcome: Education Outcome/Goals Encourage Questions Progression Toward Outcome/Goals Progressing Neurological- Improve/Maintain Start: 12/06/17 19:02 Freq: QSHIFT Status: Active Target: Protocol: Activity Type Activity Date Activity User E-Sign Co-Sign Detail Recorded Client Recorded Date Recorded By Document 12/10/17 01:00 [id number] 12/10/17 01:00 [id number] 12/10/17 01:00 PMRU Outcome: Neurological Weakness/Aphasia Weakness Outcome/Goals Maintain/ Achieve Baseline Neurological Status Maintain/ Improve Strength/ROM Progression Toward Outcome/Goals Progressing Safety- Improve/Maintain Start: 12/06/17 19:02 Freq: QSHIFT Status: Active Target: Protocol: Activity Type Activity Date Activity User E-Sign Co-Sign Detail Recorded Client Recorded Date Recorded By Document 12/10/17 01:00 [id number] [id number] 12/10/17 01:00 [id number] 12/10/17 01:00 PMRU Outcome: Safety Outcome/Goals Remain Free of Injury or Harm Cooperates with Safety Measures for Least Restrictive Environment Prevent Falls/ Injury Progression Toward Outcome/Goals Not Progressing Medicine Note: Length of Stay: 8 days Anticipated Discharge Destination: Home Tentative Discharge Date: 12/18/17 Discharged to: Home
--- NOTE | 2017-12-10 16:21 | PN ---
Progress Note Date of Service: 12/10/17 Note: Frandy DEL RIO was visited. Therapy notes read and reviewed. He started Prozac today and it seems to be helping. He is on Scopolamine that helps. He was discussed in interdisciplinary team rounds. Doing much better Current Medications: Active Medications Generic Name Dose Route Start Last Admin Trade Name Freq PRN Reason Stop Dose Admin Aspirin 81 mg 12/07/17 09:00 12/10/17 09:04 Aspirin Ec Tab* PO 81 mg DAILY ANA M Administration Clopidogrel Bisulfate 75 mg 12/07/17 09:00 12/10/17 09:04 Plavix Tab* PO 75 mg DAILY ANA M Administration Diazepam 2.5 mg 12/06/17 14:57 Valium Tab(*) PO Q8H PRN VERTIGO Dimenhydrinate 50 mg 12/07/17 14:53 Dramamine Tab* PO Q6H PRN . Docusate Sodium 100 mg 12/06/17 21:00 12/10/17 09:05 Colace Cap* PO 100 mg BID ANA M Administration Fluoxetine HCl 10 mg 12/10/17 09:00 12/10/17 09:05 Prozac Cap* PO 10 mg DAILY ANA M Administration Gabapentin 200 mg 12/06/17 21:00 12/09/17 19:53 Neurontin Cap(*) PO 200 mg BEDTIME ANA M Administration Heparin Sodium (Porcine) 5,000 units 12/06/17 22:00 12/10/17 14:16 Heparin Vial(*) SUBCUT 5,000 units Q8HR ANA M Administration Levothyroxine Sodium 88 mcg 12/07/17 06:00 12/10/17 06:10 Synthroid Tab* PO 88 mcg DAILY@0600 ANA M Administration Magnesium Hydroxide 30 ml 12/06/17 14:47 Milk Of Magnesia Liq* PO Q6H PRN CONSTIPATION Melatonin 1 tab 12/09/17 21:00 12/09/17 21:18 Melatonin (Nf) PO 1 tab BEDTIME ANA M Administration Multivitamins/Minerals 1 cap 12/06/17 21:00 12/10/17 09:06 Preservision Areds 2 PO 1 cap BID ANA M Administration Multivitamins/Minerals 1 tab 12/07/17 09:00 12/10/17 09:05 Theragran/Minerals Tab* PO 1 tab DAILY ANA M Administration Rosuvastatin Calcium 20 mg 12/08/17 17:00 12/09/17 18:05 Crestor (Nf) PO 20 mg 1700 ANA M Administration Scopolamine 1 patch 12/07/17 20:00 12/08/17 14:09 Transderm-Scop 1.5 Mg Patch* TRANSDERM 1 patch Q72H ANA M Administration Senna 2 tab 12/06/17 14:47 Senokot Tab* PO BEDTIME PRN CONSTIPATION Vital Signs: Vital Signs Temp Pulse Resp BP Pulse Ox 98.5 F 72 18 100/59 99 12/10/17 15:26 12/10/17 15:26 12/10/17 15:26 12/10/17 15:26 12/10/17 15:26 Exam: HEENT: EOMI LUNGS: CLear HEART: Reg rhythm ABDOMEN: Soft, +BS EXTREMITIES: Normal tone NEUROLOGIC: some dysmetria. Strength pretty close to 5/5. Mild Aphasia noted. Y/ N not completely accurate Assessment/Plan: 1. 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 ASA/Plavix. Prozac started 2, Vertigo: Neurology felt this was BPPV, unclear if cerebellar CVA contributing. Scopolamine helping 3. DVT Prophylaxis: Heparin S/Q 4. Hypothyroidism: Synthroid 5. Advanced Directives: Full code 6. BPH: was on Flomax at home. Will restart 7. Hypercholesterolemia: wants to take own Crestor. 12/10/17 16:21
[2017-12-10] MEDS: PTO:Rosuvastatin (NF) 20 MG TAB PO SCH (17:04)
[2017-12-10] MEDS: Gabapentin CAP(*) 100 MG PO SCH (20:49)
[2017-12-10] MEDS: Melatonin (NF) ** ENTER STRENGTH IN LABEL DIRECTIONS PO SCH (20:50)
[2017-12-10] MEDS: Scopolamine 1.5 mg* PATCH TRANSDERM SCH (20:57)
[2017-12-11] MEDS: Levothyroxine TAB* 88 MCG TAB PO SCH (06:18)
[2017-12-11] MEDS: Heparin VIAL(*) 5000 UNITS/ML VIAL (FIVE THOUSAND) SUBCUT SCH ×3 (06:19→21:30)
[2017-12-11] MEDS: FLUoxetine CAP* 10 MG PO SCH (08:50)
[2017-12-11] MEDS: PTO:Multivitamins/Minerals AREDS2 cap PO SCH ×2 (08:50→20:01)
[2017-12-11] MEDS: Clopidogrel TAB* 75 MG PO SCH (08:50)
[2017-12-11] MEDS: Multivitamins/Minerals TAB PO SCH (08:50)
[2017-12-11] MEDS: Aspirin EC TAB* 81 MG TAB.EC PO SCH (08:50)
[2017-12-11] MEDS: Docusate CAP* 100 MG PO SCH ×2 (08:50→20:02)
[2017-12-11] MEDS: PTO:Rosuvastatin (NF) 20 MG TAB PO SCH (17:00)
--- NOTE | 2017-12-11 20:00 | PN ---
Progress Note Date of Service: 12/11/17 Note: Frandy DEL RIO was visited. Therapy notes read and reviewed. Gait still slightly unsteady, with wide base. Still slightly impulsive but feels like he is doing okay Current Medications: Active Medications Generic Name Dose Route Start Last Admin Trade Name Freq PRN Reason Stop Dose Admin Aspirin 81 mg 12/07/17 09:00 12/11/17 08:50 Aspirin Ec Tab* PO 81 mg DAILY ANA M Administration Clopidogrel Bisulfate 75 mg 12/07/17 09:00 12/11/17 08:50 Plavix Tab* PO 75 mg DAILY ANA M Administration Dimenhydrinate 50 mg 12/07/17 14:53 Dramamine Tab* PO Q6H PRN . Docusate Sodium 100 mg 12/06/17 21:00 12/11/17 08:50 Colace Cap* PO 100 mg BID ANA M Administration Fluoxetine HCl 10 mg 12/10/17 09:00 12/11/17 08:50 Prozac Cap* PO 10 mg DAILY ANA M Administration Gabapentin 200 mg 12/06/17 21:00 12/10/17 20:49 Neurontin Cap(*) PO 200 mg BEDTIME ANA M Administration Heparin Sodium (Porcine) 5,000 units 12/06/17 22:00 12/11/17 15:33 Heparin Vial(*) SUBCUT 5,000 units Q8HR ANA M Administration Levothyroxine Sodium 88 mcg 12/07/17 06:00 12/11/17 06:18 Synthroid Tab* PO 88 mcg DAILY@0600 ANA M Administration Magnesium Hydroxide 30 ml 12/06/17 14:47 Milk Of Magnesia Liq* PO Q6H PRN CONSTIPATION Melatonin 1 tab 12/09/17 21:00 12/10/17 20:50 Melatonin (Nf) PO 1 tab BEDTIME ANA M Administration Multivitamins/Minerals 1 cap 12/06/17 21:00 12/11/17 08:50 Preservision Areds 2 PO 1 cap BID ANA M Administration Multivitamins/Minerals 1 tab 12/07/17 09:00 12/11/17 08:50 Theragran/Minerals Tab* PO 1 tab DAILY ANA M Administration Non-Formulary Medication 1 applic 12/11/17 21:00 Tronolane TOPICAL BEDTIME ANA M Rosuvastatin Calcium 20 mg 12/11/17 17:00 12/11/17 17:00 Crestor (Nf) PO 20 mg 1700 ANA M Administration Scopolamine 1 patch 12/07/17 20:00 12/10/17 20:57 Transderm-Scop 1.5 Mg Patch* TRANSDERM 1 patch Q72H ANA M Administration Senna 2 tab 12/06/17 14:47 Senokot Tab* PO BEDTIME PRN CONSTIPATION Vital Signs: Vital Signs Temp Pulse Resp BP Pulse Ox 97.8 F 67 18 113/60 100 12/11/17 15:12/11/17 15:12/11/17 15:12/11/17 15:12/11/17 16:01 Exam: HEENT: EOMI LUNGS: CLear HEART: Reg rhythm ABDOMEN: Soft, +BS EXTREMITIES: Normal tone NEUROLOGIC: some dysmetria. Strength pretty close to 5/5. Mild Aphasia noted. Y/ N not completely accurate Assessment/Plan: 1. 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 Prozac started 2, Vertigo: Neurology felt this was BPPV, unclear if cerebellar CVA contributing. Scopolamine helping. Will need ENT referral after d/c 3. DVT Prophylaxis: Heparin S/Q 4. Hypothyroidism: Synthroid 5. Advanced Directives: Full code 6. BPH: was on Flomax at home. Will restart 7. Hypercholesterolemia: wants to take own Crestor. 12/11/17 20:04
[2017-12-11] MEDS: Gabapentin CAP(*) 100 MG PO SCH (20:01)
[2017-12-11] MEDS: Melatonin (NF) ** ENTER STRENGTH IN LABEL DIRECTIONS PO SCH (20:02)
[2017-12-11] MEDS: TRONOLANE TOPICAL SCH (22:05)
[2017-12-12] MEDS: Levothyroxine TAB* 88 MCG TAB PO SCH (05:55)
[2017-12-12] MEDS: Heparin VIAL(*) 5000 UNITS/ML VIAL (FIVE THOUSAND) SUBCUT SCH ×3 (05:56→22:06)
[2017-12-12] MEDS: FLUoxetine CAP* 10 MG PO SCH (07:35)
[2017-12-12] MEDS: Clopidogrel TAB* 75 MG PO SCH (07:35)
[2017-12-12] MEDS: PTO:Multivitamins/Minerals AREDS2 cap PO SCH ×2 (07:35→20:24)
[2017-12-12] MEDS: Multivitamins/Minerals TAB PO SCH (07:35)
[2017-12-12] MEDS: Docusate CAP* 100 MG PO SCH ×2 (07:35→20:25)
[2017-12-12] MEDS: Aspirin EC TAB* 81 MG TAB.EC PO SCH (07:35)
[2017-12-12] MEDS: PTO:Rosuvastatin (NF) 20 MG TAB PO SCH (17:08)
[2017-12-12] MEDS: Melatonin (NF) ** ENTER STRENGTH IN LABEL DIRECTIONS PO SCH (20:24)
[2017-12-12] MEDS: Gabapentin CAP(*) 100 MG PO SCH (20:25)
[2017-12-12] MEDS: TRONOLANE TOPICAL SCH (21:39)
--- NOTE | 2017-12-12 22:15 | PN ---
Progress Note Date of Service: 12/12/17 Note: Frandy DEL RIO was visited. Therapy notes read and reviewed. His and he had questions about the loop recorder and how to get it done. They also wondered about the exact timing of DAPT. Will try to ask neurology about how long DAPT, from admission or when he started it. Will ask cardiology about loop recorder Current Medications: Active Medications Generic Name Dose Route Start Last Admin Trade Name Freq PRN Reason Stop Dose Admin Aspirin 81 mg 12/07/17 09:00 12/12/17 07:35 Aspirin Ec Tab* PO 81 mg DAILY ANA M Administration Clopidogrel Bisulfate 75 mg 12/07/17 09:00 12/12/17 07:35 Plavix Tab* PO 75 mg DAILY ANA M Administration Dimenhydrinate 50 mg 12/07/17 14:53 Dramamine Tab* PO Q6H PRN . Docusate Sodium 100 mg 12/06/17 21:00 12/12/17 20:25 Colace Cap* PO 100 mg BID ANA M Administration Fluoxetine HCl 10 mg 12/10/17 09:00 12/12/17 07:35 Prozac Cap* PO 10 mg DAILY ANA M Administration Gabapentin 200 mg 12/06/17 21:00 12/12/17 20:25 Neurontin Cap(*) PO 200 mg BEDTIME ANA M Administration Heparin Sodium (Porcine) 5,000 units 12/06/17 22:00 12/12/17 22:06 Heparin Vial(*) SUBCUT 5,000 units Q8HR ANA M Administration Levothyroxine Sodium 88 mcg 12/07/17 06:00 12/12/17 05:55 Synthroid Tab* PO 88 mcg DAILY@0600 ANA M Administration Magnesium Hydroxide 30 ml 12/06/17 14:47 Milk Of Magnesia Liq* PO Q6H PRN CONSTIPATION Melatonin 1 tab 12/09/17 21:00 12/12/17 20:24 Melatonin (Nf) PO 1 tab BEDTIME ANA M Administration Multivitamins/Minerals 1 cap 12/06/17 21:00 12/12/17 20:24 Preservision Areds 2 PO 1 cap BID ANA M Administration Multivitamins/Minerals 1 tab 12/07/17 09:00 12/12/17 07:35 Theragran/Minerals Tab* PO 1 tab DAILY ANA M Administration Pto: (Tronolane 1 applic 12/11/17 21:00 12/12/17 21:39 Cream) TOPICAL Not Given BEDTIME ANA M Rosuvastatin Calcium 20 mg 12/11/17 17:00 12/12/17 17:08 Crestor (Nf) PO 20 mg 1700 ANA M Administration Scopolamine 1 patch 12/07/17 20:00 12/10/17 20:57 Transderm-Scop 1.5 Mg Patch* TRANSDERM 1 patch Q72H ANA M Administration Senna 2 tab 12/06/17 14:47 Senokot Tab* PO BEDTIME PRN CONSTIPATION Vital Signs: Vital Signs Temp Pulse Resp BP Pulse Ox 98.2 F 79 14 117/69 98 12/12/17 15:09 12/12/17 15:09 12/12/17 20:25 12/12/17 15:12/12/17 19:30 Exam: HEENT: EOMI LUNGS: CLear HEART: Reg rhythm ABDOMEN: Soft, +BS EXTREMITIES: Normal tone NEUROLOGIC: some dysmetria. Strength pretty close to 5/5. Mild Aphasia noted. Assessment/Plan: 1. 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 Prozac 2, Vertigo: Neurology felt this was BPPV, unclear if cerebellar CVA contributing. Scopolamine helping. May need ENT referral after d/c 3. DVT Prophylaxis: Heparin S/Q 4. Hypothyroidism: Synthroid 5. Advanced Directives: Full code 6. BPH: was on Flomax at home. Will restart 7. Hypercholesterolemia: wants to take own Crestor. 12/12/17 22:15
[2017-12-13] MEDS: Levothyroxine TAB* 88 MCG TAB PO SCH (05:12)
[2017-12-13] MEDS: Heparin VIAL(*) 5000 UNITS/ML VIAL (FIVE THOUSAND) SUBCUT SCH ×3 (05:25→22:02)
[2017-12-13] MEDS: Multivitamins/Minerals TAB PO SCH (07:11)
[2017-12-13] MEDS: Aspirin EC TAB* 81 MG TAB.EC PO SCH (07:11)
[2017-12-13] MEDS: Clopidogrel TAB* 75 MG PO SCH (07:11)
[2017-12-13] MEDS: FLUoxetine CAP* 10 MG PO SCH (07:11)
[2017-12-13] MEDS: PTO:Multivitamins/Minerals AREDS2 cap PO SCH ×2 (07:12→17:46)
[2017-12-13] MEDS: Docusate CAP* 100 MG PO SCH ×2 (07:12→19:53)
--- NOTE | 2017-12-13 10:41 | PN ---
Progress Note Date of Service: 12/13/17 Note: Frandy DEL RIO was visited. Nursing and therapy notes read and reviewed. No chest pain, shortness of breath or abdominal pain. Current Medications: Active Medications Generic Name Dose Route Start Last Admin Trade Name Freq PRN Reason Stop Dose Admin Aspirin 81 mg 12/07/17 09:00 12/13/17 07:11 Aspirin Ec Tab* PO 81 mg DAILY ANA M Administration Clopidogrel Bisulfate 75 mg 12/07/17 09:00 12/13/17 07:11 Plavix Tab* PO 75 mg DAILY ANA M Administration Dimenhydrinate 50 mg 12/07/17 14:53 Dramamine Tab* PO Q6H PRN . Docusate Sodium 100 mg 12/06/17 21:00 12/13/17 07:12 Colace Cap* PO 100 mg BID ANA M Administration Fluoxetine HCl 10 mg 12/10/17 09:00 12/13/17 07:11 Prozac Cap* PO 10 mg DAILY ANA M Administration Gabapentin 200 mg 12/06/17 21:00 12/12/17 20:25 Neurontin Cap(*) PO 200 mg BEDTIME ANA M Administration Heparin Sodium (Porcine) 5,000 units 12/06/17 22:00 12/13/17 05:25 Heparin Vial(*) SUBCUT 5,000 units Q8HR ANA M Administration Levothyroxine Sodium 88 mcg 12/07/17 06:00 12/13/17 05:12 Synthroid Tab* PO 88 mcg DAILY@0600 ANA M Administration Magnesium Hydroxide 30 ml 12/06/17 14:47 Milk Of Magnesia Liq* PO Q6H PRN CONSTIPATION Melatonin 1 tab 12/09/17 21:00 12/12/17 20:24 Melatonin (Nf) PO 1 tab BEDTIME ANA M Administration Multivitamins/Minerals 1 cap 12/06/17 21:00 12/13/17 07:12 Preservision Areds 2 PO 1 cap BID ANA M Administration Multivitamins/Minerals 1 tab 12/07/17 09:00 12/13/17 07:11 Theragran/Minerals Tab* PO 1 tab DAILY ANA M Administration Pto: (Tronolane 1 applic 12/11/17 21:00 12/12/17 21:39 Cream) TOPICAL Not Given BEDTIME ANA M Rosuvastatin Calcium 20 mg 12/11/17 17:00 09/13/18 17:08 Crestor (Nf) PO 20 mg 1700 ANA M Administration Scopolamine 1 patch 12/07/17 20:00 12/10/17 20:57 Transderm-Scop 1.5 Mg Patch* TRANSDERM 1 patch Q72H ANA M Administration Senna 2 tab 12/06/17 14:47 Senokot Tab* PO BEDTIME PRN CONSTIPATION Vital Signs: Vital Signs Temp Pulse Resp BP Pulse Ox 98.2 F 63 16 119/65 95 12/13/17 05:01 12/13/17 05:01 12/13/17 07:12 12/13/17 05:01 12/13/17 07:12 Exam: GEN: no acute distress. alert and appropriate LUNGS: CLear to auscultation bilaterally HEART: Regular rate and rhythm ABDOMEN: Soft, +BS, non-tender, non-distended EXTREMITIES: No edema NEUROLOGIC: CN II-XII intact. Left dysmetria with finger to nose and ataxic with left heel to lazo. Strength 5/5 with normal sensation. Mild Aphasia. Assessment/Plan: 1. 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 ASA/Plavix, but unclear for how long. Prozac. Eventual loop recorder. f/u with neurology. 2. Vertigo: Neurology felt this was BPPV, unclear if cerebellar CVA contributing. Scopolamine. May need ENT referral after d/c 3. DVT Prophylaxis: Heparin S/Q 4. Hypothyroidism: Synthroid 5. Advanced Directives: Full code 6. h/o Prostate CA s/p prostatectomy and takes no other medication for urination. 7. Hypercholesterolemia: takes own Crestor. 12/13/17 10:44
[2017-12-13] MEDS: PTO:Rosuvastatin (NF) 20 MG TAB PO SCH (17:25)
[2017-12-13] MEDS: Melatonin (NF) ** ENTER STRENGTH IN LABEL DIRECTIONS PO SCH (19:53)
[2017-12-13] MEDS: Gabapentin CAP(*) 100 MG PO SCH (19:53)
[2017-12-13] MEDS: Scopolamine 1.5 mg* PATCH TRANSDERM SCH (19:54)
[2017-12-13] MEDS: TRONOLANE TOPICAL SCH (20:14)
[2017-12-14] MEDS: Heparin VIAL(*) 5000 UNITS/ML VIAL (FIVE THOUSAND) SUBCUT SCH ×3 (05:26→22:15)
[2017-12-14] MEDS: Levothyroxine TAB* 88 MCG TAB PO SCH (06:05)
[2017-12-14] MEDS: PTO:Multivitamins/Minerals AREDS2 cap PO SCH ×2 (08:53→16:53)
[2017-12-14] MEDS: Clopidogrel TAB* 75 MG PO SCH (08:53)
[2017-12-14] MEDS: Docusate CAP* 100 MG PO SCH ×2 (08:53→20:16)
[2017-12-14] MEDS: FLUoxetine CAP* 10 MG PO SCH (08:53)
[2017-12-14] MEDS: Aspirin EC TAB* 81 MG TAB.EC PO SCH (08:53)
[2017-12-14] MEDS: Multivitamins/Minerals TAB PO SCH (08:54)
--- NOTE | 2017-12-14 09:28 | PN ---
Progress Note Date of Service: 12/14/17 Note: Frandy DEL RIO was visited. Nursing and therapy notes read and reviewed. No new concerns overnight. Stroke education completed yesterday. Current Medications: Active Medications Generic Name Dose Route Start Last Admin Trade Name Freq PRN Reason Stop Dose Admin Aspirin 81 mg 12/07/17 09:00 12/14/17 08:53 Aspirin Ec Tab* PO 81 mg DAILY ANA M Administration Clopidogrel Bisulfate 75 mg 12/07/17 09:00 12/14/17 08:53 Plavix Tab* PO 75 mg DAILY ANA M Administration Dimenhydrinate 50 mg 12/07/17 14:53 Dramamine Tab* PO Q6H PRN . Docusate Sodium 100 mg 12/06/17 21:00 12/14/17 08:53 Colace Cap* PO 100 mg BID ANA M Administration Fluoxetine HCl 10 mg 12/10/17 09:00 12/14/17 08:53 Prozac Cap* PO 10 mg DAILY ANA M Administration Gabapentin 200 mg 12/06/17 21:00 12/13/17 19:53 Neurontin Cap(*) PO 200 mg BEDTIME ANA M Administration Heparin Sodium (Porcine) 5,000 units 12/06/17 22:00 12/14/17 05:26 Heparin Vial(*) SUBCUT 5,000 units Q8HR ANA M Administration Levothyroxine Sodium 88 mcg 12/07/17 06:00 12/14/17 06:05 Synthroid Tab* PO 88 mcg DAILY@0600 ANA M Administration Magnesium Hydroxide 30 ml 12/06/17 14:47 Milk Of Magnesia Liq* PO Q6H PRN CONSTIPATION Melatonin 1 tab 12/09/17 21:00 12/13/17 19:53 Melatonin (Nf) PO 1 tab BEDTIME ANA M Administration Multivitamins/Minerals 1 tab 12/07/17 09:00 12/14/17 08:54 Theragran/Minerals Tab* PO 1 tab DAILY ANA M Administration Multivitamins/Minerals 1 cap 12/13/17 17:00 12/14/17 08:53 Preservision Areds 2 PO 1 cap 0800,1700 ANA M Administration Pto: (Tronolane 1 applic 12/11/17 21:00 12/13/17 20:14 Cream) TOPICAL Not Given BEDTIME ANA M Rosuvastatin Calcium 20 mg 12/11/17 17:00 12/13/17 17:25 Crestor (Nf) PO 20 mg 1700 ANA M Administration Scopolamine 1 patch 12/07/17 20:00 12/13/17 19:54 Transderm-Scop 1.5 Mg Patch* TRANSDERM 1 patch Q72H ANA M Administration Senna 2 tab 12/06/17 14:47 Senokot Tab* PO BEDTIME PRN CONSTIPATION Vital Signs: Vital Signs Temp Pulse Resp BP Pulse Ox 98.0 F 58 18 144/72 99 12/14/17 05:28 12/14/17 05:28 12/14/17 05:28 12/14/17 05:28 12/14/17 05:28 Exam: GEN: no acute distress. alert and appropriate LUNGS: CLear to auscultation bilaterally HEART: Regular rate and rhythm ABDOMEN: Soft, +BS, non-tender, non-distended EXTREMITIES: No edema NEUROLOGIC: CN II-XII intact. Strength 5/5 with normal sensation. Mild Aphasia. Left dysmetria Assessment/Plan: 1. 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 ASA/Plavix, but unclear for how long. Prozac. Eventual loop recorder. f/u with neurology. 2. Vertigo: Neurology felt this was BPPV, unclear if cerebellar CVA contributing. Scopolamine. May need ENT referral after d/c 3. DVT Prophylaxis: Heparin S/Q 4. Hypothyroidism: Synthroid 5. Advanced Directives: Full code 6. h/o Prostate CA s/p prostatectomy and takes no other medication for urination. 7. Hypercholesterolemia: takes own Crestor. 12/14/17 09:28
[2017-12-14] MEDS: PTO:Rosuvastatin (NF) 20 MG TAB PO SCH (16:53)
[2017-12-14] MEDS: Melatonin (NF) ** ENTER STRENGTH IN LABEL DIRECTIONS PO SCH (20:16)
[2017-12-14] MEDS: Gabapentin CAP(*) 100 MG PO SCH (20:16)
[2017-12-14] MEDS: TRONOLANE TOPICAL SCH (22:16)
[2017-12-15] MEDS: Heparin VIAL(*) 5000 UNITS/ML VIAL (FIVE THOUSAND) SUBCUT SCH ×3 (05:46→22:26)
[2017-12-15] MEDS: Levothyroxine TAB* 88 MCG TAB PO SCH (05:46)
[2017-12-15] MEDS: PTO:Multivitamins/Minerals AREDS2 cap PO SCH ×2 (08:13→16:54)
[2017-12-15] MEDS: Multivitamins/Minerals TAB PO SCH (08:14)
[2017-12-15] MEDS: FLUoxetine CAP* 10 MG PO SCH (08:14)
[2017-12-15] MEDS: Aspirin EC TAB* 81 MG TAB.EC PO SCH (08:14)
[2017-12-15] MEDS: Clopidogrel TAB* 75 MG PO SCH (08:14)
[2017-12-15] MEDS: Docusate CAP* 100 MG PO SCH ×2 (08:14→19:37)
--- NOTE | 2017-12-15 09:01 | PN ---
Progress Note Date of Service: 12/15/17 Note: Frandy DEL RIO was visited. Nursing notes read and reviewed. No chest pain, shortness of breath or abdominal pain. Current Medications: Active Medications Generic Name Dose Route Start Last Admin Trade Name Freq PRN Reason Stop Dose Admin Aspirin 81 mg 12/07/17 09:00 12/15/17 08:14 Aspirin Ec Tab* PO 81 mg DAILY ANA M Administration Clopidogrel Bisulfate 75 mg 12/07/17 09:00 12/15/17 08:14 Plavix Tab* PO 75 mg DAILY ANA M Administration Dimenhydrinate 50 mg 12/07/17 14:53 Dramamine Tab* PO Q6H PRN . Docusate Sodium 100 mg 12/06/17 21:00 12/15/17 08:14 Colace Cap* PO 100 mg BID ANA M Administration Fluoxetine HCl 10 mg 12/10/17 09:00 12/15/17 08:14 Prozac Cap* PO 10 mg DAILY ANA M Administration Gabapentin 200 mg 12/06/17 21:00 12/14/17 20:16 Neurontin Cap(*) PO 200 mg BEDTIME ANA M Administration Heparin Sodium (Porcine) 5,000 units 12/06/17 22:00 12/15/17 05:46 Heparin Vial(*) SUBCUT 5,000 units Q8HR ANA M Administration Levothyroxine Sodium 88 mcg 12/07/17 06:00 12/15/17 05:46 Synthroid Tab* PO 88 mcg DAILY@0600 ANA M Administration Magnesium Hydroxide 30 ml 12/06/17 14:47 Milk Of Magnesia Liq* PO Q6H PRN CONSTIPATION Melatonin 1 tab 12/09/17 21:00 12/14/17 20:16 Melatonin (Nf) PO 1 tab BEDTIME ANA M Administration Multivitamins/Minerals 1 tab 12/07/17 09:00 12/15/17 08:14 Theragran/Minerals Tab* PO 1 tab DAILY ANA M Administration Multivitamins/Minerals 1 cap 12/13/17 17:00 12/15/17 08:13 Preservision Areds 2 PO 1 cap 0800,1700 ANA M Administration Pto: (Tronolane 1 applic 12/11/17 21:00 12/14/17 22:16 Cream) TOPICAL Not Given BEDTIME ANA M Rosuvastatin Calcium 20 mg 12/11/17 17:00 12/14/17 16:53 Crestor (Nf) PO 20 mg 1700 ANA M Administration Scopolamine 1 patch 12/07/17 20:00 12/13/17 19:54 Transderm-Scop 1.5 Mg Patch* TRANSDERM 1 patch Q72H ANA M Administration Senna 2 tab 12/06/17 14:47 Senokot Tab* PO BEDTIME PRN CONSTIPATION Vital Signs: Vital Signs Temp Pulse Resp BP Pulse Ox 98.0 F 59 20 142/72 100 12/15/17 05:48 12/15/17 05:48 12/15/17 05:48 12/15/17 05:48 12/15/17 05:48 Exam: GEN: no acute distress. alert and appropriate LUNGS: CLear to auscultation bilaterally HEART: Regular rate and rhythm ABDOMEN: Soft, +BS, non-tender, non-distended EXTREMITIES: No edema NEUROLOGIC: CN II-XII intact. Strength 5/5 with normal sensation. Mild Aphasia. Left dysmetria Assessment/Plan: 1. 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 ASA/Plavix, but unclear for how long. Prozac. Eventual loop recorder. f/u with neurology. 2. Vertigo: Neurology felt this was BPPV, unclear if cerebellar CVA contributing. Scopolamine. May need ENT referral after d/c 3. DVT Prophylaxis: Heparin S/Q 4. Hypothyroidism: Synthroid 5. Advanced Directives: Full code 6. h/o Prostate CA s/p prostatectomy and takes no other medication for urination. 7. Hypercholesterolemia: takes own Crestor. 12/15/17 09:01
[2017-12-15] MEDS: PTO:Rosuvastatin (NF) 20 MG TAB PO SCH (16:54)
[2017-12-15] MEDS: Gabapentin CAP(*) 100 MG PO SCH (19:37)
[2017-12-15] MEDS: Melatonin (NF) ** ENTER STRENGTH IN LABEL DIRECTIONS PO SCH (19:37)
[2017-12-15] MEDS: TRONOLANE TOPICAL SCH (19:44)
[2017-12-16] MEDS: Levothyroxine TAB* 88 MCG TAB PO SCH (05:48)
[2017-12-16] MEDS: Heparin VIAL(*) 5000 UNITS/ML VIAL (FIVE THOUSAND) SUBCUT SCH ×3 (05:49→21:00)
[2017-12-16 05:57] LABS: ABS Basophils 0.1 10^3/ul (0-0.2); ABS Eosinophils 0.3 10^3/ul (0-0.6); ABS Lymphocytes 1.3 10^3/ul (1.0-4.8); ABS Monocytes 0.7 10^3/ul (0-0.8); ABS Neutrophils 5.7 10^3/ul (1.5-7.7); ABS Nucleated RBC 0 10^3/ul; Eosinophil % 3.5 % (0-6); Hematocrit 40 % (42-52); Hemoglobin 13.5 g/dl (14.0-18.0); Lymphocyte % 16.2 % (25-47); Mean Corpuscular HGB Conc 34 g/dl (31-36); Mean Corpuscular Hemoglobin 32 pg (27-31); Mean Corpuscular Volume 92 fL (80-94); Mean Platelet Volume 8.6 um3 (7.4-10.4); Nucleated Red Blood Cells % 0; Platelet Count 191 10^3/ul (150-450); Red Cell Distribution Width 14 % (10.5-15); White Blood Count 8.1 10^3/ul (3.5-10.8)
[2017-12-16] MEDS: Aspirin EC TAB* 81 MG TAB.EC PO SCH (09:07)
[2017-12-16] MEDS: Docusate CAP* 100 MG PO SCH ×2 (09:07→21:00)
[2017-12-16] MEDS: FLUoxetine CAP* 10 MG PO SCH (09:07)
[2017-12-16] MEDS: Clopidogrel TAB* 75 MG PO SCH (09:07)
[2017-12-16] MEDS: Multivitamins/Minerals TAB PO SCH (09:07)
[2017-12-16] MEDS: PTO:Multivitamins/Minerals AREDS2 cap PO SCH ×2 (09:07→17:10)
[2017-12-16] MEDS: PTO:Rosuvastatin (NF) 20 MG TAB PO SCH (17:10)
--- NOTE | 2017-12-16 17:33 | PN ---
Progress Note Date of Service: 12/16/17 Note: Frandy DEL RIO was visited. Therapy notes read and reviewed. He has no complaints. Feels like he is doing better. Still some word finding difficulties. Current Medications: Active Medications Generic Name Dose Route Start Last Admin Trade Name Freq PRN Reason Stop Dose Admin Aspirin 81 mg 12/07/17 09:00 12/16/17 09:07 Aspirin Ec Tab* PO 81 mg DAILY ANA M Administration Clopidogrel Bisulfate 75 mg 12/07/17 09:00 12/16/17 09:07 Plavix Tab* PO 75 mg DAILY ANA M Administration Dimenhydrinate 50 mg 12/07/17 14:53 Dramamine Tab* PO Q6H PRN . Docusate Sodium 100 mg 12/06/17 21:00 12/16/17 09:07 Colace Cap* PO 100 mg BID ANA M Administration Fluoxetine HCl 10 mg 12/10/17 09:00 12/16/17 09:07 Prozac Cap* PO 10 mg DAILY ANA M Administration Gabapentin 200 mg 12/06/17 21:00 12/15/17 19:37 Neurontin Cap(*) PO 200 mg BEDTIME ANA M Administration Heparin Sodium (Porcine) 5,000 units 12/06/17 22:00 12/16/17 14:10 Heparin Vial(*) SUBCUT 5,000 units Q8HR ANA M Administration Levothyroxine Sodium 88 mcg 12/07/17 06:00 12/16/17 05:48 Synthroid Tab* PO 88 mcg DAILY@0600 ANA M Administration Magnesium Hydroxide 30 ml 12/06/17 14:47 Milk Of Magnesia Liq* PO Q6H PRN CONSTIPATION Melatonin 1 tab 12/09/17 21:00 12/15/17 19:37 Melatonin (Nf) PO 1 tab BEDTIME ANA M Administration Multivitamins/Minerals 1 tab 12/07/17 09:00 12/16/17 09:07 Theragran/Minerals Tab* PO 1 tab DAILY ANA M Administration Multivitamins/Minerals 1 cap 12/13/17 17:00 12/16/17 17:10 Preservision Areds 2 PO 1 cap 0800,1700 ANA M Administration Pto: (Tronolane 1 applic 12/11/17 21:00 12/15/17 19:44 Cream) TOPICAL Not Given BEDTIME ANA M Rosuvastatin Calcium 20 mg 12/11/17 17:00 12/16/17 17:10 Crestor (Nf) PO 20 mg 1700 ANA M Administration Scopolamine 1 patch 12/07/17 20:00 12/13/17 19:54 Transderm-Scop 1.5 Mg Patch* TRANSDERM 1 patch Q72H ANA M Administration Senna 2 tab 12/06/17 14:47 Senokot Tab* PO BEDTIME PRN CONSTIPATION Vital Signs: Vital Signs Temp Pulse Resp BP Pulse Ox 98.3 F 67 16 127/76 100 12/16/17 16:16 12/16/17 16:16 12/16/17 17:24 12/16/17 16:16 12/16/17 17:24 Lab Results: Laboratory Results - last 24 hr 12/16/17 12/16/17 05:39 05:39 WBC 8.1 RBC 4.30 Hgb 13.5 L Hct 40 L MCV 92 MCH 32 H MCHC 34 RDW 14 Plt Count 191 MPV 8.6 Neut % (Auto) 70.6 Lymph % (Auto) 16.2 L [place] % (Auto) 8.8 H Eos % (Auto) 3.5 Baso % (Auto) 0.9 Absolute Neuts (auto) 5.7 Absolute Lymphs (auto) 1.3 Absolute Monos (auto) 0.7 Absolute Eos (auto) 0.3 Absolute Basos (auto) 0.1 Absolute Nucleated RBC 0 Nucleated RBC % 0 Sodium 136 Potassium 4.2 Chloride 104 Carbon Dioxide 28 Anion Gap 4 BUN 15 Creatinine 0.86 Est GFR ( Amer) 104.1 Est GFR (Non-Af Amer) 86.0 BUN/Creatinine Ratio 17.4 Glucose 96 Calcium 9.1 Total Bilirubin 0.60 AST 45 H ALT 75 H Alkaline Phosphatase 65 Total Protein 6.4 Albumin 3.6 Globulin 2.8 Albumin/Globulin Ratio 1.3 Exam: LUNGS: CLear to auscultation bilaterally HEART: Regular rate and rhythm ABDOMEN: Soft, +BS, non-tender, non-distended EXTREMITIES: No edema NEUROLOGIC: CN II-XII intact. Strength 5/5. Normal Sensation. Mild Aphasia. Left dysmetria Assessment/Plan: 1. 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 Prozac. Eventual loop recorder. f/u with neurology. 2. Vertigo: Neurology felt this was BPPV, unclear if cerebellar CVA contributing. Scopolamine. May need ENT referral after d/c 3. DVT Prophylaxis: Heparin S/Q 4. Hypothyroidism: Synthroid 5. Advanced Directives: Full code 6. Prostate CA: s/p prostatectomy 7. Hypercholesterolemia: Crestor. 12/16/17 17:34
[2017-12-16] MEDS: Gabapentin CAP(*) 100 MG PO SCH (20:59)
[2017-12-16] MEDS: Scopolamine 1.5 mg* PATCH TRANSDERM SCH (21:00)
[2017-12-16] MEDS: Melatonin (NF) ** ENTER STRENGTH IN LABEL DIRECTIONS PO SCH (21:01)
[2017-12-16] MEDS: TRONOLANE TOPICAL SCH (21:05)
[2017-12-17] MEDS: Levothyroxine TAB* 88 MCG TAB PO SCH (06:04)
[2017-12-17] MEDS: Heparin VIAL(*) 5000 UNITS/ML VIAL (FIVE THOUSAND) SUBCUT SCH ×3 (06:04→21:20)
[2017-12-17] MEDS: PTO:Multivitamins/Minerals AREDS2 cap PO SCH ×2 (09:27→17:31)
[2017-12-17] MEDS: Clopidogrel TAB* 75 MG PO SCH (09:27)
[2017-12-17] MEDS: Multivitamins/Minerals TAB PO SCH (09:27)
[2017-12-17] MEDS: FLUoxetine CAP* 10 MG PO SCH (09:27)
[2017-12-17] MEDS: Aspirin EC TAB* 81 MG TAB.EC PO SCH (09:28)
[2017-12-17] MEDS: Docusate CAP* 100 MG PO SCH ×2 (09:28→21:20)
--- NOTE | 2017-12-17 12:49 | PMRUTEAM ---
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] Skin Deviation Description [ - Left Arm] Bladder Current Status voiding without difficulty Bowel Current Status last bm 12/16 Nutrition Current Status 100% of all meals - independent with eating Medication Current Status needs reinforcement Physical Therapy: Current Status Bed Mobility Assistance Independent Transfer Moblility Assistance Supervision,Contact Guard Assist Transfer/Bed Mobility Rolling Walker Recommended Devices Ambulation Assistance Supervision,Contact Guard Assist Ambulation Assistive Devices Rolling Walker Number of Feet Patient 200, 2x20 Ambulated Stairs Assistance Supervision,Contact Guard Assist Stairs Recommended Devices One Rail Number of Stairs 12 Objective Comments cues for "2 feet on each step" with stair negotiation, pt taking first step down quickly and misjudged depth of step, requiring steadying assist from PT. Occupational Therapy: Current Status Upper Body Dressing Supervision Upper Body Dressing Progress seated with v/c's Lower Body Dressing Supervision,Contact Guard Assist Bathing Supervision,Contact Guard Assist Toileting Supervision,Contact Guard Assist Toilet Transfer Supervision,Contact Guard Assist Shower Transfer Supervision,Contact Guard Assist Eating Independent Rec Therapy: Current Status Summary of Assessment and RT assessment complete and pt. is aware of RT Clinical Impression services. Pt. has been engaged in leisure visits and goes outside with his in the afternoons. Treatment Goals Pt. will engage in leisure activities while on the unit. Treatment Plan Provide RT services and encourage involvement. Social Work: Current Status Discharge Plan return home with home care svs and family support Potential for Family Training pt's participated in family training w/ OT and PT Anticipated Discharge Home Destination Discharge With home care svs and family support Nutrition: Current Status Monitoring Pt remains on a heart healthy diet; consuming mostly 75-100% of meals since adm. Anticipate overall intake to be adequate; however, because current documented wt is 5# below pt's stated UBW, would recommend checking standing wt as able. Per nursing, pt is tolerating diet w/o difficulty chewing/swallowing. Per chart, pt w/o pressure related skin breakdown. Last BM documented 12/14; bowel meds prn. No acute nutrition concerns identified. Speech: Current Status Assessment Patient has made sgnificant progress and has met verbal comprehension and expressiomn goals at the 90% level, and problem solving goals at the 80% level. Speech therapy services are indicated as an outpatient after discharge. Goals: Physical Therapy: Initial Goals Bed Mobility Assistance Independent Transfer Mobility Assistance Independent Transfer/Bed Mobility Rolling Walker Recommended Devices Ambulation Independent Ambulation Recommended Devices Rolling Walker Ambulation Distance 300 Stairs Assistance Independent Stair Recommended Devices Two Rails Number of Stairs 1 flight Physical Therapy: Updated Goals Transfer/Bed Mobility Rolling Walker Recommended Devices Occupational Therapy: Initial Goals Goals to be Completed in (Days 7-10 days ) Upper Body Bathing Routine Modified Independent with Lower Body Bathing Routine Modified Independent with Upper Body Dressing Routine Independent Lower Body Dressing Routine Modified Independent with Toilet Hygeine and Clothing Modified Independent with Management Routine Toilet Transfer Routine Modified Independent with Tub Transfer Routine Modified Independent with Functional Transfers for ADL Modified Independent with Grooming Routine Independent Feeding Routine Independent Nursing: Goals Bladder Goal independent Bowel Goal independent Nutrition Goal 100% of all meals - independent with eating Medication Goal Supervision with medications Nutrition: Goals Intervention Goals 1. Intake will remain adequate to maintain stable wt (170-175#) 2. Pt will establish regular bowel pattern without constipation/diarrhea Speech: Goals Speech Goal 1 Comprehension Goal 1 Comments Language Comprehension Goals: residential goal: Pt will use compensatory strategies to demonstrate comprehension of complex , 3-4 part verbal and written information of moderate complexity, 90% accuracy given minimal cueing. Status: MET. STO: Pt will used compensatory strategies to demonstrate comprehension of complex 3-4 part verbal and written information, 80% accuracy, given moderate extra time, and moderate skilled instruction and cueing. 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 Status: MET STO: Pt will use conversation repair strategies to cooperatively find words in structured language activities, 75% accuracy, given moderate skilled instruction and cueing. Status: MET Speech Goal 3 Cognitive Speech Goal 3 Comments Problem Solving Goals: Long-Term Goal: Pt will use compensatory strategies to solve moderately complex routine problems, with 100% accuracy, Independently, for ADLs such as shopping, time and money management. Status: Progressing as expected. Short-Term Goal: Pt will use compensatory strategies to solve moderately complex routine problems, with 80% accuracy, given minimal skilled instruction and cueing. Status: Met Social Work: Goals Discharge Plan return home with home care svs and family support Potential for Family Training pt's participated in family training w/ OT and PT Anticipated Discharge Home Destination Discharge With home care svs and family support Care Plan: Care Plan ADL's - Improve/Maintain Start: 12/07/17 13:26 Freq: DAILY Status: Active Target: Protocol: Activity Type Activity Date Activity User E-Sign Co-Sign Detail Recorded Client Recorded Date Recorded By Document 12/17/17 11:47 [id number] 12/17/17 11:47 [id number] 12/17/17 11:47 PMRU Outcome: ADL's/ADL Transfers Orders/Interventions Occupational Therapy Evaluation & Treatment Communication Tool in Patient Room Device Yes Patient to receive OT 5x/wk for 60-120 Therex min/day Self Care Management Group Therapy Neuromuscular ReEducation UE/LE ADL's with Assist Yes ADL Transfers with Assist Yes Toileting: Transfers,Clothing Management Yes ,Hygeine w/Assist Light Kitchen/Laundry w/Assist Yes Progression Toward Outcome/Goals Progressing Outcome/Goals Met Pt and family participated in family training session during ADL routine this date. Reviewed d/c instructions including recommendations for supervision- steadying assistance for all ADLs, especially in standing portion, pt and family verbalized understanding. in agreement to get gait belt for use at home , discussed with SW. Cardiovascular- Improve/Maintain Start: 12/07/17 13:26 Freq: QSHIFT Status: Active Target: Protocol: Activity Type Activity Date Activity User E-Sign Co-Sign Detail Recorded Client Recorded Date Recorded By Document 12/17/17 00:52 [id number] [id number] 12/17/17 00:53 [id number] 12/17/17 00:52 PMRU Outcome: Cardiovascular Vital Signs q Shift for 48hrs Then BID Yes Daily Weight Ordered No Current Cardiovascular Outcome/Goal Maintain/ Achieve Hemodynamic Stability Free of Abnormal Cardiac Symptoms Progression Toward Outcome/Goal Progressing Communication-Improve/Maintain Start: 12/06/17 16:04 Freq: DAILY Status: Active Target: Protocol: Activity Type Activity Date Activity User E-Sign Co-Sign Detail Recorded Client Recorded Date Recorded By Document 12/17/17 12:23 [id number] 12/17/17 12:23 [id number] 12/17/17 12:23 PMRU Outcome: Communication/Cognitive Status Outcome/Goals Use Comm Tools/ Devices Makes Needs Known Effectively Other Outcomes/Goals Language Comprehension Goals: residential goal: Pt will use compensatory strategies to demonstrate comprehension of complex, 3-4 part verbal and written information of moderate complexity, 90% accuracy given minimal cueing . Status: MET. STO: Pt will used compensatory strategies to demonstrate comprehension of complex 3-4 part verbal and written information, 80 % accuracy, given moderate extra time, and moderate skilled instruction and cueing. Status: MET Expressive Language Goals: foreign language professor goal: Pt will use conversational repair strategies to cooperatively find words in structured conversation, 100% accuracy, given extra time. Status: MET STO: Pt will use conversation repair strategies to cooperatively find words in structured language activities, 75% accuracy, given moderate skilled instruction and cueing. Status: METProblem Solving Goals: Long-Term Goal: Pt will use compensatory strategies to solve moderately complex routine problems, with 100% accuracy, Independently, for ADLs such as shopping, time and money management. Status: Progressing as expected. Short-Term Goal : Pt will use compensatory strategies to solve moderately complex routine problems, with 80% accuracy, given minimal skilled instruction and cueing. Status: Met Progression Toward Outcomes/Goals Progressing Outcome/Goals Met Comment Patient has made sgnificant progress and has met verbal comprehension and expressiomn goals at the 90% level, and problem solving goals at the 80% level. Speech therapy services are indicated as an outpatient after discharge . Coping/Psych-Improve/Maintain Start: 12/06/17 19:02 Freq: QSHIFT Status: Active Target: Protocol: Activity Type Activity Date Activity User E-Sign Co-Sign Detail Recorded Client Recorded Date Recorded By Document 12/17/17 00:52 [id number] [id number] 12/17/17 00:53 [id number] 12/17/17 00:52 PMRU Outcome: Coping/Psychosocial Coping Outcome/Goals Verbalization of Acceptance of Rehab Admit Verbalization of Sense of Control Over Health Status Willingness to Participate in Treatment Plan and Basic Needs Utilization of Available Support Systems Psychosocial Outcome/Goals Maintain/ Improve Emotional Health Cooperate/ Participate in Plan Progression Toward Outcome/Goals - Progressing Coping Progression Toward Outcome/Goals - Progressing Psychosocial DVT Prophylaxis- Improve/Maintain Start: 12/06/17 19:02 Freq: QSHIFT Status: Active Target: Protocol: Activity Type Activity Date Activity User E-Sign Co-Sign Detail Recorded Client Recorded Date Recorded By Document 12/17/17 00:52 [id number] [id number] 12/17/17 00:53 [id number] 12/17/17 00:52 PMRU Outcome: DVT Prophylaxis Outcome/Goals Remains Free of DVT Complies with DVT Prophylaxis /Treatment TEDS Stockings on Every AM, Off at HS Progression Toward Outcome/Goals Progressing Discharge Planning - Improve/Maintain Start: 12/06/17 19:02 Freq: DAILY Status: Active Target: Protocol: Activity Type Activity Date Activity User E-Sign Co-Sign Detail Recorded Client Recorded Date Recorded By Document 12/16/17 22:00 [id number] 12/17/17 00:52 [id number] 12/16/17 22:00 PMRU Outcome: Discharge Planning Update Patient Family No Outcome/Goals Demonstrates Understanding of Discharge Plan Progression Toward Outcome/Goals Progressing Education-Improve/Maintain Start: 12/06/17 19:02 Freq: QSHIFT Status: Active Target: Protocol: Activity Type Activity Date Activity User E-Sign Co-Sign Detail Recorded Client Recorded Date Recorded By Document 12/17/17 00:52 [id number] 12/17/17 00:53 [id number] 12/17/17 00:52 PMRU Outcome: Education Outcome/Goals Encourage Questions Progression Toward Outcome/Goals Progressing Neurological- Improve/Maintain Start: 12/06/17 19:02 Freq: QSHIFT Status: Active Target: Protocol: Activity Type Activity Date Activity User E-Sign Co-Sign Detail Recorded Client Recorded Date Recorded By Document 12/17/17 00:52 [id number] 12/17/17 00:53 [id number] 12/17/17 00:52 PMRU Outcome: Neurological Weakness/Aphasia Weakness Outcome/Goals Maintain/ Achieve Baseline Neurological Status Improve Neurological Status Prevent Avoidable Neurological Decline Maintain/ Improve Strength/ROM Progression Toward Outcome/Goals Progressing Safety- Improve/Maintain Start: 12/06/17 19:02 Freq: QSHIFT Status: Active Target: Protocol: Activity Type Activity Date Activity User E-Sign Co-Sign Detail Recorded Client Recorded Date Recorded By Document 12/17/17 00:52 [id number] [email or web address] 12/17/17 00:53 [id number] 12/17/17 00:52 PMRU Outcome: Safety Outcome/Goals Remain Free of Injury or Harm Cooperates with Safety Measures for Least Restrictive Environment Prevent Falls/ Injury Other Outcome/Goals impulsive tendency Progression Toward Outcome/Goals Progressing Outcome/Goals Met Comment KEELEY grier or KELVIN on Medicine Note: Length of Stay: 1 day Anticipated Discharge Destination: Home Tentative Discharge Date: 12/18/17 Discharged to: Home
--- NOTE | 2017-12-17 17:13 | PN ---
Progress Note Date of Service: 12/17/17 Note: Frandy YOBANY DEL RIO was visited. Therapy notes read and reviewed. Patient was discussed in interdisciplinary care rounds. He has done fairly well. I spoke with neurology about the DAPT timing and they recommend DAPT until he sees Dr. Prado in early December, at least. He will see Dr. Jones about a loop recorder. Current Medications: Active Medications Generic Name Dose Route Start Last Admin Trade Name Freq PRN Reason Stop Dose Admin Aspirin 81 mg 12/07/17 09:00 12/17/17 09:28 Aspirin Ec Tab* PO 81 mg DAILY ANA M Administration Clopidogrel Bisulfate 75 mg 12/07/17 09:00 12/17/17 09:27 Plavix Tab* PO 75 mg DAILY ANA M Administration Dimenhydrinate 50 mg 12/07/17 14:53 Dramamine Tab* PO Q6H PRN . Docusate Sodium 100 mg 12/06/17 21:00 12/17/17 09:28 Colace Cap* PO 100 mg BID ANA M Administration Fluoxetine HCl 10 mg 12/10/17 09:00 12/17/17 09:27 Prozac Cap* PO 10 mg DAILY ANA M Administration Gabapentin 200 mg 12/06/17 21:00 12/16/17 20:59 Neurontin Cap(*) PO 200 mg BEDTIME ANA M Administration Heparin Sodium (Porcine) 5,000 units 12/06/17 22:00 12/17/17 13:46 Heparin Vial(*) SUBCUT 5,000 units Q8HR ANA M Administration Levothyroxine Sodium 88 mcg 12/07/17 06:00 12/17/17 06:04 Synthroid Tab* PO 88 mcg DAILY@0600 ANA M Administration Magnesium Hydroxide 30 ml 12/06/17 14:47 Milk Of Magnesia Liq* PO Q6H PRN CONSTIPATION Melatonin 1 tab 12/17/17 21:00 Melatonin (Nf) PO BEDTIME ANA M Multivitamins/Minerals 1 tab 12/07/17 09:00 12/17/17 09:27 Theragran/Minerals Tab* PO 1 tab DAILY ANA M Administration Multivitamins/Minerals 1 cap 12/13/17 17:00 12/17/17 09:27 Preservision Areds 2 PO 1 cap 0800,1700 ANA M Administration Pto: (Tronolane 1 applic 12/11/17 21:00 12/16/17 21:05 Cream) TOPICAL Not Given BEDTIME ANA M Rosuvastatin Calcium 20 mg 12/11/17 17:00 12/16/17 17:10 Crestor (Nf) PO 20 mg 1700 ANA M Administration Scopolamine 1 patch 12/07/17 20:00 12/16/17 21:00 Transderm-Scop 1.5 Mg Patch* TRANSDERM 1 patch Q72H ANA M Administration Senna 2 tab 12/06/17 14:47 Senokot Tab* PO BEDTIME PRN CONSTIPATION Vital Signs: Vital Signs Temp Pulse Resp BP Pulse Ox 98.5 F 87 22 118/73 96 12/17/17 15:43 12/17/17 15:43 12/17/17 15:53 12/17/17 15:43 12/17/17 15:53 Exam: LUNGS: CLear to auscultation bilaterally HEART: Regular rate and rhythm ABDOMEN: Soft, +BS, non-tender, non-distended EXTREMITIES: No edema NEUROLOGIC: CN II-XII intact. Strength 5/5. Normal Sensation. Mild Aphasia. Left dysmetria Assessment/Plan: 1. 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 ASA/Plavix. Prozac. Eventual loop recorder. f/u with neurology. 2. Vertigo: Neurology felt this was BPPV, unclear if cerebellar CVA contributing. Transdermal Scopolamine. May need ENT referral after d/c 3. DVT Prophylaxis: Heparin S/Q 4. Hypothyroidism: Synthroid 5. Advanced Directives: Full code 6. Prostate CA: s/p prostatectomy 7. Hypercholesterolemia: Crestor. 12/17/17 17:13
[2017-12-17] MEDS: PTO:Rosuvastatin (NF) 20 MG TAB PO SCH (17:31)
[2017-12-17] MEDS ORDERED: MELATONIN 1 MG PO SCH (21:00)
[2017-12-17] MEDS: Gabapentin CAP(*) 100 MG PO SCH (21:20)
[2017-12-17] MEDS: TRONOLANE TOPICAL SCH (21:23)
[2017-12-18] MEDS: Heparin VIAL(*) 5000 UNITS/ML VIAL (FIVE THOUSAND) SUBCUT SCH (05:25)
[2017-12-18] MEDS: Levothyroxine TAB* 88 MCG TAB PO SCH (05:25)
[2017-12-18 06:30] VITALS: BP 130/75
[2017-12-18] MEDS: PTO:Multivitamins/Minerals AREDS2 cap PO SCH (10:15)
[2017-12-18] MEDS: FLUoxetine CAP* 10 MG PO SCH (10:15)
[2017-12-18] MEDS: Multivitamins/Minerals TAB PO SCH (10:15)
[2017-12-18] MEDS: Aspirin EC TAB* 81 MG TAB.EC PO SCH (10:15)
[2017-12-18] MEDS: Clopidogrel TAB* 75 MG PO SCH (10:15)
[2017-12-18] MEDS: Docusate CAP* 100 MG PO SCH (10:15)
--- NOTE | 2017-12-19 05:54 | DS ---
CC: Dr. Max Newsome * DISCHARGE SUMMARY: DATE OF ADMISSION: 12/06/17 DATE OF DISCHARGE: 12/18/17 DISCHARGE DIAGNOSES: 1. Multiple CVA's including globus pallidus CVA, right posterior frontal lobe CVA, and left cerebellar peduncle CVA. 2. Hypertension. 3. Hyperlipidemia. 4. Vertigo. 5. History of prostate cancer. HISTORY OF ILLNESS AND HOSPITAL COURSE: For a complete history the events leading up to his rehab stay, please see the history and physical dictated by me on 12/06/17. After being admitted to the rehab unit, vertigo was his most limiting factor. He was started on a scopolamine patch after he failed meclizine and valium. The scopolamine patch was very effective in controlling his symptoms of vertigo. He remained on dual antiplatelet therapy, that is a baby aspirin and Plavix for secondary stroke prevention while on the rehab unit. It was felt that he would remain on this until he was seen by outpatient neurology. The patient was maintained on heparin for DVT prophylaxis. He otherwise is medically stable. He was seen by both physical therapy and occupational therapy, and made good gain for both disciplines. With physical therapy, at the time of admission, the patient required min assist to do a transfer. He was contact guard to min assist to ambulate. With occupational therapy at the time of admission, the patient required mod assist for lower body dressings, set up for upper body dressings, contact guard for toileting and toilet transfers. By the time of discharge, the patient was still requiring some assistance to put on shoes and socks at the time of discharge. Bathing was also still requiring supervision. Transfers were independent, ambulation was independent. The patient's was brought in for family training prior to discharge. The patient was also noted to be aphasic. He was seen by speech therapy while on the rehab unit. At the time of discharge, the patient was still having some difficulties with problem solving goals. It was felt that he would need ongoing speech therapy after discharge. The patient was discharged home on 12/18/17. DISCHARGE DIET: Regular. DISCHARGE MEDICATIONS: Included: 1. Crestor 20 mg daily. 2. Prozac 10 mg daily. 3. Plavix 75 mg daily. 4. Aspirin 81 mg daily. 5. Gabapentin 200 mg at bedtime. 6. Synthroid 88 mcg daily. 7. Scopolamine patch 1.5 mg, one patch behind his ear, changing every 72 hours. SERVICES AFTER DISCHARGE: Through the visiting nurse service, he will have home nursing, home physical therapy, home speech therapy, home occupational therapy, and a home health aide. Follow up with Dr. Prado, as well as with Dr. Tsang regarding a loop recorder, and he will also follow up with his primary care doctor Dr. Max Newsome. Time for this discharge was approximately 55 minutes; greater than half of that was spent with his and the patient himself discussing his post rehab therapies, investigative tests including a loop recorder, medications including aspirin, Plavix, Prozac and Crestor, ongoing therapy, and the need to be cleared by a doctor in order to drive. [id number]/CPS #: [id number] MTDWolf
== END 2017-12-18 13:30 | disposition home health service (06) | DRG 57 ==
LOC: PMRU 14:20
PROVIDERS: ADMIT Physical Medicine & Rehabilitation; ATTEND Physical Medicine & Rehabilitation
PROC: F07Z5ZZ Bed Mobility Treatment (ICD-10-PCS; principal; 2017-12-06)
PROC: F07Z9ZZ Gait Training/Functional Ambulation Treatment (ICD-10-PCS; 2017-12-06)
PROC: F07Z8ZZ Transfer Training Treatment (ICD-10-PCS; 2017-12-06)
PROC: F08Z0ZZ Bathing/Showering Techniques Treatment (ICD-10-PCS; 2017-12-06)
PROC: F08Z1ZZ Dressing Techniques Treatment (ICD-10-PCS; 2017-12-06)
PROC: F08Z3ZZ Feeding/Eating Treatment (ICD-10-PCS; 2017-12-06)
PROC: F06Z3ZZ Aphasia Treatment (ICD-10-PCS; 2017-12-06)
DX: I69.320 Aphasia following cerebral infarction (principal); H81.12 Benign paroxysmal vertigo, left ear; H81.42 Vertigo of central origin, left ear; R26.81 Unsteadiness on feet; E03.9 Hypothyroidism, unspecified; I10 Essential (primary) hypertension; N40.0 Benign prostatic hyperplasia without lower urinary tract symptoms; R27.8 Other lack of coordination; E78.5 Hyperlipidemia, unspecified; Z85.46 Personal history of malignant neoplasm of prostate; Z79.82 Long term (current) use of aspirin; Z79.899 Other long term (current) drug therapy; Z88.2 Allergy status to sulfonamides
CPT/HCPCS: 36415; 80053; 85025; A9270-GY; G0515-GO; J1644

== ENCOUNTER 2018-06-17 07:53 | Day surgery (SDC) | payer MEDICARE, BC ==
[~2018-06-17 07:53] MED LIST: Acetaminophen TAB* 325 MG PO PRN; Buffered Lidocaine 1% SYRIN* 1 ML/SYRINGE INTRADERM ONE
[2018-06-17] MEDS ORDERED: Midazolam* 1 MG/ML 2 ML VIAL (2 MG) ONE (09:20)
[2018-06-17] MEDS ORDERED: fentaNYL* 50 MCG/ML 2 ML VIAL (100 MCG VIAL) ONE (09:20)
[2018-06-17 10:46] VITALS: BP 139/67
[2018-06-17] MEDS ORDERED: Tropicamide 1% OPTH.SOL* BTL ONE (11:38)
[2018-06-17] MEDS ORDERED: Ketorolac 0.5% OPHTH (NF) 0.5 % 5 ML BTL ONE (11:38)
[2018-06-17] MEDS ORDERED: Phenylephrine 2.5% OPTH.SOL* 2 ML BTL ONE (11:38)
[2018-06-17] MEDS ORDERED: Cyclopentolate 1% OPTH.SOL* 2 ML BTL ONE (11:38)
[2018-06-17] MEDS ORDERED: Tetracaine 0.5% OPTH.SOL 4 ML* 1 DROP BTL ONE (11:38)
[2018-06-17] MEDS ORDERED: Neomycin/Polymy/Dex OPHTH.OIN* 3.5 GM ONE (11:38)
[2018-06-17] MEDS ORDERED: Lidocaine 1%* 5 ML VIAL ONE (11:38)
--- NOTE | 2018-06-17 16:48 | OP ---
DATE OF OPERATION: 06/17/18 [facility] DATE OF : 38 SURGEON: Pedrito Ahmadi MD INDUSTRIAL CONTROLS TECHNICIAN: None. ANESTHESIA: Topical with intravenous sedation. PRE-OP DIAGNOSIS: Cataract in the right eye, status post LASIK surgery. POST-OP DIAGNOSIS: Cataract in the right eye, status post LASIK surgery. OPERATIVE PROCEDURE: Phacoemulsification and cataract extraction with posterior chamber intraocular lens implant, right eye. COMPLICATIONS: None. BLOOD LOSS: None. DESCRIPTION OF PROCEDURE: The patient was brought to the operating room and given intravenous sedation. A drop of tetracaine was placed in his right eye. The patient was prepped and draped in the usual sterile fashion for ophthalmic surgery and attention was directed to the right eye where a speculum was placed. A paracentesis was created at the 11 o'clock position and 0.1 cc of 1% preservative- free lidocaine was injected into the anterior chamber followed by DisCoVisc. The eye was digitally stabilized while a 2.75-mm keratome was used to create a triplanar clear corneal incision at the 9 o'clock position. A continuous curvilinear capsulorrhexis was created with a cystotome and Utrata forceps. BSS on a cannula was used to hydrodissect the lens from the capsule. Phacoemulsification was performed in a [id number] technique to create 4 fragments, which were removed. Residual cortical material was removed with irrigation and aspiration. The capsular bag was polished. Provisc was used to inflate the capsular bag and obtain proper pressure as measured by tonometry. The ORA instrument was used to help guide the lens choice. The ORA confirmed preoperative lens choice. An AU00T0 18.5 diopter lens was inserted into the capsular bag. Irrigation and aspiration were performed to remove viscoelastic from the eye. BSS on a cannula was used to hydrate the corneal stroma and seal the wound. At the end of the case, the pupil was round. The lens was centered and stable, the eye pressure appeared normal and the wound was watertight. The speculum was removed and topical Maxitrol ointment was placed on the surface of the eye. The eye was closed, patched, and shielded and the patient was sent to the recovery room in stable condition with postop instructions and followup appointment given. [id number]/[facility] #: [id number] [facility] CENTER[facility]
== END 2018-06-17 10:47 | disposition home or self-care (01) ==
LOC: OREAST 07:53
PROVIDERS: ATTEND Ophthalmology
DX: H25.11 Age-related nuclear cataract, right eye (principal); E78.5 Hyperlipidemia, unspecified; Z85.46 Personal history of malignant neoplasm of prostate; E03.9 Hypothyroidism, unspecified; I69.898 Other sequelae of other cerebrovascular disease; R20.8 Other disturbances of skin sensation
CPT/HCPCS: A9270-GY; J2250; J3010; V2632

== ENCOUNTER 2018-06-24 08:19 | Day surgery (SDC) | payer MEDICARE, BC ==
[2018-06-24] MEDS ORDERED: Midazolam* 1 MG/ML 2 ML VIAL (2 MG) ONE (09:16)
[2018-06-24] MEDS ORDERED: fentaNYL* 50 MCG/ML 2 ML VIAL (100 MCG VIAL) ONE (09:17)
[2018-06-24 10:39] VITALS: BP 139/68
--- NOTE | 2018-06-24 11:41 | OP ---
OPERATIVE REPORT: DATE OF OPERATION: 06/24/18 - [facility] DATE OF : 38 SURGEON: Dr. Pedrito Ahmadi. UTILITY PORTER: None. ANESTHESIA: Topical with intravenous sedation. PRE-OP DIAGNOSIS: Cataract, left eye, status post LASIK. POST-OP DIAGNOSIS: Cataract, left eye, status post LASIK. OPERATIVE PROCEDURE: Phacoemulsification and cataract extraction with posterior chamber intraocular lens implant, left eye. COMPLICATIONS: None. BLOOD LOSS: None. OPERATIVE FINDINGS: The patient was brought to the operating room and received intravenous sedation as well as a drop of tetracaine to the left eye. The patient was prepped and draped in the usual sterile fashion for ophthalmic surgery and attention was directed to the left eye where a speculum was placed. A paracentesis was created at the 5 o'clock position and 0.1 cc of 1% preservative-free lidocaine was injected into the anterior chamber followed by DisCoVisc. A 2.75-mm keratome was used to create a triplanar clear corneal incision at the 3 o'clock position. Care was taken with all incisions to avoid the LASIK flap which was located more centrally. A continuous curvilinear capsulorrhexis was created with a cystotome and Utrata forceps. BSS on a cannula was used to hydrodissect the lens from the capsule. Phacoemulsification was performed in a [id number] technique to create 4 fragments which were removed. Residual cortical material was removed with irrigation and aspiration. The capsular bag was polished. The capsular bag was inflated with ProVisc. The surface of the eye was lubricated. The eye pressure was checked with a tonometer. The ORA instrument was employed and guided the lens to toward an AU00T0 20.5 diopter. That lens was inserted into the eye. Irrigation and aspiration was used to remove viscoelastic from the eye. BSS on a cannula was used to hydrate the corneal stroma and seal the wound. At the end of the case, the pupil was round. The lens was centered and stable. The eye pressure appeared normal and the wound was water tight. The speculum was removed and topical Maxitrol ointment was placed on the surface of the eye. The eye was closed, patched, and shielded; and the patient was sent to the recovery room in stable condition with post operative instructions and followup appointment given. [id number]/[facility] #: [id number] [place]
[2018-06-24] MEDS ORDERED: Phenylephrine OPHTH SOL 2.5%* 2 ML ONE (14:53)
[2018-06-24] MEDS ORDERED: Tetracaine 0.5% OPTH.SOL 4 ML* 1 DROP BTL ONE (14:53)
[2018-06-24] MEDS ORDERED: Lidocaine 1%* 5 ML VIAL ONE (14:53)
[2018-06-24] MEDS ORDERED: Tropicamide 1% OPTH.SOL* BTL ONE (14:53)
[2018-06-24] MEDS ORDERED: Neomycin/Polymy/Dex OPHTH.OIN* 3.5 GM ONE (14:53)
[2018-06-24] MEDS ORDERED: Ketorolac 0.5% OPHTH (NF) 0.5 % 5 ML BTL ONE (14:53)
[2018-06-24] MEDS ORDERED: Cyclopentolate 1% OPTH.SOL* 2 ML BTL ONE (14:53)
== END 2018-06-24 10:40 | disposition home or self-care (01) ==
LOC: OREAST 08:19
PROVIDERS: ATTEND Ophthalmology
DX: H25.12 Age-related nuclear cataract, left eye (principal); E03.9 Hypothyroidism, unspecified; Z85.46 Personal history of malignant neoplasm of prostate; Z86.73 Personal history of transient ischemic attack (TIA), and cerebral infarction without residual deficits; I10 Essential (primary) hypertension
CPT/HCPCS: A9270-GY; J2250; J3010; V2632

== ENCOUNTER 2018-10-19 09:52 | Emergency (ER) | payer BC, MEDICARE ==
[2018-10-19 10:09] VITALS: BP 121/57
--- NOTE | 2018-10-19 10:19 | UC ---
UC General HPI - HPI Summary HPI Summary: Patient is a 78-year-old male who presents to the urgent care with a chief complaint of having difficulty expressing his words. Visual reports that approximately 3 weeks ago he had an episode where he was weak in the right side and he fell into the right side. He did not seek medical attention at that point. Today he is complaining of weakness, loose stools, and fatigue. However , the reports that he is be having speech aphasia since last Saturday. She noticed this episodes first when she was having dinner with the and friends and yesterday when he was talking to his son. Therefore they came to the urgent care for further assessment. - History of Current Complaint Chief Complaint: UCDizziness Stated Complaint: LOOSE STOOL NAUSEA Time Seen by Provider: 10/19/18 09:58 Hx Obtained From: Patient, Family/Bushing Press Operator Onset/Duration: Gradual Onset Current Severity: None Pain Intensity: 0 - Allergy/Home Medications Allergies/Adverse Reactions: Allergies Allergy/AdvReac Type Severity Reaction Status Date / Time Sulfa (Sulfonamide Allergy Intermediate "FLU LIKE Verified 06/17/18 08:36 Antibiotics) SYMPTOMS" LACTOSE INTOLERENCE Allergy Mild GI Upset Uncoded 06/17/18 08:36 PMH/Surg Hx/FS Hx/Imm Hx Previously Healthy: Yes Cardiovascular History: Hypertension Neurological History: TIA, CVA - Surgical History Surgical History: Yes Surgery Procedure, Year, and Place: Loop Recorder 03/18. RT KNEE SCOPE,. LT HEEL SPURS,. TONSILS,. PROSTATECTOMY,. APRIL FUNDOPLICATION,. LASIK ON EYES ,. Appendix 06/2016;. Lumbar Laminectomy - Family History Known Family History: Positive: Other - meniere's disease (mother) Negative: Cardiac Disease, Hypertension, Diabetes - Social History Alcohol Use: Daily Alcohol Amount: 2 ounces of wine before bed Substance Use Type: None Smoking Status (MU): Never Smoked Tobacco Have You Smoked in the Last Year: No - Immunization History Most Recent Influenza Vaccination: 2017 Most Recent Tetanus Shot: >5yrs Most Recent Pneumonia Vaccination: >5yrs Review of Systems All Other Systems Reviewed And Are Negative: Yes Constitutional: Positive: Negative Skin: Positive: Negative Eyes: Positive: Negative ENT: Positive: Negative Respiratory: Positive: Negative Cardiovascular: Positive: Negative Gastrointestinal: Positive: Negative Genitourinary: Positive: Negative Motor: Positive: Negative Neurovascular: Positive: Negative Musculoskeletal: Positive: Negative Neurological: Positive: Other - Speech aphasia Psychological: Positive: Negative Is Patient Immunocompromised?: No Physical Exam - Summary Physical Exam Summary: VITAL SIGNS: Reviewed. GENERAL: Patient is a well developed and nourished male who is lying comfortably in the stretcher. Patient is not in any acute respiratory distress. HEAD AND FACE: No signs of trauma. No ecchymosis, hematomas or skull depressions. No sinus tenderness. EYES: PERRLA, EOMI x 2, No injected conjunctiva, no nystagmus. EARS: Hearing grossly intact. Ear canals and tympanic membranes are within normal limits. MOUTH: Oropharynx within normal limits. NECK: Supple, trachea is midline, no adenopathy, no JVD, no carotid bruit, no c- spine tenderness, neck with full ROM. CHEST: Symmetric, no tenderness at palpation LUNGS: Clear to auscultation bilaterally. No wheezing or crackles. CVS: Regular rate and rhythm, S1 and S2 present, no murmurs or gallops appreciated. ABDOMEN: Soft, non-tender. No signs of distention. No rebound no guarding, and no masses palpated. Bowel sounds are normal. EXTREMITIES: FROM in all major joints, no edema, no cyanosis or clubbing. NEURO: Alert and oriented x 3. No acute neurological deficits. Speech is normal and follows commands. NIH score is equal to 0. GCS is 15. SKIN: Dry and warm Triage Information Reviewed: Yes Appearance: Well-Appearing Vital Signs: Initial Vital Signs Temp 99 F 10/19/18 09:57 Pulse 72 10/19/18 09:57 Resp 16 10/19/18 09:57 BP 121/57 10/19/18 09:57 Pulse Ox 97 10/19/18 09:57 Vital Signs Reviewed: Yes Course/Dx - Course Course Of Treatment: Patient has multiple comorbidities including a TIA and CVA and his and Plavix. However because of the speech aphasia and falling because of right-sided weakness I discussed the case with Dr. Toth the ER attending and [facility] who accepted the patient for transfer. The patient and the patient's declined ambulance transfer. The is going to try the patient to the emergency department. The understands the risk and benefits of the ambulance transport but they still declined. They signed AMA form. - Diagnoses Provider Diagnosis: Aphasia Discharge - Sign-Out/Discharge Documenting (check all that apply): Patient Departure All imaging exams completed and their final reports reviewed: No Studies - Discharge Plan Condition: Stable Disposition: HOME-RECOMMEND TO ED Patient Education Materials: Aphasia (DC) Referrals: Max Newsome MD [Primary Care Provider] - Additional Instructions: Patient was discharged to the emergency department. They declined ambulance transfer. - Billing Disposition and Condition Condition: STABLE Disposition: Home-Recommend to ED
== END 2018-10-19 10:19 | disposition left against medical advice (07) ==
LOC: UCEAST 09:52
DX: R47.01 Aphasia (principal); I10 Essential (primary) hypertension; Z86.73 Personal history of transient ischemic attack (TIA), and cerebral infarction without residual deficits; Z88.2 Allergy status to sulfonamides
CPT/HCPCS: 99212; G0463

== ENCOUNTER → 2018-10-19 | Emergency (ER) | payer MEDICARE, BC ==
[~2018-10-19] MED LIST changes: -Acetaminophen TAB* 325 MG PO PRN; -Buffered Lidocaine 1% SYRIN* 1 ML/SYRINGE INTRADERM ONE; +NS 0.9% 1000 ML** 1,000 ML IV ONE
[2018-10-19 11:13] LABS: Urine Appearance Clear; Urine Bilirubin Negative (Negative); Urine Blood Negative (Negative); Urine Color Yellow; Urine Glucose Negative (Negative); Urine Ketones Negative (Negative); Urine Nitrite Negative (Negative); Urine Protein Negative (Negative); Urine Specific Gravity 1.024 (1.010-1.030); Urine Urobilinogen Negative (Negative)
[2018-10-19 11:17] VITALS: BP 148/74
--- NOTE | 2018-10-19 11:24 | ED ---
Neurological HPI - HPI Summary HPI Summary: This patient is a 78 year old M sent to ED from urgent care with a chief complaint of aphasia since two days ago. Ten days ago, patient had right-sided weakness/lightheadedness and a fall, but did not seek medical attention. Patient also reports recently stumbling on the porch. Two days ago, patient was exercising for 2-3 hours outside in the heat. Today, patient reports generalized weakness, lightheadedness, chills, fatigue, loose stools. Patient denies N/V/D and CP. He states he usually has mild edema. Patient has a history of CVA last year and has residual aphasia. The patient rates the pain 0/10 in severity. Symptoms aggravated by nothing. Symptoms alleviated by nothing. - History of Current Complaint Chief Complaint: EDGeneral Stated Complaint: SICK FOR ABOUT A MONTH PER PT Time Seen by Provider: 10/19/18 10:54 Hx Obtained From: Patient, Family/Grocery Stock Clerk - Onset/Duration: Gradual Onset, Started days ago - Fall 10 days ago, Still Present, Worse Since - Aphasia 2 days ago Timing: Constant Neurological Deficit Location: Generalized - Weakness Pain Intensity: 0 Pain Scale Used: 0-10 Numeric Character: Lightheaded, Weak, Impaired Speech Aggravating: Nothing Alleviating: Nothing Associated Signs and Symptoms: Positive: Weakness, Impaired Speech, Lightheadness. Negative: Nausea/Vomiting, Chest Pain - Additional Pertinent History Primary Care Physician: [id number] - Allergy/Home Medications Allergies/Adverse Reactions: Allergies Allergy/AdvReac Type Severity Reaction Status Date / Time Sulfa (Sulfonamide Allergy Intermediate "FLU LIKE Verified 10/19/18 10:35 Antibiotics) SYMPTOMS" lactose Allergy GI Upset Verified 10/19/18 10:35 PMH/Surg Hx/FS Hx/Imm Hx Endocrine/Hematology History: Reports: Hx Thyroid Disease - Hypothyroid Denies: Hx Diabetes Cardiovascular History: Reports: Hx Hypercholesterolemia, Hx Hypertension, Hx Pacemaker/ICD - Loop monitor-left upper chest, Other Cardiovascular Problems/ Disorders - On Plavix due to strokes Respiratory History: Denies: Hx Asthma, Hx Chronic Obstructive Pulmonary Disease (COPD), Other Respiratory Problems/Disorders GI History: Reports: Hx Gastroesophageal Reflux Disease - corrected with surgery 1994, April Fundoplication, Other GI Disorders - diarrhea/constipation - lactose intolerant Denies: Hx Hiatal Hernia, Hx Ulcer History: Reports: Hx Kidney Stones - 1979-passed on own, Other Problems/ Disorders - Prostatectomy-2000- prostate cancer Denies: Hx Renal Disease Musculoskeletal History: Reports: Hx Arthritis - knees, Hx Back Problems - stenosis, Other Musculoskeletal History - Pseudo gout -bilateral knees Denies: Hx Rheumatoid Arthritis, Hx Osteoporosis Sensory History: Reports: Hx Cataracts - Bilateral, Hx Contacts or Glasses - Reading Denies: Hx Hearing Aid Opthamlomology History: Reports: Hx Cataracts - Bilateral, Hx Contacts or Glasses - Reading Neurological History: Reports: Hx CVA - ischemic stroke 10/2017, Other Neuro Impairments/Disorders - Neuropathy of feet and lower legs. History of Vertigo Psychiatric History: Denies: Hx Panic Disorder - Cancer History Cancer Type, Location and Year: prostatectomy due to CA. SKIN CARCINOMA Hx Chemotherapy: No Hx Radiation Therapy: No - Surgical History Surgery Procedure, Year, and Place: Loop Recorder 03/18. RT KNEE SCOPE,. LT HEEL SPURS,. TONSILS,. PROSTATECTOMY,. APRIL FUNDOPLICATION,. LASIK ON EYES ,. Appendix 06/2016;. Lumbar Laminectomy Hx Anesthesia Reactions: Yes - Pt doesn't like fentanyl-states it made him feel sick after appendectomy Infectious Disease History: No Infectious Disease History: Reports: Hx Clostridium Difficile - about 10 years ago, Hx Human Immunodeficiency Virus (HIV) - prostate cancer, skin leasions Denies: Hx Hepatitis, Hx of Known/Suspected MRSA, Hx Shingles, Hx Tuberculosis, Hx Known/Suspected VRE, Hx Known/Suspected VRSA, History Other Infectious Disease, Traveled Outside the [place] in Last 30 Days - Family History Known Family History: Positive: Other - meniere's disease (mother) Negative: Cardiac Disease, Hypertension, Diabetes - Social History Alcohol Use: Daily Alcohol Amount: 2 ounces of wine before bed Substance Use Type: Reports: None Smoking Status (MU): Never Smoked Tobacco Have You Smoked in the Last Year: No Review of Systems Positive: Chills, Fatigue Negative: Chest Pain Gastrointestinal: Other - Loose stools Negative: Vomiting, Diarrhea, Nausea Neurological: Other - Lightheadedness, subjective aphasia Positive: Weakness All Other Systems Reviewed And Are Negative: Yes Physical Exam - Summary Physical Exam Summary: GENERAL: Patient is a well-developed and nourished M who is lying comfortable in the stretcher. Patient is not in any acute respiratory distress. HEAD AND FACE: Normocephalic EYES: PERRLA, EOMI x 2. EARS: Hearing grossly intact. MOUTH: Oropharynx within normal limits. NECK: Supple, trachea is midline, no adenopathy, no JVD, no carotid bruit. CHEST: Symmetric, no tenderness at palpation LUNGS: Clear to auscultation bilaterally. No wheezing or crackles. CVS: Regular rate and rhythm, S1 and S2 present, no murmurs or gallops appreciated. ABDOMEN: Soft, non-tender. Bowel sounds are normal. No abnormal abdominal pulsations. EXTREMITIES: 1+ pitting edema NEURO: Alert and oriented x 3. No acute neurological deficits. Speech is normal and follows commands. Cranial nerves II-XII grossly intact, no dysmetria finger to nose, nml heel to lazo SKIN: Dry and warm GCS: 15 Triage Information Reviewed: Yes Vital Signs On Initial Exam: Initial Vitals Temp Pulse Resp BP Pulse Ox 98.8 F 75 14 138/77 98 10/19/18 10:33 10/19/18 10:33 10/19/18 10:33 10/19/18 10:33 10/19/18 10:33 Vital Signs Reviewed: Yes Diagnostics - Vital Signs Vital Signs Temp Pulse Resp BP Pulse Ox 10/19/18 11:14 66 20 148/74 97 10/19/18 11:13 98 10/19/18 11:09 68 24 97 10/19/18 10:58 67 97 10/19/18 10:33 98.8 F 75 14 138/77 98 - Laboratory Lab Results: Lab Results 10/19/18 Range/Units 11:00 Urine Color Yellow Urine Appearance Clear Urine pH 5.0 (5-9) Ur Specific Wallace 1.024 (1.010-1.030) Urine Protein Negative (Negative) Urine Ketones Negative (Negative) Urine Blood Negative (Negative) Urine Nitrate Negative (Negative) Urine Bilirubin Negative (Negative) Urine Urobilinogen Negative (Negative) Ur Leukocyte Esterase Negative (Negative) Urine Glucose Negative (Negative) Urine Ascorbic Acid * A (Negative) Result Diagrams: 10/19/18 11:28 10/19/18 11:28 Lab Statement: Any lab studies that have been ordered have been reviewed, and results considered in the medical decision making process. - Radiology CXR Radiology Interpretation Completed By: Radiologist Summary of Radiographic Findings: NO ACTIVE CARDIOPULMONARY DISEASE IS NOTED. Dr. Toth has reviewed this radiology report. - CT Brain CT Interpretation Completed By: Radiologist Summary of CT Findings: Chronic ischemic white matter change. No evidence of intracranial mass or hemorrhage is noted. Dr. Toth has reviewed this radiology report. - EKG 1114 Cardiac Rate: NL - 65 BPM EKG Rhythm: Sinus Rhythm EKG Comparison: No Significant Change - 12/03/2017 Summary of EKG Findings: NSR at 65 BPM, 1st degree AV block, similar to EKG done 12/03/2018. Re-Evaluation - Re-Evaluation First Eval Re-Evaluation Time: 12:40 Comment: Discussed results with patient. Given that the patient is having expressive aphasia and falling to the right, he should be admitted to [facility] for an MRI and stroke workup. I told him that given that his symptoms have been going on for a few days, the MRI would not be considered emergent, and he would be able to get it if admitted. However, he does not want to be admitted. Patient is awake, alert, and oriented, capable of making informed decisions. Therefore, he will be allowed to sign-out AMA. Patient will be signed-out AMA with dx of weakness and expressive aphasia. Course/Dx - Course Course Of Treatment: This patient is a 78 year old M sent to ED from urgent care with a chief complaint of aphasia since two days ago. EKG at 1114 revealed NSR at 65 BPM, 1st degree AV block, similar to EKG done 12/03/2018. In the ED course, patient received fluids. Blood work revealed RBC 3.70L, Hgb 11.8L, Hct 35L, MCH 32H, Absolute neuts 8.6H, Absolute monos 1.1H. UA obtained. Brain CT revealed chronic ischemic white matter change. No evidence of intracranial mass or hemorrhage is noted. CXR revealed NO ACTIVE CARDIOPULMONARY DISEASE IS NOTED. Discussed results with patient. Given that the patient is having expressive aphasia and falling to the right, he should be admitted to [facility] for an MRI and stroke workup. I told him that given that his symptoms have been going on for a few days, the MRI would not be considered emergent, and he would be able to get it if admitted. However, he does not want to be admitted. Patient is awake, alert, and oriented, capable of making informed decisions. Therefore, he will be allowed to sign-out AMA. Patient will be signed-out AMA with dx of weakness and expressive aphasia. Strict precautions were given to return for changing or worsening symptoms. He is hemodynamically stable and safe for discharge. Strict return precautions given and he will otherwise follow up with his PCP. - Diagnoses Provider Diagnoses: Weakness, Expressive aphasia Discharge - Sign-Out/Discharge Documenting (check all that apply): Patient Departure - AMA Patient Received Moderate/Deep Sedation with Procedure: No - Discharge Plan Condition: Good Disposition: AGAINST MEDICAL ADVICE Patient Education Materials: Aphasia (DC), Weakness (ED), Stroke (DC) Referrals: Max Newsome MD [Primary Care Provider] - 3 Days Additional Instructions: Follow up with your primary care physician in 1-3 days for a brain MRI. RETURN TO THE EMERGENCY DEPARTMENT FOR CHANGING OR WORSENING SYMPTOMS. - Billing Disposition and Condition Condition: GOOD Disposition: Against Medical Advice - Attestation Statements Document Initiated by Scribe: Yes Documenting Scribe: Lopez Moore Provider For Whom Scribe is Documenting (Include Credential): Gary Toth MD Scribe Attestation: Lopez Tucker, scribed for Gary Toth MD on 10/21/18 at 0744. Scribe Documentation Reviewed: Yes Provider Attestation: The documentation as recorded by the Lopez mahan accurately reflects the service I personally performed and the decisions made by , Gary Toth MD Status of Scribe Document: Viewed
[2018-10-19 11:36] LABS: ABS Monocytes 1.1 10^3/ul (0-0.8); ABS Neutrophils 8.6 10^3/ul (1.5-7.7); Eosinophil % 0.2 %; Hematocrit 35 % (42-52); Hemoglobin 11.8 g/dL (14.0-18.0); Lymphocyte % 8.9 %; Mean Corpuscular HGB Conc 34 g/dL (31-36); Mean Corpuscular Hemoglobin 32 pg (27-31); Mean Corpuscular Volume 93 fL (80-94); Mean Platelet Volume 8.4 fL (7.4-10.4); Platelet Count 152 10^3/uL (150-450); Red Cell Distribution Width 14 % (10-15); White Blood Count 10.7 10^3/uL (3.5-10.8)
[2018-10-19 11:52] LABS: Activated Partial Thrombo Time 28.1 seconds (26.0-38.0); INR 1.11 (0.82-1.09)
[2018-10-19 11:53] LABS: Albumin 3.5 g/dL (3.2-5.2); Albumin/Globulin Ratio 1.4 (1-3); Calcium 8.3 mg/dL (8.6-10.3); EGFR African American 102.4 (>60); EGFR Non-African American 84.6 (>60); Globulin 2.5 g/dL (2-4); Magnesium 1.9 mg/dL (1.9-2.7); Potassium 4.2 mmol/L (3.5-5.0); Total Bilirubin 0.5 mg/dL (0.2-1.0)
[2018-10-19 12:41] LABS: T4, Total 8.26 mcg/dL (6.09-12.23)
[2018-10-19 12:45] LABS: TSH (Thyroid Stimulating Horm) 1.37 mcIU/mL (0.34-5.60)
== END | disposition left against medical advice (07) ==
LOC: ED 10:30
DX: I69.320 Aphasia following cerebral infarction (principal); R53.1 Weakness; Z88.2 Allergy status to sulfonamides; E03.9 Hypothyroidism, unspecified; E78.00 Pure hypercholesterolemia, unspecified; I10 Essential (primary) hypertension; K21.9 Gastro-esophageal reflux disease without esophagitis; Z95.810 Presence of automatic (implantable) cardiac defibrillator; Z79.02 Long term (current) use of antithrombotics/antiplatelets
CPT/HCPCS: 36415; 70450; 71045; 80053; 81003; 83605; 83735; 83880; 84436; 84443; 84484; 85025; 85610; 85730; 86618; 93005; 96360; 96361; 99212; 99282; G0463

== ENCOUNTER 2019-06-11 11:07 | Emergency (ER) | payer MEDICARE, BC ==
--- OUTSIDE RECORDS SUMMARY | 2019-06-11 11:13 | XMS REPORT | Continuity of Care Document ---
:1940 External Reference #:[id number] Author Name Ottoniel Prado M.D. (trans[facility] Address [address], [place] [address] Care Team Providers Name Role Phone Max Newsome MD - Family Medicine Care Team Information Fingerprint Clerk [phone] Problems Active Problems Provider Date Electrocardiogram abnormal Margie Tsang M.D. Onset: 11/02/2011 Mitral valve disorder Margie Tsang M.D. Onset: 11/02/2011 Tricuspid valve disorder, non-rheumatic Margie Tsang M.D. Onset: Mixed hyperlipidemia Margie Tsang M.D. 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 Social History Type Date Description Comments Sex Unknown Tobacco Use Start: Unknown Never Smoked Cigarettes ETOH Use Consumes 1 glass of less than 1/2 cup wine per week per day Tobacco Use Start: Unknown Patient has never smoked Recreational Drug Use Never Used Drugs Smoking Status Reviewed: 05/26/19 Patient has never smoked Exercise Type/Frequency 03/10/2018 Does not exercise Exercise Type/Frequency Exercises regularly Allergies, Adverse Reactions, Alerts Active Allergies Reaction Severity Comments Date Sulfa 07/30/2007 lactose intolerant 07/30/2007 Medications Active Medications SIG Qnty Indications Ordering Date Provider Glucosamine-Chondroiti 1 po qd Unknown n 500-400 Capsules Flaxseed Oil 1 day Unknown 1000mg Misc Vitamin D 1 qd Unknown 5000Iu Gabapentin 2 at night Unknown 100mg Capsules Melatonin 2 po qhs Unknown 1mg Capsules Voltaren apply to affected 1tubes Unknown 1% Gel area every pm and prn [place]-3 Fish Oil 1 po qd Unknown 1000mg Capsules Preservision Areds 2 take one cap Unknown twice daily Areds 2 Capsules Levothyroxine Sodium 1 by mouth every Unknown day 50mcg Tablets Rosuvastatin Calcium take 1 tablet by Unknown 20mg mouth once daily Tablets Plavix 1 by mouth every 90tabs Ottoniel S. 75mg Tablets day Megan Prado Probiotic 2 by mouth every Unknown Capsules day Escitalopram Oxalate 1 by mouth every Unknown 5mg day Tablets Medications Administered in Office Medication SIG Qnty Indications Ordering Provider Date Depomedrol 40MG Tony Martínez M.D. 10/19/2015 Injection Celestone 3 mg and 3mg Maria D Cloud, 06/09/2013 Injection Megan Celestone 3 mg and 3mg Maria D Cloud, 02/10/2013 Injection Megan Depomedrol 80MG Amaris Smith M.D. 06/19/2012 Injection Immunizations Description No Information Available Vital Signs Date Vital Result Comment 05/26/2019 9:57am Height 70 inches 5'10" Weight 174.00 lb Heart Rate 68 /min BP Systolic Sitting 122 mmHg BP Diastolic Sitting 70 mmHg BMI (Body Mass Index) 25.0 kg/m2 10/21/2018 2:55pm Height 70 inches 5'10" Weight 164.38 lb with shoes Heart Rate 79 /min BP Systolic 116 mmHg ule, reg cuff BP Diastolic 68 mmHg ule, reg cuff BP Systolic Sitting 114 mmHg ule, reg cuff BP Diastolic Sitting 62 mmHg ule, reg cuff BMI (Body Mass Index) 23.6 kg/m2 Ejection Fraction 55-60% echo 12/04/17 Results Description No Information Available Procedures Date Code Description Status 04/11/2019 54896 Interrogation Dev Loop Recorder Incl Physician Completed Analysis,Rev,Repor 03/11/2019 [id number] Implantable Cardio System Loop Recorder Sys Remota Completed Data Acquistio 03/11/2019 04178 Interrogation Dev Loop Recorder Incl Physician Completed Analysis,Rev,Repor 02/08/2019 [id number] Implantable Cardio System Loop Recorder Sys Remota Completed Data Acquistio 02/08/2019 46545 Interrogation Dev Loop Recorder Incl Physician Completed Analysis,Rev,Repor 01/08/2019 [id number] Implantable Cardio System Loop Recorder Sys Remota Completed Data Acquistio 01/08/2019 15005 Interrogation Dev Loop Recorder Incl Physician Completed Analysis,Rev,Repor 12/08/2018 [id number] Implantable Cardio System Loop Recorder Sys Remota Completed Data Acquistio 12/08/2018 90943 Interrogation Dev Loop Recorder Incl Physician Completed Analysis,Rev,Repor 06/25/2016 [id number] Diabetic Retinal Eye Exam Completed Medical Devices Description No Information Available Encounters Description No Information Available Assessments Date Code Description Provider 05/26/2019 I63.9 Cerebral infarction, unspecified Ottoniel Prado M.D. 05/26/2019 G62.9 Polyneuropathy, unspecified Ottoniel Prado M.D. 04/11/2019 I63.9 Cerebral infarction, unspecified Margie Tsang M.D. 04/11/2019 Z95.818 Presence of other cardiac implants and Margie Tsang M.D. grafts 03/11/2019 I63.9 Cerebral infarction, unspecified Margie Tsang M.D. 03/11/2019 Z95.818 Presence of other cardiac implants and Margie Tsang M.D. grafts 02/08/2019 I63.9 Cerebral infarction, unspecified Margie Tsang M.D. 02/08/2019 Z95.818 Presence of other cardiac implants and Margie Tsang M.D. grafts 01/08/2019 I63.9 Cerebral infarction, unspecified Margie Tsang M.D. 01/08/2019 Z95.818 Presence of other cardiac implants and Margie Tsang M.D. grafts 12/08/2018 I63.9 Cerebral infarction, unspecified Margie Tsang M.D. 12/08/2018 Z95.818 Presence of other cardiac implants and Margie Tsang M.D. grafts Plan of Treatment 05/26/2019 - Ottoniel Prado M.D.I63.9 Cerebral infarction, unspecifiedRecommendations:I think you can stop having your heart monitor checked or have it [id number] Polyneuropathy, unspecifiedFollow up:1 YEAR Functional Status Description No Information Available Mental Status Description No Information Available Referrals Description No Information Available
--- OUTSIDE RECORDS SUMMARY | 2019-06-11 11:13 | XMS REPORT | Continuity of Care Document ---
:1940 External Reference #:[id number] Author Name Ottoniel Prado M.D. (transmitted by agent of provider Adalgisa Goldman) Address [address] [place] [address], [place] [address] Care Team Providers Name Role Phone Max Newsome MD - Family Medicine Care Team Information Oxidized Finish Plater Problems Active Problems Provider Date Electrocardiogram abnormal [...] 1% Gel area every pm and prn [place]-3 Fish Oil 1 po qd Unknown 1000mg [...] Information Available Procedures Date Code Description Status 05/12/2019 77102 Interrogation Dev Loop Recorder Incl Physician Completed Analysis,Rev,Repor 04/11/2019 80774 Interrogation Dev Loop Recorder Incl Physician Completed Analysis,Rev,Repor 03/11/2019 51704 Implantable Cardio System Loop Recorder Sys Remota Completed Data Acquistio 03/11/2019 71028 Interrogation Dev Loop Recorder Incl Physician Completed Analysis,Rev,Repor 02/08/2019 [id number] Implantable Cardio System Loop Recorder Sys Remota Completed Data Acquistio 02/08/2019 68447 Interrogation Dev Loop Recorder Incl Physician Completed Analysis,Rev,Repor 01/08/2019 [id number] Implantable Cardio System Loop Recorder Sys Remota Completed Data Acquistio 01/08/2019 00430 Interrogation Dev Loop Recorder Incl Physician Completed Analysis,Rev,Repor 06/25/2016 [id number] Diabetic Retinal Eye Exam Completed Medical Devices Description No Information Available Encounters Type Date Location Provider Dx Diagnosis Office Visit 05/26/2019 [facility] Ottoniel [facility]aud[facility] hx of TIA 9:45a Megan Prado (TIA), and cereb infrc w/o resid deficits G62.9 Polyneuropathy, unspecified Assessments Date Code Description Provider 05/26/2019 Z86.73 Personal history of transient ischemic Ottoniel Prado M.D. attack (TIA), and cerebral infarction without residual deficits 05/26/2019 G62.9 Polyneuropathy, unspecified Ottoniel Prado M.D. 05/12/2019 I63.9 Cerebral infarction, unspecified Margie Tsang M.D. 05/12/2019 Z95.818 Presence of other cardiac implants and Margie Tsang M.D. grafts 04/11/2019 I63.9 Cerebral infarction, unspecified Margie Tsang [...] Plan of Treatment 05/26/2019 - Ottoniel Prado M.D.Z86.73 Personal history of transient ischemic attack (TIA), and cerebral infarction without [id number] Polyneuropathy, unspecifiedFollow up:1 YEAR Functional Status Description No Information Available Mental Status Description No Information Available Referrals Description No Information Available
--- OUTSIDE RECORDS SUMMARY | 2019-06-11 11:13 | XMS REPORT | Continuity of Care Document ---
:1940 External Reference #:[id number] Author Name Margie Tsang M.D. (transmitted by agent of provider Dory Azar) Address [address] [place] [id number] Care Team Providers Name Role Phone Max Newsome MD - Family Medicine Care Team Information Telecommunications Officer [phone] Problems Active Problems Provider Date Electrocardiogram abnormal [...] 1% Gel area every pm and prn Linden-3 Fish Oil 1 po qd Unknown 1000mg Capsules Preservision Areds 2 take one cap Unknown twice daily Areds 2 Capsules Levothyroxine Sodium 1 by mouth every Unknown day 50mcg Tablets Rosuvastatin Calcium take 1 tablet by Unknown 20mg mouth once daily Tablets Plavix 1 by mouth every 90tabs Ottoniel SEnedelia 75mg Tablets day Megan Prado Probiotic 2 [...] Available Procedures Date Code Description Status 05/12/2019 94824 Interrogation Dev Loop Recorder Incl Physician Completed Analysis,Rev,Repor 04/11/2019 [id number] Interrogation Dev Loop Recorder Incl Physician Completed Analysis,Rev,Repor 03/11/2019 [id number] Implantable Cardio System Loop Recorder Sys Remota Completed Data Acquistio 03/11/2019 53913 Interrogation Dev Loop Recorder Incl Physician Completed Analysis,Rev,Repor 02/08/2019 [id number] Implantable Cardio System Loop Recorder Sys Remota Completed Data Acquistio 02/08/2019 [id number] Interrogation Dev Loop Recorder Incl Physician Completed Analysis,Rev,Repor 01/08/2019 [id number] Implantable Cardio System Loop Recorder Sys Remota Completed Data Acquistio 01/08/2019 40570 Interrogation Dev Loop Recorder Incl Physician Completed Analysis,Rev,Repor 06/25/2016 [id number] Diabetic Retinal Eye Exam Completed Medical Devices Description No Information Available Encounters Description No Information Available Assessments Date Code Description Provider 05/26/2019 Z86.73 [...] ischemic attack (TIA), and cerebral infarction without [id number] Polyneuropathy, unspecifiedFollow up:1 YEAR Functional Status Description No Information Available Mental Status Description No Information Available Referrals Description No Information Available
[2019-06-11 12:10] VITALS: BP 123/67
--- NOTE | 2019-06-11 13:51 | UC ---
General HPI - HPI Summary HPI Summary: Patient is an 79-year-old male presenting with with multiple abrasions after falling yesterday afternoon at unknown time. Patient states he did hit his forehead and his nose, along with his right elbow and his right lazo. Denies loss of consciousness. Denies blurry vision. Denies nausea and vomiting. Denies headache. Denies neck pain. Denies difficulty walking. Patient denies any pain currently but states that the abrasion on his elbow will not stop bleeding. Patient does state that he takes Plavix daily "for his heart." States he is up-to-date on his tetanus. - History of Current Complaint Chief Complaint: UCTrauma Stated Complaint: FACIAL/ELBOW INJURY Hx Obtained From: Patient Pain Intensity: 0 - Allergy/Home Medications Allergies/Adverse Reactions: Allergies Allergy/AdvReac Type Severity Reaction Status Date / Time Sulfa (Sulfonamide Allergy Intermediate "FLU LIKE Verified 06/11/19 12:11 Antibiotics) SYMPTOMS" lactose Allergy GI Upset Verified 06/11/19 12:11 Home Medications: Home Medications Gabapentin CAP(*) [Neurontin 100 mg CAP(*)] 200 mg PO BEDTIME 08/04/12 [History Confirmed 06/11/19] Diclofenac 1% GEL (NF) [Voltaren 1% GEL (NF)] 1 applic TOPICAL QID PRN 10/22/14 [History Confirmed 06/11/19] Cholecalciferol TAB* [Vitamin D TAB*] 5,000 units PO QAM 07/05/16 [History Confirmed 06/11/19] Flaxseed Oil 1 cap PO QAM 07/05/16 [History Confirmed 06/11/19] Gluc Campoverde/Chondro Campoverde A/Vit C/Mn [Glucosamine Chondroitin Tab] 1 tab PO QAM [History Confirmed 06/11/19] Stacy-3 Fatty Acids (Nf) [Fish Oil (NF)] 1,000 mg PO QAM 07/05/16 [History Confirmed 06/11/19] Rosuvastatin Calcium [Crestor] 20 mg PO QAM 12/03/17 [History Confirmed 06/11/19 ] L.acidoph,Paracasei, B.lactis [Probiotic] 1 each PO BID 02/28/18 [History Confirmed 06/11/19] Clopidogrel TAB* [Plavix TAB*] 75 mg PO QAM 06/12/18 [History Confirmed 06/11/19 ] Levothyroxine TAB* [Synthroid TAB*] 50 mcg PO QAM 06/12/18 [History Confirmed ] Melatonin (NF) 1 mg PO BEDTIME 06/12/18 [History Confirmed 06/11/19] FLUoxetine CAP* [Prozac CAP*] 1 tab PO DAILY 06/11/19 [History Confirmed ] PMH/Surg Hx/FS Hx/Imm Hx Endocrine History: Hypothyroidism, Dyslipidemia - Surgical History Surgical History: Yes Surgery Procedure, Year, and Place: Loop Recorder 03/18. RT KNEE SCOPE,. LT HEEL SPURS,. TONSILS,. PROSTATECTOMY,. APRIL FUNDOPLICATION,. LASIK ON EYES ,. Appendix 06/2016;. Lumbar Laminectomy - Family History Known Family History: Positive: Other - meniere's disease (mother) Negative: Cardiac Disease, Hypertension, Diabetes - Social History Alcohol Use: Daily Alcohol Amount: 2 ounces of wine before bed Substance Use Type: None Smoking Status (MU): Never Smoked Tobacco Have You Smoked in the Last Year: No - Immunization History Most Recent Influenza Vaccination: 2016 Most Recent Tetanus Shot: >5yrs Most Recent Pneumonia Vaccination: >5yrs Review of Systems All Other Systems Reviewed And Are Negative: Yes Constitutional: Positive: Negative Skin: Positive: Other - abrasion forehead, elbow, nose, lazo Eyes: Positive: Negative Respiratory: Positive: Negative Cardiovascular: Positive: Negative Gastrointestinal: Positive: Negative Motor: Positive: Negative Musculoskeletal: Positive: Negative Neurological/Mental Status: Positive: Negative. Negative: Headache Physical Exam - Summary Physical Exam Summary: Vital Signs Reviewed: Yes A+Ox3, no distress, well-appearing, younger than stated age Eyes: Conjunctiva Clear, AMARI. EOM intact and full, no periorbital ecchymosis ENT: Hearing grossly normal, no rhinorrhea, no otorrhea Neck: Positive: Supple, nontender, no herrera sign Respiratory: Positive: No respiratory distress, No accessory muscle use + CTA throughout no w/r Cardiovascular: RRR nl s1, s2 no m/r = Musculoskeletal Exam: ARRIETA x 4 without difficulty Strength Intact, ROM Intact Neurological: Positive: Alert, CN II-XII intact, normal gait, negative romberg, negative, finger to nose, negative heel to lazo Psychological: Positive: age appropriate behavior Skin: Positive: 3.5cm superficial minimally bleeding skin tear noted on right lateral elbow, superficial nonbleeding abrasions of right anterior lazo, bridge of nose, and right upper forehead Vital Signs: Initial Vital Signs Temp 97.7 F 06/11/19 12:05 Pulse 67 06/11/19 12:05 Resp 16 06/11/19 12:05 BP 123/67 06/11/19 12:05 Pulse Ox 100 06/11/19 12:05 Diagnostics - Radiology CT brain Radiology Interpretation Completed By: Radiologist Summary of Radiographic Findings: IMPRESSION: 1. No acute intracranial abnormality. 2. 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 3. Mild chronic small vessel ischemic disease. Course/Dx - Course Course Of Treatment: I ordered a CT patient age of 79 and daily Plavix use.Patient CT negative for acute intracranial process. Patient's abrasions and skin tear were irrigated and dressings were applied by VADIM Grande. Patient states he is up-to-date on tetanus and he did not receive a booster today. I educated on wound care and signs of infection. I instructed to return to the emergency room if any signs of infection occur. Patient was understanding and agreed with the treatment plan. - Diagnoses Provider Diagnosis: Multiple abrasions, Skin tear of elbow without complication Discharge ED - Sign-Out/Discharge Documenting (check all that apply): Patient Departure All imaging exams completed and their final reports reviewed: No Studies - Discharge Plan Condition: Stable Disposition: HOME Patient Education Materials: Abrasion (ED), Skin Tear (ED) Referrals: Max Newsome MD [Primary Care Provider] - Additional Instructions: Keep your wounds as clean and dry as possible for the first 24-48 hours. After that, you may gently wash with soap and warm water daily. Change dressings as needed. Return or go to the emergency department if you notice any redness, swelling, fluid drainage, fever, or nausea and vomiting. - Billing Disposition and Condition Condition: STABLE Disposition: Home
== END 2019-06-11 14:38 | disposition home or self-care (01) ==
LOC: UCEAST 11:07
DX: T14.8XXA Other injury of unspecified body region, initial encounter (principal); E03.9 Hypothyroidism, unspecified; E78.5 Hyperlipidemia, unspecified; I67.82 Cerebral ischemia; S51.011A Laceration without foreign body of right elbow, initial encounter; Z88.2 Allergy status to sulfonamides; Z79.890 Hormone replacement therapy; Z79.899 Other long term (current) drug therapy; Z91.011 Allergy to milk products; W19.XXXA Unspecified fall, initial encounter; Y92.9 Unspecified place or not applicable
CPT/HCPCS: 70450; 99212; G0463